=== PATIENT | male | born 1945 | race Caucasian/White ===

== ENCOUNTER 2017-05-27 06:46 | Inpatient (IN) | payer MEDICARE ==
[~2017-05-27] VITALS: Ht 177.8 cm; Wt 91.9 kg
[2017-05-27] VITALS (15 sets, daily range): BP systolic 107–167; BP diastolic 58–85; PULSE 46–141; RESP 15–20; TEMP 98.2–99.2; O2SAT 87–100
[~2017-05-27 06:46] MED LIST: AMLO2.5T PO; CALC600T12 PO; DIOV320T PO; DORZ1SOL2 LEFT EYE; FERR220E3 PO; FIORIC PO; FISH120014 PO; KLON2TAB PO; OMEP20TA39 PO; RITA20TA PO; ROXI5TAB4 PO; SINE50TA PO; TIZA4 PO; VITA-13 PO; ZOLP10TA3 PO
[2017-05-27] MEDS ORDERED: AMLO2.5T PO (07:07)
[2017-05-27] MEDS ORDERED: OMEP40CA2 (07:07)
[2017-05-27] MEDS ORDERED: DORZ2SOL LEFT EYE (07:07)
[2017-05-27] MEDS ORDERED: ZOLP10TA3 PO (07:07)
[2017-05-27] MEDS ORDERED: VALS1TAB70 PO (07:07)
[2017-05-27] MEDS ORDERED: FISH1000 (07:07)
[2017-05-27] MEDS ORDERED: ACET1TAB63 (07:07)
[2017-05-27] MEDS ORDERED: BUTA1CAP PO (07:07)
[2017-05-27] MEDS ORDERED: VITA400T14 PO (07:07)
[2017-05-27] MEDS ORDERED: FERR325T20 (07:07)
[2017-05-27] MEDS ORDERED: LEVO50TA4 PO (07:07)
[2017-05-27] MEDS ORDERED: CLON2TAB PO (07:07)
[2017-05-27] MEDS ORDERED: CARB25TA9 PO (07:07)
[2017-05-27] MEDS ORDERED: METH20CA4 PO (07:07)
[2017-05-27] MEDS ORDERED: TIZA4TAB PO (07:07)
[2017-05-27] MEDS ORDERED: OXYC1TAB63 PO (07:07)
--- NOTE | 2017-05-27 07:24 | PD ---
HPI Chief Complaint: Respiratory Symptoms Time Seen by Provider: 07:16 Travel History International Travel<30 days: No Contact w/Intl Traveler<30days: No Traveled to known affect area: No History of Present Illness HPI Patient is a 71-year-old male presents emergency department for evaluation of cough congestion and production of brown sputum for the past 3 days. Patient has a history of Parkinson's recurrent pneumonia. According to EMS the initial room air sat in the field was in the mid 80s, he was placed on DuoNeb treatment on arrival to the emergency department he satting fairly well on 3 L nasal cannula. States she has had pneumonia several times in the past and has been admitted several times in the past for it. Symptoms for the past 3 days, gradually worsening, context and associated signs and symptoms as above PFSH Past Medical History Anemia: Yes Arthritis: Yes Asthma: No Autoimmune Disease: No Blood Disorders: No Anxiety: Yes Depression: Yes Heart Rhythm Problems: No Cancer: No Cardiovascular Problems: Yes (LBBB, cardioversion for A-Flutter) High Cholesterol: No Chemotherapy: No Chest Pain: No Congestive Heart Failure: No COPD: No Cerebrovascular Accident: No Diabetes: No Diminished Hearing: No Endocrine: No Gastrointestinal Disorders: Yes (ERROSIVE GASTRITIS) GERD: Yes Glaucoma: No Genitourinary: No Headaches: Yes Hepatitis: No Hiatal Hernia: No Hypertension: Yes Immune Disorder: No Kidney Stones: No Medical other: Yes (PARKINSON'S) Musculoskeletal: Yes (hip, lumbar) Psychiatric: Yes Reproductive: No Respiratory: Yes Migraines: Yes Myocardial Infarction: No Radiation Therapy: No Renal Failure: No Seizures: Yes (1996) Sickle Cell Disease: No Sleep Apnea: No Thyroid Disease: No Ulcer: Yes (bulbar ulcer) Influenza Vaccination: No Past Surgical History Abdominal Surgery: Yes (appendectomy) AICD: No Appendectomy: Yes Arteriovenous Shunt: No Cardiac Surgery: No Cholecystectomy: No Ear Surgery: No Endocrine Surgery: No Eye Surgery: Yes (laser) Genitourinary Surgery: No Gynecologic Surgery: No Insulin Pump: No Joint Replacement: Yes Oral Surgery: No Pacemaker: No Thoracic Surgery: No Other Surgery: Yes Social History Alcohol Use: No Tobacco Use: No Substance Use: No Allergies-Medications (Allergen,Severity, Reaction): Coded Allergies: tramadol (Unverified Allergy, Severe, Seizures, 05/27/17) Reported Meds & Prescriptions Reported Meds & Active Scripts Active Reported Vitamin D2 (Ergocalciferol) 400 Unit Tab 50,000 Units PO DAILY Fish Oil ([place]-3 Fatty Acids) 340 Mg-1,000 Mg Cap 1,200 Mg Ferosul (Ferrous Sulfate) 325 Mg (65 Mg Iron) Tablet Levothyroxine (Levothyroxine Sodium) 50 Mcg Tab 50 Mcg PO DAILY Acetaminophen ER (Acetaminophen) 650 Mg Tablet.er Dorzolamide Opth Drops (Dorzolamide HCl) 2% Soln 1 Drop LEFT EYE TID Fioricet (Ygtxucriai-Ncciebnuzdnii-Dndetwvx) 50-300-40 Mg Cap 1 Cap PO Q4H PRN Carbidopa-Levodopa 25-100 Mg Tab 2 Tab PO BID Oxycodone-Acetaminophen 5-325 mg Tab 1 Tab PO Q4H PRN Tizanidine (Tizanidine HCl) 4 Mg Tab 4 Mg PO TID Zolpidem (Zolpidem Tartrate) 10 Mg Tab 10 Mg PO HS PRN Clonazepam 2 Mg Tab 4 Mg PO HS Methylphenidate CD 24 HR (Methylphenidate HCl) 20 Mg Capcr 20 Mg PO TID Valsartan 320 Mg Tab 320 Mg PO DAILY Amlodipine (Amlodipine Besylate) 2.5 Mg Tab 2.5 Mg PO DAILY Omeprazole 40 Mg Cap 40 Mg DAILY Review of Systems Except as stated in HPI: all other systems reviewed are Neg Physical Exam Narrative GENERAL: Well-developed well-nourished, no obvious distress. SKIN: Focused skin assessment warm/dry. HEAD: Atraumatic. Normocephalic. EYES: Pupils equal and round. No scleral icterus. No injection or drainage. ENT: No nasal bleeding or discharge. Mucous membranes pink and moist. The right TM does show some brownish mucus behind the TM but no bulging. NECK: Trachea midline. No JVD. CARDIOVASCULAR: Regular rate and rhythm. No murmur appreciated. RESPIRATORY: No accessory muscle use. Clear to auscultation. Perhaps a little decrease in the right base. No rales no rhonchi. GASTROINTESTINAL: Abdomen soft, non-tender, nondistended. Hepatic and splenic margins not palpable. MUSCULOSKELETAL: No obvious deformities. No clubbing. No cyanosis. No edema. NEUROLOGICAL: Awake and alert. No obvious cranial nerve deficits. Motor grossly within normal limits. Normal speech. PSYCHIATRIC: Appropriate mood and affect; insight and judgment normal. Data Data Last Documented VS Vital Signs Date Time Temp Pulse Resp B/P (MAP) Pulse Ox O2 Delivery O2 Flow Rate FiO2 05/27/17 07:58 86 17 127/65 (85) 98 Nasal Cannula 05/27/17 06:54 3.00 05/27/17 06:50 98.9 Orders Orders Sepsis Workup Initiated (05/27/17 ) Electrocardiogram (05/27/17 07:20) Complete Blood Count With Diff (05/27/17 07:20) Comprehensive Metabolic Panel (05/27/17 07:20) Prothrombin Time / Inr (Pt) (05/27/17 07:20) Act Partial Throm Time (Ptt) (05/27/17 07:20) Lactic Acid Sepsis Protocol (05/27/17 07:20) Magnesium (Mg) (05/27/17 07:20) Phosphorus (Po4) (05/27/17 07:20) Lipase (05/27/17 07:20) Ckmb (Isoenzyme) Profile (05/27/17 07:20) Troponin I (05/27/17 07:20) Urinalysis - C+S If Indicated (05/27/17 07:20) Blood Culture (05/27/17 07:20) Chest, Single Ap (05/27/17 07:20) Blood Gas Venous (Vbg) (05/27/17 07:20) Ecg Monitoring (05/27/17 07:20) Iv Access Insert/Monitor (05/27/17 07:20) Oximetry (05/27/17 07:20) Oxygen Administration (05/27/17 07:20) Oxycodone-Acetamin 5-325 Mg (Percocet (05/27/17 07:45) Ceftriaxone Inj (Rocephin Inj) (05/27/17 08:00) Azithromycin Inj (Zithromax Inj) (05/27/17 08:00) CKMB (05/27/17 07:28) CKMB% (05/27/17 07:28) Sodium Chlor 0.9% 1000 Ml Inj (Ns 1000 M (05/27/17 09:00) Piperacil-Tazo 4.5 Gm Premix (Zosyn 4.5 (05/27/17 09:30) Vancomycin Inj (Vancomycin Inj) (05/27/17 09:30) Admit Order (Ed Use Only) (05/27/17 ) Labs Laboratory Tests Test 05/27/17 07:28 05/27/17 07:34 05/27/17 07:35 05/27/17 08:02 White Blood Count 4.5 TH/MM3 Red Blood Count 3.50 MIL/MM3 Hemoglobin 10.7 GM/DL Hematocrit 31.4 % Mean Corpuscular Volume 89.5 FL Mean Corpuscular Hemoglobin 30.5 PG Mean Corpuscular Hemoglobin Concent 34.1 % Red Cell Distribution Width 14.9 % Platelet Count 135 TH/MM3 Mean Platelet Volume 8.8 FL Neutrophils (%) (Auto) 74.0 % Lymphocytes (%) (Auto) 18.0 % Monocytes (%) (Auto) 6.6 % Eosinophils (%) (Auto) 1.0 % Basophils (%) (Auto) 0.4 % Neutrophils # (Auto) 3.3 TH/MM3 Lymphocytes # (Auto) 0.8 TH/MM3 Monocytes # (Auto) 0.3 TH/MM3 Eosinophils # (Auto) 0.0 TH/MM3 Basophils # (Auto) 0.0 TH/MM3 CBC Comment DIFF FINAL Differential Comment Prothrombin Time 10.2 SEC Prothromb Time International Ratio 1.0 RATIO Activated Partial Thromboplast Time 25.6 SEC Blood Urea Nitrogen 27 MG/DL Creatinine 0.97 MG/DL Random Glucose 90 MG/DL Total Protein 5.9 GM/DL Albumin 2.9 GM/DL Calcium Level 8.3 MG/DL Phosphorus Level 2.4 MG/DL Magnesium Level 1.6 MG/DL Alkaline Phosphatase 125 U/L Aspartate Amino Transf (AST/SGOT) 206 U/L Alanine Aminotransferase (ALT/SGPT) 35 U/L Total Bilirubin 1.5 MG/DL Sodium Level 127 MEQ/L Potassium Level 3.6 MEQ/L Chloride Level 94 MEQ/L Carbon Dioxide Level 21.7 MEQ/L Anion Gap 11 MEQ/L Estimat Glomerular Filtration Rate 77 ML/MIN Total Creatine Kinase 2017 U/L Creatine Kinase MB 6.2 NG/ML Creatine Kinase MB % 0.3 % Troponin I 0.02 NG/ML Lipase 61 U/L Lactic Acid Level 1.4 mmol/L Urine Color YELLOW Urine Turbidity CLEAR Urine pH 6.0 Urine Specific [place] 1.018 Urine Protein NEG mg/dL Urine Glucose (UA) NEG mg/dL Urine Ketones NEG mg/dL Urine Occult Blood NEG Urine Nitrite NEG Urine Bilirubin NEG Urine Urobilinogen 4.0 MG/DL Urine Leukocyte Esterase NEG Urine RBC LESS THAN 1 /hpf Urine WBC LESS THAN 1 /hpf Microscopic Urinalysis Comment CATH-CULT NOT IND Blood Gas Puncture Site RAC Blood Gas Patient Temperature 98.6 Venous Blood pH 7.38 Venous Blood Partial Pressure CO2 45 mmHg Venous Blood Partial Pressure O2 17 mmHg Venous Blood HCO3 26 mmol/L Venous Blood Oxygen Saturation 20 % Venous Blood Oxygen Content 2.9 Vol % Venous Blood Base Excess 1.3 mmol/L Oxygen Delivery Device NASAL CANNULA Blood Gas Liter Flow 3 L/M MDM Medical Decision Making Medical Screen Exam Complete: Yes Emergency Medical Condition: Yes Differential Diagnosis Pneumonia, sepsis, hypoxic respiratory failure Narrative Course Patient room to the emergency department, appears fairly well, pneumonia on chest x-ray, started on broad-spectrum antibiotics as he is recently been on azithromycin. He is tolerating 3 L nasal cannula just fine. Patient was discussed with hospitalist for admission will go to [facility] given his high level of hypoxia prior to arrival. Discussed with the patient and his and they are agreeable as well per Diagnosis Primary Impression: Pneumonia Additional Impression: Acute respiratory failure with hypoxia Admitting Information Admitting Physician Requests: Admit Condition: Stable Ming Santiago MD May 27, 2017 07:24
[2017-05-27] MEDS ORDERED: oxyCODONE/ACETAMINOPHEN 5 MG/325 MG TAB PO ONE (07:45)
--- NOTE | 2017-05-27 07:47 | RADRPT ---
EXAM DATE/TIME: 05/27/2017 07:31 [facility] COMPARISON: CHEST SINGLE AP, October 08, 2015, 2:04. INDICATIONS : Shortness of breath. Cough. MEDICAL HISTORY : Hypertension. SURGICAL HISTORY : None. ENCOUNTER: Initial ACUITY: 3 days PAIN SCORE: 0/10 LOCATION: Bilateral chest FINDINGS: Bibasilar patchiness (right slightly worse than left) is consistent with probable pneumonia. Clinical correlation is recommended. The heart is stable. CONCLUSION: Bibasilar patchiness (right slightly worse than left) is consistent with probable pneumonia. Clinical correlation is recommended. Ming Stovall MD on May 27, 2017 at 7:43 Board Certified Radiologist. This report was verified electronically.
[2017-05-27 08:00] LABS: AUTOMATED NEUTROPHIL # 3.3 TH/MM3 (1.8-7.7); BASOPHIL % 0.4 % (0.0-2.0); HEMATOCRIT 31.4 % (39.0-51.0); HEMOGLOBIN 10.7 GM/DL (13.0-17.0); LYMPHOCYTE # 0.8 TH/MM3 (1.0-4.8); MEAN CELL VOLUME 89.5 FL (80.0-100.0); MEAN CORPUSCULAR HEMOGLOBIN 30.5 PG (27.0-34.0); MEAN CORPUSCULAR HGB CONC 34.1 % (32.0-36.0); MEAN PLATELET VOLUME 8.8 FL (7.0-11.0); MONO % 6.6 % (0.0-8.0); MONOCYTE # 0.3 TH/MM3 (0-0.9); PLATELET COUNT 135 TH/MM3 (150-450); RED CELL DISTRIBUTION WIDTH 14.9 % (11.6-17.2); WHITE BLOOD COUNT 4.5 TH/MM3 (4.0-11.0)
[2017-05-27] MEDS ORDERED: cefTRIAXone INJ 1,000 MG in SODIUM CHLORIDE 0.9% INJ 100 ML IV ONE (08:00)
[2017-05-27] MEDS ORDERED: AZITHROMYCIN INJ 500 MG in SODIUM CHLOR 0.9% 250 ML INJ 250 ML IV ONE (08:00)
[2017-05-27 08:04] LABS: PROTHROMBIN TIME - PATIENT 10.2 SEC (9.8-11.6)
[2017-05-27 08:12] LABS: ALBUMIN 2.9 GM/DL (3.4-5.0); ALT (GPT) 35 U/L (12-78); AST (GOT) 206 U/L (15-37); BICARBONATE 21.7 MEQ/L (21.0-32.0); BLOOD UREA NITROGEN 27 MG/DL (7-18); CALCIUM 8.3 MG/DL (8.5-10.1); CHLORIDE 94 MEQ/L (98-107); CREATININE 0.97 MG/DL (0.60-1.30); GLOMERULAR FILTRATION RATE 77 ML/MIN (>89); GLUCOSE,RANDOM 90 MG/DL (74-106); MAGNESIUM 1.6 MG/DL (1.5-2.5); PHOSPHORUS 2.4 MG/DL (2.5-4.9); SODIUM (NA) 127 MEQ/L (136-145)
[2017-05-27 08:26] LABS: ALKALINE PHOSPHATASE 125 U/L (45-117); TOTAL BILIRUBIN ADULT 1.5 MG/DL (0.2-1.0); TOTAL PROTEIN 5.9 GM/DL (6.4-8.2); TROPONIN I 0.02 NG/ML (0.02-0.05)
[2017-05-27 08:41] LABS: BILIRUBIN, URINE NEG (NEG); BLOOD, URINE NEG (NEG); GLUCOSE,URINE NEG (NEG); KETONE, URINE NEG (NEG); NITRITE,URINE NEG (NEG); URINE COLOR YELLOW (YELLW/STRAW); URINE LEUKOCYTE ESTERASE NEG (NEG)
[2017-05-27] MEDS ORDERED: SODIUM CHLOR 0.9% 1000 ML INJ 1,000 ML IV ONE (09:00)
[2017-05-27] MEDS ORDERED: VANCOMYCIN INJ 1,000 MG in SODIUM CHLOR 0.9% 250 ML INJ 250 ML IV ONE ×2 (09:30→09:45)
[2017-05-27] MEDS ORDERED: PIPERACIL-TAZO 4.5 GM PREMIX 100 ML IV ONE (09:30)
[2017-05-27] MEDS ORDERED: Vancomycin Consult Pharmacy 1 EA OTHER SCH (09:45)
[2017-05-27] MEDS ORDERED: RESP: ALBUTEROL 2.5 MG/IPRATROPIUM 0.5 MG NEB (PRN) INH (10:00)
[2017-05-27] MEDS ORDERED: guaiFENesin/DEXTROMETHORPHAN 200 MG/20 MG/10 ML CUP PO PRN (10:00)
[2017-05-27] MEDS ORDERED: ONDANSETRON HCL 4 MG/2 ML VIAL IV PUSH PRN (10:00)
[2017-05-27] MEDS: RESP: ALBUTEROL 2.5 MG/IPRATROPIUM 0.5 MG NEB (SCH) INH ×2 (10:47→15:30)
[2017-05-27] MEDS: LEVOFLOXACIN 750 MG PREMIX INJ 150 ML IV SCH (12:59)
[2017-05-27] MEDS: HEPARIN SODIUM - SQ 10,000 UNITS/ML VIAL SQ SCH ×2 (13:00→22:23)
--- NOTE | 2017-05-27 13:02 | HHI.HP ---
HPI Service [facility] Primary Care Physician Ashu Carreno III, MD Admission Diagnosis Pneumonia, Hypoxic Resp failure. Diagnoses: Chief Complaint: Short of breath Travel History International Travel<30 Days: No Contact w/Intl Traveler <30 Da: No Traveled to Known Affected Are: No History of Present Illness 71 years old male admitted to the ED with worsening short of breath and cough with dark brownish sputum for the last 3-4 days, patient has a history of Parkinson disease and recurrent pneumonia, he told me last pneumonia he had was 2 years ago, also he stated he was prescribed recently and Zithromax for what he stated "UTI urine infection ", patient denied fever or chills chest pain, no abdominal pain diarrhea constipation, dysuria urgency or frequency Review of Systems All systems reviewed and was positive for what is mentioned in history of present illness otherwise negative Past Family Social History Past Medical History anemia Arthritis Depression LBBB A flutter with cardioversion in the past Gastritis GERD Hypertension Parkinson disease Bilateral knee replacement Appendectomy Past Surgical History As above Allergies: Coded Allergies: tramadol (Unverified Allergy, Severe, Seizures, 05/27/17) Family History Review with the patient,not aware of significant medical history related to her problem runs in the family Social History Denied tobacco alcohol or illicit drug abuse Physical Exam Vital Signs Vital Signs Date Time Temp Pulse Resp B/P (MAP) Pulse Ox O2 Delivery O2 Flow Rate FiO2 05/27/17 12:05 62 20 107/58 (74) 96 Nasal Cannula 3.00 05/27/17 10:49 98 Nasal Cannula 3.00 05/27/17 07:58 86 17 127/65 (85) 98 Nasal Cannula 05/27/17 06:54 95 22 95 Nasal Cannula 3.00 05/27/17 06:50 98.9 95 129/69 (89) Physical Exam GENERAL: This is a well-nourished, well-developed patient, in no apparent distress. SKIN: No rashes, warm and dry HEAD: Atraumatic. Normocephalic. EYES: Pupils equal round and reactive. Extraocular motions intact. No scleral icterus. ENT: Nose without bleeding, or drainage, Airway patent. NECK: Trachea midline. Supple CARDIOVASCULAR: Regular rate and rhythm without murmurs, gallops, or rubs. RESPIRATORY: Bilateral crackles with diminished breath sounds bibasilar GASTROINTESTINAL: Abdomen soft, non-tender, nondistended. Positive bowel sounds MUSCULOSKELETAL: Extremities without clubbing, cyanosis, or edema. Pedal pulses appreciated NEUROLOGICAL: Awake and alert. Moves all extremity. Normal speech.no focal neurological deficit Laboratory Laboratory Tests Test 05/27/17 07:28 05/27/17 07:34 05/27/17 07:35 05/27/17 08:02 White Blood Count 4.5 Red Blood Count 3.50 Hemoglobin 10.7 Hematocrit 31.4 Mean Corpuscular Volume 89.5 Mean Corpuscular Hemoglobin 30.5 Mean Corpuscular Hemoglobin Concent 34.1 Red Cell Distribution Width 14.9 Platelet Count 135 Mean Platelet Volume 8.8 Neutrophils (%) (Auto) 74.0 Lymphocytes (%) (Auto) 18.0 Monocytes (%) (Auto) 6.6 Eosinophils (%) (Auto) 1.0 Basophils (%) (Auto) 0.4 Neutrophils # (Auto) 3.3 Lymphocytes # (Auto) 0.8 Monocytes # (Auto) 0.3 Eosinophils # (Auto) 0.0 Basophils # (Auto) 0.0 CBC Comment DIFF FINAL Differential Comment Prothrombin Time 10.2 Prothromb Time International Ratio 1.0 Activated Partial Thromboplast Time 25.6 Blood Urea Nitrogen 27 Creatinine 0.97 Random Glucose 90 Total Protein 5.9 Albumin 2.9 Calcium Level 8.3 Phosphorus Level 2.4 Magnesium Level 1.6 Alkaline Phosphatase 125 Aspartate Amino Transf (AST/SGOT) 206 Alanine Aminotransferase (ALT/SGPT) 35 Total Bilirubin 1.5 Sodium Level 127 Potassium Level 3.6 Chloride Level 94 Carbon Dioxide Level 21.7 Anion Gap 11 Estimat Glomerular Filtration Rate 77 Total Creatine Kinase 2017 Creatine Kinase MB 6.2 Creatine Kinase MB % 0.3 Troponin I 0.02 Lipase 61 Lactic Acid Level 1.4 Urine Color YELLOW Urine Turbidity CLEAR Urine pH 6.0 Urine Specific [place] 1.018 Urine Protein NEG Urine Glucose (UA) NEG Urine Ketones NEG Urine Occult Blood NEG Urine Nitrite NEG Urine Bilirubin NEG Urine Urobilinogen 4.0 Urine Leukocyte Esterase NEG Urine RBC LESS THAN 1 Urine WBC LESS THAN 1 Microscopic Urinalysis Comment CATH-CULT NOT IND Blood Gas Puncture Site RAC Blood Gas Patient Temperature 98.6 Venous Blood pH 7.38 Venous Blood Partial Pressure CO2 45 Venous Blood Partial Pressure O2 17 Venous Blood HCO3 26 Venous Blood Oxygen Saturation 20 Venous Blood Oxygen Content 2.9 Venous Blood Base Excess 1.3 Oxygen Delivery Device NASAL CANNULA Blood Gas Liter Flow 3 Date/Time Source Procedure Growth Status 05/27/17 07:40 Blood Peripheral Aerobic Blood Culture Pending Received 05/27/17 07:40 Blood Peripheral Anaerobic Blood Culture Pending Received Result Diagram: 05/27/1772705/27/17727 Imaging Last Impressions Chest X-Ray 05/27/17719 Signed Impressions: Service Date/Time: Saturday, May 27, 2017 07:31 - CONCLUSION: Bibasilar patchiness (right slightly worse than left) is consistent with probable pneumonia. Clinical correlation is recommended. MD Rashida Vela VTE Risk Assessment Rashida VTE Risk Assessment: Mod/High Risk (score >= 2) Caprini Risk Assessment Model Point Value = 1 Point Value = 2 Point Value = 3 Point Value = 5 Age 41-60 Minor surgery BMI > 25 kg/m2 Swollen legs Varicose veins or History of unexplained or recurrent spontaneous Oral contraceptives or hormone replacement Sepsis (< 1 month) Serious lung disease, including pneumonia (< 1 month) Abnormal pulmonary function Acute myocardial infarction Congestive heart failure (< 1 month) History of inflammatory bowel disease Medical patient at bed rest Age 61-74 Arthroscopic surgery Major open surgery (> 45 min) Laparoscopic surgery (> 45 min) Malignancy Confined to bed (> 72 hours) Immobilizing plaster cast Central venous access Age >= 75 History of VTE Family history of VTE Factor V Leiden Prothrombin [id number] Lupus anticoagulant Anticardiolipin antibodies Elevated serum homocysteine Heparin-induced thrombocytopenia Other congenital or acquired thrombophilia Stroke (< 1 month) Elective arthroplasty Hip, pelvis, or leg fracture Acute spinal cord injury (< 1 month) Prophylaxis Regimen Total Risk Factor Score Risk Level Prophylaxis Regimen 0-1 Low Early ambulation 2 Moderate Order ONE of the following: *Sequential Compression Device (SCD) *Heparin 5000 units SQ BID 3-4 Higher Order ONE of the following medications: *Heparin 5000 units SQ TID *Enoxaparin/Lovenox 40 mg SQ daily (WT < 150 kg, CrCl > 30 mL/min) *Enoxaparin/Lovenox 30 mg SQ daily (WT < 150 kg, CrCl > 10-29 mL/min) *Enoxaparin/Lovenox 30 mg SQ BID (WT < 150 kg, CrCl > 30 mL/min) AND/OR *Sequential Compression Device (SCD) 5 or more Highest Order ONE of the following medications: *Heparin 5000 units SQ TID (Preferred with Epidurals) *Enoxaparin/Lovenox 40 mg SQ daily (WT < 150 kg, CrCl > 30 mL/min) *Enoxaparin/Lovenox 30 mg SQ daily (WT < 150 kg, CrCl > 10-29 mL/min) *Enoxaparin/Lovenox 30 mg SQ BID (WT < 150 kg, CrCl > 30 mL/min) AND *Sequential Compression Device (SCD) Assessment and Plan Assessment and Plan 71 years old male with history of recurrent pneumonia last one was 2 years ago presented with short of breath Bilateral pneumonia CAP: -Showed on chest x-ray, admit to telemetry -Started on Rocephin and Zithromax, will upgrade to broader spectrum Vanco Zosyn and Levaquin considering his comorbidity and high suspicious for recent pneumonia. -Check sputum culture, urine antigen for Legionella and pneumococcal -Check lactic acid -IV fluid gentle -DuoNeb -Consider starting Solu-Medrol H/O hypertension, parkinsonism, hypothyroidism, LBBB, depression: Continue home med rec DVT prophylaxis with heparin and SCD Discussed Condition With Patient in ED physician Physician Certification 2 Midnight Certification Type: Admission for Inpatient Services Order for Inpatient Services The services are ordered in accordance with Medicare regulations or non- Medicare payer requirements, as applicable. In the case of services not specified as inpatient-only, they are appropriately provided as inpatient services in accordance with the 2-midnight benchmark. Estimated LOS (days): 3 days is the estimated time the patient will need to remain in the hospital, assuming treatment plan goals are met and no additional complications. Post-Hospital Plan: Not yet determined Bautista Sam MD May 27, 2017 13:01
[2017-05-27] MEDS: SODIUM CHLOR 0.9% 1000 ML INJ 1,000 ML IV SCH (15:09)
[2017-05-27] MEDS ORDERED: ACETAMINOPHEN 325 MG TAB PO PRN (17:00)
[2017-05-27] MEDS ORDERED: ACETAMINOPHEN/HYDROcodone 325 MG/5 MG TAB PO PRN (17:00)
[2017-05-27] MEDS: PIPERACIL-TAZO 4.5 GM PREMIX 100 ML IV SCH ×2 (18:30→23:28)
[2017-05-27] MEDS ORDERED: MIDAZOLAM HCL 5 MG/ML VIAL (1 ML) ONE (19:13)
[2017-05-27] MEDS ORDERED: MISCELLANEOUS NURSING INFORMATION XX SCH (19:30)
[2017-05-27] MEDS ORDERED: CHLORHEXIDINE GLUCONATE 2 % 1 PACK (2 CLOTHS) TOP PRN (19:30)
--- NOTE | 2017-05-27 19:34 | PD.CONS ---
[facility] Service Critical Care Medicine Consult Requested By Dr. Sam Reason for Consult Critical care management after choking Primary Care Physician Ashu Carreno III, MD History of Present Illness 71-year-old male with past medical history of Parkinson's disease and recurrent pneumonia. 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 His chest x-ray showed bibasilar infiltrates. He had a normal white blood cell count. He received Rocephin, azithromycin, Zosyn, vancomycin in the emergency department. He was admitted to the hospitalist service and placed on Zosyn, vancomycin, Levaquin. He was on 3 L nasal cannula with sats 96-98%. Tonight he was eating chicken and mashed potatoes and had a choking episode. While choking he vomited. He became cyanotic and sats were in the 70s. Large amounts of food were suctioned from his oropharynx by the respiratory therapist and [facility] nurse. Sats remained in the 70s. I intubated patient and he was transferred to CVICU where he underwent diagnostic and therapeutic bronchoscopy Review of Systems ROS Limitations: Intubated Past Family Social History Allergies: Coded Allergies: tramadol (Unverified Allergy, Severe, Seizures, 05/27/17) Past Medical History Parkinson's disease Recurrent pneumonia with prior prolonged hospitalization in 2007 Hypertension Left bundle branch block Iron deficiency anemia Hypothyroidism Anxiety Duodenal ulcers, gastritis, colonic ulcers Past Surgical History Thorascopic wedge biopsy right upper lobe and right lower lobe 01/08/2003 (Dr. Jie Guerrero) Left carpal tunnel release 04/08/2002 Right wrist arthroscopic and joint debridement 07/28/03 Right scaphoid ossicle excision 12/29/03 Diagnostic and therapeutic bronchoscopy 02/04/2008 Family History Unable to obtain from patient due to clinical condition Physical Exam Vital Signs Vital Signs Date Time Temp Pulse Resp B/P (MAP) Pulse Ox O2 Delivery O2 Flow Rate FiO2 05/27/17 17:52 99.2 90 18 153/85 (107) 95 05/27/17 15:43 05/27/17 15:42 46 16 140/66 (90) 100 Aerosol Mask 05/27/17 12:05 62 20 107/58 (74) 96 Nasal Cannula 3.00 05/27/17 10:49 98 Nasal Cannula 3.00 05/27/17 07:58 86 17 127/65 (85) 98 Nasal Cannula 05/27/17 06:54 95 22 95 Nasal Cannula 3.00 05/27/17 06:50 98.9 95 129/69 (89) Physical Exam GENERAL: Well-developed, chronically ill-appearing male who is laying in CICU bed. SKIN: Warm and dry. HEAD: Atraumatic. Normocephalic. EYES: Pupils 2 mm and sluggishly reactive bilaterally.. No scleral icterus. No injection or drainage. ENT: There is vomitus in his left nare. NECK: Trachea midline. Jugular veins flat. CARDIOVASCULAR: Tachycardic, regular. No murmurs rubs or gallops. RESPIRATORY: Distant breath sounds bilaterally with rhonchi. GASTROINTESTINAL: Abdomen soft, non-tender, nondistended. Hepatic and splenic margins not palpable. MUSCULOSKELETAL: Extremities without clubbing, cyanosis. Trace pedal edema. NEUROLOGICAL: Eyes open with some purposeful spontaneous movements of his extremities. Not following commands. Laboratory Laboratory Tests Test 05/27/17 07:28 05/27/17 07:34 05/27/17 07:35 05/27/17 08:02 White Blood Count 4.5 Red Blood Count 3.50 Hemoglobin 10.7 Hematocrit 31.4 Mean Corpuscular Volume 89.5 Mean Corpuscular Hemoglobin 30.5 Mean Corpuscular Hemoglobin Concent 34.1 Red Cell Distribution Width 14.9 Platelet Count 135 Mean Platelet Volume 8.8 Neutrophils (%) (Auto) 74.0 Lymphocytes (%) (Auto) 18.0 Monocytes (%) (Auto) 6.6 Eosinophils (%) (Auto) 1.0 Basophils (%) (Auto) 0.4 Neutrophils # (Auto) 3.3 Lymphocytes # (Auto) 0.8 Monocytes # (Auto) 0.3 Eosinophils # (Auto) 0.0 Basophils # (Auto) 0.0 CBC Comment DIFF FINAL Differential Comment Prothrombin Time 10.2 Prothromb Time International Ratio 1.0 Activated Partial Thromboplast Time 25.6 Blood Urea Nitrogen 27 Creatinine 0.97 Random Glucose 90 Total Protein 5.9 Albumin 2.9 Calcium Level 8.3 Phosphorus Level 2.4 Magnesium Level 1.6 Alkaline Phosphatase 125 Aspartate Amino Transf (AST/SGOT) 206 Alanine Aminotransferase (ALT/SGPT) 35 Total Bilirubin 1.5 Sodium Level 127 Potassium Level 3.6 Chloride Level 94 Carbon Dioxide Level 21.7 Anion Gap 11 Estimat Glomerular Filtration Rate 77 Total Creatine Kinase 2017 Creatine Kinase MB 6.2 Creatine Kinase MB % 0.3 Troponin I 0.02 Lipase 61 Lactic Acid Level 1.4 Urine Color YELLOW Urine Turbidity CLEAR Urine pH 6.0 Urine Specific [place] 1.018 Urine Protein NEG Urine Glucose (UA) NEG Urine Ketones NEG Urine Occult Blood NEG Urine Nitrite NEG Urine Bilirubin NEG Urine Urobilinogen 4.0 Urine Leukocyte Esterase NEG Urine RBC LESS THAN 1 Urine WBC LESS THAN 1 Microscopic Urinalysis Comment CATH-CULT NOT IND Blood Gas Puncture Site RAC Blood Gas Patient Temperature 98.6 Venous Blood pH 7.38 Venous Blood Partial Pressure CO2 45 Venous Blood Partial Pressure O2 17 Venous Blood HCO3 26 Venous Blood Oxygen Saturation 20 Venous Blood Oxygen Content 2.9 Venous Blood Base Excess 1.3 Oxygen Delivery Device NASAL CANNULA Blood Gas Liter Flow 3 Date/Time Source Procedure Growth Status 05/27/17 07:40 Blood Peripheral Aerobic Blood Culture Pending Received 05/27/17 07:40 Blood Peripheral Anaerobic Blood Culture Pending Received 05/27/17 07:35 Urine Clean Catch Legionella Antigen - Final PRESUMPTIVE NEGATIVE FOR LEGIONELLA P... Complete 05/27/17 07:35 Urine Clean Catch Streptococcus pneumoniae Antigen (M - Final PRESUMPTIVE NEGATIVE FOR STREPTOCOCCU... Complete Result Diagram: 05/27/1728 05/27/1728 Assessment and Plan Problem List: (1) Left bundle branch block ICD Code: I44.7 - Left bundle-branch block, unspecified Status: Chronic (2) Hypertension ICD Code: I10 - Hypertension Status: Chronic (3) Acute respiratory failure with hypoxia ICD Code: J96.01 - Acute respiratory failure with hypoxia Status: Acute (4) Choking due to food in larynx ICD Code: T17.320A - Food in larynx causing asphyxiation, initial encounter Status: Acute Assessment and Plan NEURO: Parkinson's disease Anxiety Propofol for sedation Fentanyl for analgosedation Target RASS -2 Daily sedation vacation OPHTHO: Glaucoma Continue trusopt RESP: Choking with aspiration and airway Acute respiratory failure Acute respiratory acidemia on ABG postintubation. PRVC adjusted and then ultimately placed on PC/AC to achieve oxygenation and ventilation. PEEP 10 Ventilator Bundle DuoNeb every 4 hours. Daily sedation vacation and spontaneous breathing trial. CXR bilateral opacities, satisfactory ETT position. CV: Left bundle branch block Hypertension Continue Norvasc 2.5 daily Hydralazine as needed for systolic blood pressure greater than 160 NS 1 L bolus now. 0.9 NaCl at 125 L per hour GI: Speech therapy to evaluate swallow when extubated. FEN/RENAL: Insert Corona. Monitor intake and output. Monitor electrolytes. Replace electrolytes as indicated per ICU electrolyte replacement protocol. ID: Sepsis present on admission Aspiration pneumonia Continue Zosyn, vancomycin, Levaquin initiated 05/27. Follow-up results of bronchial washing 05/27/17 Follow up blood culture from 05/27/17. Urine Legionella and pneumococcal antigen negative. HEME: Iron deficiency anemia Ferrous sulfate 300 mg per OG daily ENDO: Hypothyroidism Obtained TSH--> normal. Synthroid 50 mcg po daily PROPH: SCDs/continue heparin 5000 units subcutaneous every 8 hours for DVT prophylaxis. Famotidine 20 mg IV every 12 hours for stress ulcer prophylaxis. ACCESS: PIV providing adequate access at this time Full code I called after this event but there was no answer. I was informed she left the hospital and was escorted out by CIC nurse. Critical care time 60 minutes exclusive of separately billable procedures. Orquidea Trivedi MD May 27, 2017 19:34
--- NOTE | 2017-05-27 19:36 | PD.PROCEDR ---
Procedure Note Procedure PROCEDURE NOTE PROCEDURE: Endotracheal intubation INDICATION: Acute respiratory arrest. Patient was admitted earlier today for pneumonia and was reportedly on 3 L nasal cannula with sats 96-98%. DETAILS OF PROCEDURE: I was called to patients bedside where he was on CIC with respiratory arrest. Patient was eating and began choking and became cyanotic. The oropharynx had been suctioned by Oracio RN and RT and was bagged with BVM. There was adequate chest rise when I arrived but sats were 76%. The oropharynx was suctioned and jaw thrust was performed. Patient was placed in optimal position and preoxygenated with 100% FiO2 via [id number]. Oximeter oxygen saturation of 80% was obtained prior to direct laryngoscopy. The patient was administered Etomidate 20 mg IV for sedation and rocuronium 50 mg IV. Direct laryngoscopy was performed with a 4 Whatley laryngoscope blade and a grade I Cormack-Lehane view was obtained. On single attempt a size 8.0 endotracheal tube was visualized passing through the cords. Correct placement was confirmed with colorimetric CO2 detector. Breath sounds were equal bilaterally. No sounds auscultated over the stomach. The endotracheal tube was secured with a commercial tube wright at a depth of 24 cm at the lips. The patient was connected to the ventilator. The patient tolerated the procedure well without any apparent complication. Oxygen saturations were maintained greater than 79% at all times. Stat chest x-ray was ordered and demonstrated satisfactory endotracheal tube position. Orquidea Trivedi MD May 27, 2017 19:36
[2017-05-27] MEDS ORDERED: MIDAZOLAM HCL 5 MG/5 ML VIAL IV PUSH ONE (19:45)
[2017-05-27] MEDS ORDERED: ROCURONIUM INJ 50 MG/5 ML VIAL IV ONE (19:45)
--- NOTE | 2017-05-27 19:48 | EKG ---
Date Performed: 05/27/2017 Time Performed: 08:30:57 PTAGE: 71 years EKG: Sinus rhythm LEFT BUNDLE BRANCH BLOCK Since the previous tracing, no significant change noted ABNORMAL ECG PREVIOUS TRACING : 10/08/2015 01.51 DOCTOR: Ora Burnett Interpretating Date/Time 05/27/2017 19:46:08
--- NOTE | 2017-05-27 19:57 | RADRPT ---
EXAM DATE/TIME: 05/27/2017 19:33 [facility] COMPARISON: CHEST SINGLE AP, May 27, 2017, 7:31. INDICATIONS : Evaluate intubation MEDICAL HISTORY : Hypertension. Cardiovascular disease. Seizures. Gastroesophageal reflux disease. SURGICAL HISTORY : Appendectomy. Vasectomy ENCOUNTER: Subsequent ACUITY: 1 day PAIN SCORE: 10/10 LOCATION: Bilateral chest FINDINGS: ET in good position. Patchy airspace disease and interstitial edema in both lungs. Cardiac silhouet te appropriate. No pneumothorax. The portion of the bony skeleton visualized is unremarkable. CONCLUSION: ET in good position. Increasing airspace disease as above. Anthony Jasso MD FACR on May 27, 2017 at 19:54 Board Certified Radiologist. This report was verified electronically.
[2017-05-27] MEDS: CHLORHEXIDINE 0.12% (ORAL KIT) 15 ML CUP MT SCH (20:00)
--- NOTE | 2017-05-27 20:21 | PD.PROCEDR ---
Procedure Note Procedure Date: Procedure: Therapeutic and diagnostic Fiberoptic bronchoscopy with bronchoalveolar lavage Indication: Acute respiratory failure with hypoxemia after aspiration of food into the airway. Details of procedure: Was unable to reach family for consent. Proceeded with procedure which was an patient's best interest due to respiratory failure with ongoing hypoxemia with sats in the 80s post intubation. The patient was preoxygenated with 100% FiO2 via endotracheal tube. He had received Versed 10 mg IV and Fentanyl 100 mcg IV and was on propofol drip at 40 mcg/kg/min. I entered the endotracheal tube with a disposable flexible bronchoscope. There were thick white secretions noted in bilateral mainstem bronchus but they were not causing complete occlusion. The RUL subsegments were clear of significant secretions. The RML and RLL subsegments had white secretions that were removed with aid of 5 ml saline wash x2. The PORFIRIO had white secretions that were removed with 5 mL wash x1. There was erythema of L lower lobe bronchi that was consistent with aspiration injury and white mucous plugs were removed there was well. Bronchoscope was advanced into lingula and 40 mL of saline was instilled with 25 mL of cloudy fluid return that was sent for Gram stain culture and sensitivity. The patient tolerated the procedure well without any apparent complications. Orquidea Trivedi MD May 27, 2017 20:21
[2017-05-27] MEDS ORDERED: fentaNYL DRIP 250 ML IV PRN (20:30)
[2017-05-27] MEDS ORDERED: POTASSIUM PHOSPHATE MONOBASIC 500 MG TAB PO/TUBE PRN (20:45)
[2017-05-27] MEDS ORDERED: POTASSIUM CHLOR 20 MEQ PREMIX 100 ML IV PRN (20:45)
[2017-05-27] MEDS ORDERED: POTASSIUM PHOSPHATE MONOBASIC 500 MG TAB PO PRN (20:45)
[2017-05-27] MEDS ORDERED: POTASSIUM CHLOR 40 MEQ PREMIX 100 ML IV PRN ×2 (20:45)
[2017-05-27] MEDS ORDERED: POTASSIUM PHOSPHATE INJ 30 MMOL in SODIUM CHLOR 0.9% 250 ML INJ 250 ML IV PRN (20:45)
[2017-05-27] MEDS ORDERED: hydrALAZINE HCL 20 MG/ML VIAL IV PUSH PRN (20:45)
[2017-05-27] MEDS ORDERED: MAGNESIUM SULFATE INJ 4 GM in SODIUM CHLORIDE 0.9% INJ 92 ML IV PRN (20:45)
[2017-05-27] MEDS ORDERED: MAGNESIUM SULFATE INJ 2 GM in SODIUM CHLORIDE 0.9% INJ 96 ML IV PRN (20:45)
[2017-05-27] MEDS: amLODIPine BESYLATE 5 MG TAB PO SCH (20:45)
[2017-05-27] MEDS ORDERED: POTASSIUM CHLORIDE 25 MEQ EFFERVESCENT TAB PO PRN (20:45)
[2017-05-27] MEDS ORDERED: MAGNESIUM OXIDE 400 MG TAB PO PRN (20:45)
[2017-05-27] MEDS ORDERED: SODIUM PHOSPHATE INJ 30 MMOL in SODIUM CHLOR 0.9% 250 ML INJ 240 ML IV PRN (20:45)
[2017-05-27] MEDS ORDERED: PILL SPLITTER OTHER PRN (21:00)
[2017-05-27] MEDS: CARBIDOPA/LEVODOPA 25 MG/100 MG TAB PO SCH (21:00)
[2017-05-27 21:57] LABS: AUTOMATED NEUTROPHIL # 6.4 TH/MM3 (1.8-7.7); BASOPHIL % 0.4 % (0.0-2.0); EOSINOPHIL # 0.1 TH/MM3 (0-0.4); EOSINOPHIL % 0.9 % (0.0-4.0); HEMATOCRIT 34.2 % (39.0-51.0); HEMOGLOBIN 11.4 GM/DL (13.0-17.0); LYMPH % 18.4 % (9.0-44.0); LYMPHOCYTE # 1.6 TH/MM3 (1.0-4.8); MEAN CELL VOLUME 91.9 FL (80.0-100.0); MEAN CORPUSCULAR HEMOGLOBIN 30.6 PG (27.0-34.0); MEAN CORPUSCULAR HGB CONC 33.3 % (32.0-36.0); MEAN PLATELET VOLUME 9.2 FL (7.0-11.0); MONO % 5.7 % (0.0-8.0); MONOCYTE # 0.5 TH/MM3 (0-0.9); NEUT % 74.6 % (16.0-70.0); PLATELET COUNT 197 TH/MM3 (150-450); RED BLOOD COUNT 3.72 MIL/MM3 (4.50-5.90); RED CELL DISTRIBUTION WIDTH 14.9 % (11.6-17.2); WHITE BLOOD COUNT 8.5 TH/MM3 (4.0-11.0)
[2017-05-27] MEDS ORDERED: RESP: ALBUTEROL 2.5 MG/IPRATROPIUM 0.5 MG NEB (SCH) NEB ONE (22:00)
[2017-05-27] MEDS: FAMOTIDINE 20 MG/2 ML VIAL IV PUSH SCH (22:22)
[2017-05-27 22:26] LABS: ALBUMIN 2.9 GM/DL (3.4-5.0); ALT (GPT) 94 U/L (12-78); AST (GOT) 137 U/L (15-37); BICARBONATE 26.6 MEQ/L (21.0-32.0); BLOOD UREA NITROGEN 18 MG/DL (7-18); CALCIUM 7.5 MG/DL (8.5-10.1); CHLORIDE 100 MEQ/L (98-107); CREATININE 1.03 MG/DL (0.60-1.30); GLOMERULAR FILTRATION RATE 72 ML/MIN (>89); GLUCOSE,RANDOM 157 MG/DL (74-106); MAGNESIUM 1.5 MG/DL (1.5-2.5); SODIUM (NA) 134 MEQ/L (136-145)
[2017-05-27 22:31] LABS: BANDS 29 % (0-6); LYMPHOCYTES 16 % (9-44); MONOCYTES 3 % (0-8); NEUTROPHIL # MANUAL DIFF 6.8 TH/MM3 (1.8-7.7); POLYS (SEG NEUTROPHILS) 51 % (16-70)
[2017-05-27 22:32] LABS: DOHLE BODIES PRESENT (NONE SEEN)
[2017-05-27 22:36] LABS: ALKALINE PHOSPHATASE 125 U/L (45-117); PHOSPHORUS 4.3 MG/DL (2.5-4.9); TOTAL BILIRUBIN ADULT 0.9 MG/DL (0.2-1.0); TOTAL PROTEIN 6.3 GM/DL (6.4-8.2); TROPONIN I 0.19 NG/ML (0.02-0.05)
[2017-05-27 22:53] LABS: CORTISOL 62.1 MCG/DL
[2017-05-27] MEDS: VANCOMYCIN 1,000 MG/NS 250 ML IV SCH ×2 (23:28)
[2017-05-27] MEDS: PROPOFOL 1000 MG/100 ML INJ 100 ML IV PRN (23:43)
[2017-05-28] VITALS (20 sets, daily range): BP systolic 94–137; BP diastolic 63–86; PULSE 84–138; RESP 16–19; TEMP 97.9–99.3; O2SAT 95–100
[2017-05-28] MEDS: RESP: ALBUTEROL 2.5 MG/IPRATROPIUM 0.5 MG NEB (SCH) INH ×6 (00:06→20:39)
[2017-05-28 03:31] LABS: AUTOMATED NEUTROPHIL # 3.3 TH/MM3 (1.8-7.7); BASOPHIL % 0.2 % (0.0-2.0); EOSINOPHIL % 0.1 % (0.0-4.0); HEMATOCRIT 29.6 % (39.0-51.0); LYMPH % 14.7 % (9.0-44.0); LYMPHOCYTE # 0.6 TH/MM3 (1.0-4.8); MEAN CELL VOLUME 90.6 FL (80.0-100.0); MEAN CORPUSCULAR HEMOGLOBIN 30.6 PG (27.0-34.0); MEAN CORPUSCULAR HGB CONC 33.7 % (32.0-36.0); MEAN PLATELET VOLUME 8.4 FL (7.0-11.0); MONO % 7.8 % (0.0-8.0); MONOCYTE # 0.3 TH/MM3 (0-0.9); NEUT % 77.2 % (16.0-70.0); PLATELET COUNT 126 TH/MM3 (150-450); RED BLOOD COUNT 3.26 MIL/MM3 (4.50-5.90); RED CELL DISTRIBUTION WIDTH 15.3 % (11.6-17.2); WHITE BLOOD COUNT 4.3 TH/MM3 (4.0-11.0)
[2017-05-28] MEDS: CHLORHEXIDINE GLUCONATE 2 % 1 PACK (2 CLOTHS) TOP SCH (04:00)
[2017-05-28] MEDS: SODIUM CHLOR 0.9% 1000 ML INJ 1,000 ML IV SCH (04:09)
[2017-05-28 04:13] LABS: ALBUMIN 2.6 GM/DL (3.4-5.0); BICARBONATE 25.1 MEQ/L (21.0-32.0); CALCIUM 7.5 MG/DL (8.5-10.1); CREATININE 1.06 MG/DL (0.60-1.30); DIRECT BILIRUBIN ADULT 0.5 MG/DL (0.0-0.2)
[2017-05-28 04:14] LABS: TROPONIN I 0.64 NG/ML (0.02-0.05)
[2017-05-28 04:15] LABS: INDIRECT BILIRUBIN 0.3 MG/DL (0.0-0.8); TOTAL BILIRUBIN ADULT 0.8 MG/DL (0.2-1.0); TOTAL PROTEIN 5.7 GM/DL (6.4-8.2)
[2017-05-28] MEDS ORDERED: ASPIRIN 300 MG SUPP RECTAL ONE (04:45)
[2017-05-28] MEDS: LEVOTHYROXINE SODIUM 50 MCG TAB PO SCH (06:00)
[2017-05-28] MEDS: PIPERACIL-TAZO 4.5 GM PREMIX 100 ML IV SCH ×4 (06:01→20:11)
[2017-05-28] MEDS: HEPARIN SODIUM - SQ 10,000 UNITS/ML VIAL SQ SCH ×3 (06:01→20:11)
[2017-05-28] MEDS: DEXT 5%-NACL 0.45% 1000 ML INJ 1,000 ML IV SCH ×4 (06:02→23:06)
[2017-05-28] MEDS: amLODIPine BESYLATE 5 MG TAB PO SCH (09:00)
[2017-05-28] MEDS: FERROUS SULFATE 300 MG /5ML UDC PO SCH (09:00)
[2017-05-28] MEDS: DORZOLAMIDE 2% OPTH SOLN 200 DROP/10 ML BTLO LEFT EYE SCH ×3 (09:00→16:34)
[2017-05-28] MEDS ORDERED: METHYLPHENIDATE 20 MG PO SCH ×2 (09:00)
[2017-05-28] MEDS: CARBIDOPA/LEVODOPA 25 MG/100 MG TAB PO SCH ×2 (09:00→19:56)
[2017-05-28] MEDS: CHLORHEXIDINE 0.12% (ORAL KIT) 15 ML CUP MT SCH ×2 (09:23→19:56)
[2017-05-28] MEDS: PROPOFOL 1000 MG/100 ML INJ 100 ML IV PRN ×2 (09:23→20:11)
[2017-05-28] MEDS: VANCOMYCIN 1,000 MG/NS 250 ML IV SCH ×4 (09:24→23:00)
[2017-05-28] MEDS: FAMOTIDINE 20 MG/2 ML VIAL IV PUSH SCH ×2 (09:25→20:11)
[2017-05-28] MEDS: LEVOFLOXACIN 750 MG PREMIX INJ 150 ML IV SCH (09:25)
[2017-05-28 09:27] LABS: TROPONIN I 0.46 NG/ML (0.02-0.05)
[2017-05-28] MEDS ORDERED: SODIUM CHLOR 0.9% 1000 ML INJ 1,000 ML IV ONE ×2 (09:30)
[2017-05-28] MEDS: DILTIAZEM INJ 125 MG in SODIUM CHLORIDE 0.9% INJ 100 ML IV PRN ×2 (10:28→23:20)
--- NOTE | 2017-05-28 14:28 | HHI.CCPN ---
Subjective Remarks/Hospital Course 71-year-old male with past medical history of Parkinson's disease and recurrent pneumonia. 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 His chest x-ray showed bibasilar infiltrates. He had a normal white blood cell count. He received Rocephin, azithromycin, Zosyn, vancomycin in the emergency department. He was admitted to the hospitalist service and placed on Zosyn, vancomycin, Levaquin. He was on 3 L nasal cannula with sats 96-98%. Tonight he was eating chicken and mashed potatoes and had a choking episode. While choking he vomited. He became cyanotic and sats were in the 70s. Large amounts of food were suctioned from his oropharynx by the respiratory therapist and [facility] nurse. Sats remained in the 70s. I intubated patient and he was transferred to CVICU where he underwent diagnostic and therapeutic bronchoscopy SUBJ 05/28/17: Patient remains intubated sedated. Developed Afib with RVR. I have ordered to start Cardizem infusion. Chest x-ray yesterday showed bilateral significant infiltrates Objective Vital Signs Date Time Temp Pulse Resp B/P (MAP) Pulse Ox O2 Delivery O2 Flow Rate FiO2 05/28/17 11:19 100 45 05/28/17 10:34 138 136/92 05/28/17 08:00 97.9 16 05/27/17 15:42 Aerosol Mask 05/27/17 12:05 3.00 Intake and Output 05/28/17 05/28/17 05/29/17 08:00 16:00 00:00 Intake Total 372 ml Output Total 450 ml Balance -78 ml Result Diagram: 05/28/17 0322 05/28/17 0322 Other Results Microbiology Date/Time Source Procedure Growth Status 05/27/17 07:35 Urine Clean Catch Legionella Antigen - Final PRESUMPTIVE NEGATIVE FOR LEGIONELLA P... Complete 05/27/17 07:35 Urine Clean Catch Streptococcus pneumoniae Antigen (M - Final PRESUMPTIVE NEGATIVE FOR STREPTOCOCCU... Complete Laboratory Tests Test 05/27/17 20:14 05/27/17 21:17 05/27/17 23:25 05/28/17 05:46 Blood Gas Puncture Site LT BRACHIAL RT RADIAL RT RADIAL RT RADIAL Blood Gas Patient Temperature 98.6 98.6 98.6 98.6 Blood Gas HCO3 25 mmol/L (22-26) 25 mmol/L (22-26) 24 mmol/L (22-26) 20 mmol/L (22-26) Blood Gas Base Excess -5.4 mmol/L (-2-2) -4.6 mmol/L (-2-2) -3.8 mmol/L (-2-2) -4.4 mmol/L (-2-2) Blood Gas Oxygen Saturation 95 % (90-100) 96 % (90-100) 94 % (90-100) 95 % ( 90-100) Arterial Blood pH 6.99 (7.380-7.420) 7.06 (7.380-7.420) 7.18 (7.380-7.420) 7.39 (7.380-7.420) Arterial Blood Partial Pressure CO2 109 mmHg (38-42) 91 mmHg (38-42) 66 mmHg (38-42) 34 mmHg (38-42) Arterial Blood Partial Pressure O2 146 mmHg (61-120) 240 mmHg (61-120) 90 mmHg (61-120) 78 mmHg (61-120) Arterial Blood Oxygen Content 15.7 Vol % (12.0-20.0) 16.4 Vol % (12.0-20.0) 14.6 Vol % (12.0-20.0) 13.3 Vol % (12.0-20.0) Arterial Blood Carboxyhemoglobin 0.0 % (0-4) 0.1 % (0-4) 0.3 % (0-4) 0.9 % (0-4) Arterial Blood Methemoglobin 1.7 % (0-2) 1.7 % (0-2) 1.4 % (0-2) 1.1 % (0-2) Blood Gas Hemoglobin 11.6 G/DL (12.0-16.0) 11.7 G/DL (12.0-16.0) 11.0 G/DL (12.0-16.0) 9.9 G/DL (12.0-16.0) Oxygen Delivery Device VENTILATOR VENTILATOR VENTILATOR VENTILATOR Blood Gas Ventilator Setting SEE COMMENT SEE COMMENT SEE COMMENT SEE COMMENTS Blood Gas Inspired Oxygen 100 % 100 % 80 % 45 % Objective Remarks GENERAL: Well-developed, chronically ill-appearing male who is laying in ICU bed, intubated sedated SKIN: Warm and dry. HEAD: Atraumatic. Normocephalic. EYES: Pupils 2 mm and sluggishly reactive bilaterally. ENT: Orotracheally intubated NECK: Trachea midline. Jugular veins flat. CARDIOVASCULAR: Tachycardic, atrial fibrillation with RVR. No murmurs rubs or gallops. RESPIRATORY: Distant breath sounds bilaterally with rhonchi. GASTROINTESTINAL: Abdomen soft, non-tender, nondistended. Hepatic and splenic margins not palpable. MUSCULOSKELETAL: Extremities without clubbing, cyanosis. Trace pedal edema. NEUROLOGICAL: On lightening sedation opens eyes follows some commands A/P Problem List: (1) Left bundle branch block ICD Code: I44.7 - Left bundle-branch block, unspecified Status: Chronic (2) Hypertension ICD Code: I10 - Hypertension Status: Chronic (3) Acute respiratory failure with hypoxia ICD Code: J96.01 - Acute respiratory failure with hypoxia Status: Acute (4) Choking due to food in larynx ICD Code: T17.320A - Food in larynx causing asphyxiation, initial encounter Status: Acute Assessment and Plan NEURO: Parkinson's disease Anxiety Propofol for sedation, Fentanyl for analgosedation Start daily sedation medication Target RASS -2 OPHTHO: Glaucoma Continue trusopt RESP: Choking with aspiration into airway Acute respiratory failure Aspiration pneumonia Acute respiratory acidemia on ABG postintubation. On PC/AC to achieve oxygenation and ventilation. PEEP 10 Ventilator Bundle DuoNeb every 4 hours. Daily sedation vacation and spontaneous breathing trial in 24 hours. CXR bilateral opacities CV: Atrial fibrillation with RVR left bundle branch block Hypertension Start Cardizem infusion to target heart rate less than 110 Hold Norvasc 2.5 daily Hydralazine as needed for systolic blood pressure greater than 160 s/p NS 1 L bolus and 0.9 NaCl at 125 L per hour GI: Speech therapy to evaluate swallow when extubated. NPO FEN/RENAL: Insert Corona. Monitor intake and output. Monitor electrolytes. Replace electrolytes as indicated per ICU electrolyte replacement protocol. ID: Aspiration pneumonia Continue Zosyn, vancomycin, Levaquin initiated 05/27. Follow-up results of bronchial washing 05/27/17 Follow up blood culture from 05/27/17. Urine Legionella and pneumococcal antigen negative. HEME: Iron deficiency anemia Ferrous sulfate 300 mg per OG daily ENDO: Hypothyroidism Obtained TSH--> normal. Synthroid 50 mcg po daily PROPH: SCDs/continue heparin 5000 units subcutaneous every 8 hours for DVT prophylaxis. Famotidine 20 mg IV every 12 hours for stress ulcer prophylaxis. ACCESS: PIV providing adequate access at this time Full code Dr. Trivedi after this event but there was no answer. I was informed she left the hospital and was escorted out by CIC nurse. Critical care time 32 minutes exclusive of separately billable procedures. Patient remains critically ill with severe aspiration pneumonia and high ventilator settings. Developed atrial fibrillation with RVR most likely secondary to pneumonia. Cardizem started monitor closely for improvement. Continue broad-spectrum antibiotic Bryan Marroquin MD May 28, 2017 14:28
[2017-05-28] MEDS ORDERED: PHARMACY ORDERED LAB ONE (22:45)
[2017-05-29] VITALS (17 sets, daily range): BP systolic 116–145; BP diastolic 62–85; PULSE 84–147; RESP 12–31; TEMP 98.8–99.8; O2SAT 97–100
--- NOTE | 2017-05-29 00:23 | EKG ---
Date Performed: 05/27/2017 Time Performed: 19:35:44 PTAGE: 71 years EKG: Probable ventricular tachycardia. Abnormal ECG PREVIOUS TRACING : 05/27/2017 08.30 DOCTOR: Aicha Gonzalez Interpretating Date/Time 05/29/2017 00:11:55
[2017-05-29] MEDS: RESP: ALBUTEROL 2.5 MG/IPRATROPIUM 0.5 MG NEB (SCH) INH ×6 (00:45→20:28)
[2017-05-29 03:11] LABS: AUTOMATED NEUTROPHIL # 4.2 TH/MM3 (1.8-7.7); BASOPHIL % 0.7 % (0.0-2.0); EOSINOPHIL # 0.1 TH/MM3 (0-0.4); EOSINOPHIL % 1.5 % (0.0-4.0); HEMATOCRIT 28.5 % (39.0-51.0); HEMOGLOBIN 9.8 GM/DL (13.0-17.0); MEAN CELL VOLUME 89.7 FL (80.0-100.0); MEAN CORPUSCULAR HEMOGLOBIN 30.7 PG (27.0-34.0); MEAN CORPUSCULAR HGB CONC 34.3 % (32.0-36.0); MEAN PLATELET VOLUME 9.2 FL (7.0-11.0); MONO % 7.8 % (0.0-8.0); MONOCYTE # 0.4 TH/MM3 (0-0.9); PLATELET COUNT 128 TH/MM3 (150-450); RED BLOOD COUNT 3.18 MIL/MM3 (4.50-5.90); RED CELL DISTRIBUTION WIDTH 15.1 % (11.6-17.2); WHITE BLOOD COUNT 5.7 TH/MM3 (4.0-11.0)
[2017-05-29] MEDS: PROPOFOL 1000 MG/100 ML INJ 100 ML IV PRN (03:19)
[2017-05-29] MEDS: PIPERACIL-TAZO 4.5 GM PREMIX 100 ML IV SCH ×4 (03:20→20:45)
[2017-05-29] MEDS: CHLORHEXIDINE GLUCONATE 2 % 1 PACK (2 CLOTHS) TOP SCH (03:20)
[2017-05-29] MEDS: HEPARIN SODIUM - SQ 10,000 UNITS/ML VIAL SQ SCH ×3 (03:21→20:41)
--- NOTE | 2017-05-29 04:31 | RADRPT ---
EXAM DATE/TIME: 05/29/2017 03:02 [facility] COMPARISON: CHEST SINGLE AP, May 27, 2017, 19:33. INDICATIONS : Short of breath. MEDICAL HISTORY : Hypertension. Cardiovascular disease. Seizures. Gastroesophageal reflux disease. SURGICAL HISTORY : Appendectomy. Vasectomy ENCOUNTER: Subsequent ACUITY: 2 days PAIN SCORE: 0/10 LOCATION: Bilateral chest FINDINGS: A single view of the chest demonstrates minimal bibasilar densities, slightly improved. Endotracheal tube unchanged. Nasogastric tube with tip in stomach. Osseous structures are intact. CONCLUSION: Improving bibasilar densities. Miguelito Brooke MD on May 29, 2017 at 4:29 Board Certified Radiologist. This report was verified electronically.
[2017-05-29] MEDS: LEVOTHYROXINE SODIUM 50 MCG TAB PO SCH (04:35)
[2017-05-29] MEDS: DEXT 5%-NACL 0.45% 1000 ML INJ 1,000 ML IV SCH (04:35)
[2017-05-29 06:38] LABS: ALBUMIN 2.5 GM/DL (3.4-5.0); ALKALINE PHOSPHATASE 107 U/L (45-117); ALT (GPT) 78 U/L (12-78); AST (GOT) 42 U/L (15-37); BICARBONATE 24.2 MEQ/L (21.0-32.0); BLOOD UREA NITROGEN 10 MG/DL (7-18); CALCIUM 8.4 MG/DL (8.5-10.1); CHLORIDE 110 MEQ/L (98-107); CREATININE 0.98 MG/DL (0.60-1.30); GLOMERULAR FILTRATION RATE 76 ML/MIN (>89); GLUCOSE,RANDOM 117 MG/DL (74-106); MAGNESIUM 1.8 MG/DL (1.5-2.5); SODIUM (NA) 142 MEQ/L (136-145); TOTAL BILIRUBIN ADULT 0.5 MG/DL (0.2-1.0); TOTAL PROTEIN 6.1 GM/DL (6.4-8.2)
[2017-05-29] MEDS: DORZOLAMIDE 2% OPTH SOLN 200 DROP/10 ML BTLO LEFT EYE SCH ×3 (08:50→17:55)
[2017-05-29] MEDS: FERROUS SULFATE 300 MG /5ML UDC PO SCH (08:50)
[2017-05-29] MEDS: amLODIPine BESYLATE 5 MG TAB PO SCH (08:51)
[2017-05-29] MEDS: FAMOTIDINE 20 MG/2 ML VIAL IV PUSH SCH (08:52)
[2017-05-29] MEDS: CARBIDOPA/LEVODOPA 25 MG/100 MG TAB PO SCH ×2 (08:53→20:41)
[2017-05-29] MEDS: CHLORHEXIDINE 0.12% (ORAL KIT) 15 ML CUP MT SCH ×2 (08:53→19:33)
--- NOTE | 2017-05-29 09:22 | HHI.CCPN ---
Subjective Remarks/Hospital Course 71-year-old male with past medical history of Parkinson's disease and recurrent pneumonia. 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 His chest x-ray showed bibasilar infiltrates. He had a normal white blood cell count. He received Rocephin, azithromycin, Zosyn, vancomycin in the emergency department. He was admitted to the hospitalist service and placed on Zosyn, vancomycin, Levaquin. He was on 3 L nasal cannula with sats 96-98%. Tonight he was eating chicken and mashed potatoes and had a choking episode. While choking he vomited. He became cyanotic and sats were in the 70s. Large amounts of food were suctioned from his oropharynx by the respiratory therapist and [facility] nurse. Sats remained in the 70s. I intubated patient and he was transferred to CVICU where he underwent diagnostic and therapeutic bronchoscopy SUBJ 05/28/17: Patient remains intubated sedated. Developed Afib with RVR. I have ordered to start Cardizem infusion. Chest x-ray yesterday showed bilateral significant infiltrates Objective Vital Signs Date Time Temp Pulse Resp B/P (MAP) Pulse Ox O2 Delivery O2 Flow Rate FiO2 05/29/17 08:16 100 40 05/29/17 06:00 93 05/29/17 04:00 99.2 12 116/62 (80) 05/27/17 15:42 Aerosol Mask 05/27/17 12:05 3.00 Intake and Output 05/29/17 05/29/17 05/30/17 08:00 16:00 00:00 Intake Total 1450 ml Output Total 1800 ml Balance -350 ml Result Diagram: 05/29/17 0252 05/29/17 0544 Other Results Microbiology Date/Time Source Procedure Growth Status 05/27/17 20:00 Bronchial Washings Other Gram Stain - Final Complete 05/27/17 20:00 Bronchial Culture - Final Escherichia Coli Complete 05/27/17 07:35 Urine Clean Catch Legionella Antigen - Final PRESUMPTIVE NEGATIVE FOR LEGIONELLA P... Complete 05/27/17 07:35 Urine Clean Catch Streptococcus pneumoniae Antigen (M - Final PRESUMPTIVE NEGATIVE FOR STREPTOCOCCU... Complete Objective Remarks GENERAL: Well-developed, chronically ill-appearing male who is laying in ICU bed, intubated sedated SKIN: Warm and dry. HEAD: Atraumatic. Normocephalic. EYES: Pupils 2 mm and sluggishly reactive bilaterally. ENT: Orotracheally intubated NECK: Trachea midline. Jugular veins flat. CARDIOVASCULAR: Tachycardic, atrial fibrillation with RVR. No murmurs rubs or gallops. RESPIRATORY: Distant breath sounds bilaterally with rhonchi. GASTROINTESTINAL: Abdomen soft, non-tender, nondistended. Hepatic and splenic margins not palpable. MUSCULOSKELETAL: Extremities without clubbing, cyanosis. Trace pedal edema. NEUROLOGICAL: On lightening sedation opens eyes follows some commands A/P Problem List: (1) Left bundle branch block ICD Code: I44.7 - Left bundle-branch block, unspecified Status: Chronic (2) Hypertension ICD Code: I10 - Hypertension Status: Chronic (3) Acute respiratory failure with hypoxia ICD Code: J96.01 - Acute respiratory failure with hypoxia Status: Acute (4) Choking due to food in larynx ICD Code: T17.320A - Food in larynx causing asphyxiation, initial encounter Status: Acute Assessment and Plan NEURO: Parkinson's disease Anxiety Propofol for sedation, Fentanyl for analgosedation Start daily sedation medication Target RASS -2 OPHTHO: Glaucoma Continue trusopt RESP: Choking with aspiration into airway Acute respiratory failure Aspiration pneumonia Acute respiratory acidemia on ABG postintubation. On PC/AC to achieve oxygenation and ventilation. PEEP 10 Ventilator Bundle DuoNeb every 4 hours. Daily sedation vacation and spontaneous breathing trial in 24 hours. CXR bilateral opacities CV: Atrial fibrillation with RVR left bundle branch block Hypertension Start Cardizem infusion to target heart rate less than 110 Hold Norvasc 2.5 daily Hydralazine as needed for systolic blood pressure greater than 160 s/p NS 1 L bolus and 0.9 NaCl at 125 L per hour GI: Speech therapy to evaluate swallow when extubated. NPO FEN/RENAL: Insert Corona. Monitor intake and output. Monitor electrolytes. Replace electrolytes as indicated per ICU electrolyte replacement protocol. ID: Aspiration pneumonia Continue Zosyn, vancomycin, Levaquin initiated 05/27. Follow-up results of bronchial washing 05/27/17 Follow up blood culture from 3/25/18. Urine Legionella and pneumococcal antigen negative. HEME: Iron deficiency anemia Ferrous sulfate 300 mg per OG daily ENDO: Hypothyroidism Obtained TSH--> normal. Synthroid 50 mcg po daily PROPH: SCDs/continue heparin 5000 units subcutaneous every 8 hours for DVT prophylaxis. Famotidine 20 mg IV every 12 hours for stress ulcer prophylaxis. ACCESS: PIV providing adequate access at this time Full code Dr. Trivedi after this event but there was no answer. I was informed she left the hospital and was escorted out by [facility]IC nurse. Critical care time 32 minutes exclusive of separately billable procedures. Patient remains critically ill with severe aspiration pneumonia and high ventilator settings. Developed atrial fibrillation with RVR most likely secondary to pneumonia. Cardizem started monitor closely for improvement. Continue broad-spectrum antibiotic Bryan Marroquin MD May 29, 2017 09:22
--- NOTE | 2017-05-29 09:29 | HHI.CCPN ---
Subjective Remarks/Hospital Course 71-year-old male with past medical history of Parkinson's disease and recurrent pneumonia. 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 His chest x-ray showed bibasilar infiltrates. He had a normal white blood cell count. He received Rocephin, azithromycin, Zosyn, vancomycin in the emergency department. He was admitted to the hospitalist service and placed on Zosyn, vancomycin, Levaquin. He was on 3 L nasal cannula with sats 96-98%. Tonight he was eating chicken and mashed potatoes and had a choking episode. While choking he vomited. He became cyanotic and sats were in the 70s. Large amounts of food were suctioned from his oropharynx by the respiratory therapist and [facility] nurse. Sats remained in the 70s. I intubated patient and he was transferred to CVICU where he underwent diagnostic and therapeutic bronchoscopy SUBJ 05/28/17: Patient remains intubated sedated. Developed Afib with RVR. I have ordered to start Cardizem infusion. Chest x-ray yesterday showed bilateral significant infiltrates 05/29/17: More awake alert today tolerating CPAP. Rate controlled. Chest x-ray shows bibasilar infiltrates but shows good improvement. Objective Vital Signs Date Time Temp Pulse Resp B/P (MAP) Pulse Ox O2 Delivery O2 Flow Rate FiO2 05/29/17 08:16 100 40 05/29/17 06:00 93 05/29/17 04:00 99.2 12 116/62 (80) 05/27/17 15:42 Aerosol Mask 05/27/17 12:05 3.00 Intake and Output 05/29/17 05/29/17 05/30/17 08:00 16:00 00:00 Intake Total 1450 ml Output Total 1800 ml Balance -350 ml Result Diagram: 05/29/17 0252 05/29/17 0544 Other Results Microbiology Date/Time Source Procedure Growth Status 05/27/17 20:00 Bronchial Washings Other Gram Stain - Final Complete 05/27/17 20:00 Bronchial Culture - Final Escherichia Coli Complete 05/27/17 07:35 Urine Clean Catch Legionella Antigen - Final PRESUMPTIVE NEGATIVE FOR LEGIONELLA P... Complete 05/27/17 07:35 Urine Clean Catch Streptococcus pneumoniae Antigen (M - Final PRESUMPTIVE NEGATIVE FOR STREPTOCOCCU... Complete Objective Remarks GENERAL: Well-developed, chronically ill-appearing male who is laying in ICU bed, intubated awake SKIN: Warm and dry. HEAD: Atraumatic. Normocephalic. EYES: Pupils 2 mm and reactive bilaterally. ENT: Orotracheally intubated NECK: Trachea midline. Jugular veins flat. CARDIOVASCULAR: NSR. No murmurs rubs or gallops. RESPIRATORY: Distant breath sounds bilaterally with mild rhonchi. GASTROINTESTINAL: Abdomen soft, non-tender, nondistended. Hepatic and splenic margins not palpable. MUSCULOSKELETAL: Extremities without clubbing, cyanosis. Trace pedal edema. NEUROLOGICAL: Alert, awake. Following commands. No focal deficits A/P Problem List: (1) Acute respiratory failure with hypoxia ICD Code: J96.01 - Acute respiratory failure with hypoxia Status: Acute (2) Left bundle branch block ICD Code: I44.7 - Left bundle-branch block, unspecified Status: Chronic (3) Hypertension ICD Code: I10 - Hypertension Status: Chronic (4) Choking due to food in larynx ICD Code: T17.320A - Food in larynx causing asphyxiation, initial encounter Status: Acute Assessment and Plan NEURO: Parkinson's disease Anxiety Propofol for sedation, Fentanyl for analgosedation Hold sedation medication for weaning trial OPHTHO: Glaucoma Continue trusopt RESP: Choking with aspiration into airway Acute respiratory failure Aspiration pneumonia/EColi Acute respiratory acidemia on ABG postintubation. Continue vent support. Start CPAP trial with possible extubation Ventilator Bundle. DuoNeb every 4 hours. Spontaneous breathing trial with possible extubation CXR bilateral opacities CV: Atrial fibrillation with RVR -now NSR left bundle branch block Hypertension Start to wean Cardizem infusion Hold Norvasc 2.5 daily Hydralazine as needed for systolic blood pressure greater than 160 s/p NS 1 L bolus and 0.9 NaCl at 125 L per hour-change to KVO GI: Speech therapy to evaluate swallow when extubated. NPO FEN/RENAL: Corona. Monitor intake and output. Monitor electrolytes. Replace electrolytes as indicated per ICU electrolyte replacement protocol. ID: Aspiration pneumonia/E Coli Continue Zosyn, vancomycin, Levaquin initiated 05/27. DC Vanc Follow-up results of bronchial washing 3/25/18-growing E. coli Follow up blood culture from 05/27/17. Urine Legionella and pneumococcal antigen negative. HEME: Iron deficiency anemia Ferrous sulfate 300 mg per OG daily ENDO: Hypothyroidism Obtained TSH--> normal. Synthroid 50 mcg po daily PROPH: SCDs/continue heparin 5000 units subcutaneous every 8 hours for DVT prophylaxis. Famotidine 20 mg IV every 12 hours for stress ulcer prophylaxis. ACCESS: PIV providing adequate access at this time Full code Dr. Trivedi after this event but there was no answer. I was informed she left the hospital and was escorted out by [facility] nurse. I updated at bedside 05/28/17 Level 3 Patient remains critically ill with severe aspiration pneumonia now improving. Developed atrial fibrillation with RVR most likely secondary to pneumonia, no NSR. Bryan Marroquin MD May 29, 2017 09:29
[2017-05-29] MEDS ORDERED: PHARMACY ORDERED LAB ONE (10:45)
[2017-05-29] MEDS: LEVOFLOXACIN 750 MG PREMIX INJ 150 ML IV SCH (11:29)
[2017-05-29] MEDS ORDERED: ACETAMINOPHEN 1000 MG/100 ML 65 ML IV ONE (12:00)
[2017-05-29] MEDS: DILTIAZEM INJ 125 MG in SODIUM CHLORIDE 0.9% INJ 100 ML IV PRN ×2 (14:52→23:25)
[2017-05-29] MEDS: MORPHINE SULFATE 2 MG/ML SYRINGE IV PUSH PRN ×2 (14:53→20:42)
[2017-05-29] MEDS: FAMOTIDINE 20 MG TAB PO SCH (20:41)
[2017-05-30] VITALS (15 sets, daily range): BP systolic 110–147; BP diastolic 64–81; PULSE 72–147; RESP 17–42; TEMP 97.7–99.1; O2SAT 92–98
[2017-05-30] MEDS: RESP: ALBUTEROL 2.5 MG/IPRATROPIUM 0.5 MG NEB (SCH) INH ×4 (00:12→11:24)
[2017-05-30] MEDS: MORPHINE SULFATE 2 MG/ML SYRINGE IV PUSH PRN ×3 (02:26→16:50)
[2017-05-30] MEDS: CHLORHEXIDINE GLUCONATE 2 % 1 PACK (2 CLOTHS) TOP SCH (03:15)
[2017-05-30] MEDS: HEPARIN SODIUM - SQ 10,000 UNITS/ML VIAL SQ SCH ×3 (04:42→21:20)
[2017-05-30] MEDS: PIPERACIL-TAZO 4.5 GM PREMIX 100 ML IV SCH ×4 (04:42→21:23)
[2017-05-30] MEDS: LEVOTHYROXINE SODIUM 50 MCG TAB PO SCH (04:42)
[2017-05-30] MEDS: DILTIAZEM INJ 125 MG in SODIUM CHLORIDE 0.9% INJ 100 ML IV PRN ×2 (07:45→15:13)
[2017-05-30] MEDS: DORZOLAMIDE 2% OPTH SOLN 200 DROP/10 ML BTLO LEFT EYE SCH ×3 (07:46→16:52)
[2017-05-30] MEDS: CARBIDOPA/LEVODOPA 25 MG/100 MG TAB PO SCH ×2 (07:46→21:00)
[2017-05-30] MEDS: FAMOTIDINE 20 MG TAB PO SCH ×2 (07:46→21:21)
[2017-05-30] MEDS: FERROUS SULFATE 300 MG /5ML UDC PO SCH (07:46)
[2017-05-30] MEDS: amLODIPine BESYLATE 5 MG TAB PO SCH (07:46)
[2017-05-30] MEDS: CHLORHEXIDINE 0.12% (ORAL KIT) 15 ML CUP MT SCH ×2 (07:46→20:00)
[2017-05-30] MEDS ORDERED: METOPROLOL TARTRATE 5 MG/5 ML VIAL ONE ×3 (08:37→09:17)
[2017-05-30] MEDS: POTASSIUM CHLOR 20 MEQ PREMIX 100 ML IV PRN ×2 (09:05→12:48)
[2017-05-30] MEDS: LEVOFLOXACIN 750 MG PREMIX INJ 150 ML IV SCH (09:05)
[2017-05-30] MEDS ORDERED: DILTIAZEM HCL 50 MG/10 ML VIAL IV PUSH ONE (10:15)
[2017-05-30] MEDS ORDERED: MAGNESIUM SULFATE 1 GM PREMIX 100 ML IV ONE (13:00)
[2017-05-30] MEDS ORDERED: DIGOXIN 0.5 MG/2 ML VIAL IV PUSH ONE (13:00)
--- NOTE | 2017-05-30 13:04 | HHI.CCPN ---
Subjective Remarks/Hospital Course 71-year-old male with past medical history of Parkinson's disease and recurrent pneumonia. 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 His chest x-ray showed bibasilar infiltrates. He had a normal white blood cell count. He received Rocephin, azithromycin, Zosyn, vancomycin in the emergency department. He was admitted to the hospitalist service and placed on Zosyn, vancomycin, Levaquin. He was on 3 L nasal cannula with sats 96-98%. Tonight he was eating chicken and mashed potatoes and had a choking episode. While choking he vomited. He became cyanotic and sats were in the 70s. Large amounts of food were suction[facility] from [facility]. Sats remained in the 70s. I intubated patient and he was transferred to CVICU where he underwent diagnostic and therapeutic bronchoscopy SUBJ 05/28/17: Patient remains intubated sedated. Developed Afib with RVR. I have ordered to start Cardizem infusion. Chest x-ray yesterday showed bilateral significant infiltrates 05/29/17: More awake alert today tolerating CPAP. Rate controlled. Chest x-ray shows bibasilar infiltrates but shows good improvement. 05/30/17: Remains n.p.o. MBS pending. Respiratory ho stable. Currently in A. fib flutter with RVR. Received total of metoprolol 10 mg IV. Cardizem infusion increased to 20 mg/h. give digoxin 0.25 mg IV 1 Objective Vital Signs Date Time Temp Pulse Resp B/P (MAP) Pulse Ox O2 Delivery O2 Flow Rate FiO2 05/30/17 10:05 21 05/30/17 07:45 98 148/87 05/30/17 07:36 96 Nasal Cannula 2.00 05/30/17 04:00 99.0 05/29/17 08:16 40 Intake and Output 05/30/17 05/30/17 05/31/17 08:00 16:00 00:00 Intake Total 100 ml Output Total 2800 ml Balance -2700 ml Result Diagram: 05/29/17 0252 05/29/17 0544 Other Results Microbiology Date/Time Source Procedure Growth Status 05/27/17 20:00 Bronchial Washings Other Gram Stain - Final Complete 05/27/17 20:00 Bronchial Culture - Final Escherichia Coli Complete Objective Remarks GENERAL: Well-developed, chronically ill-appearing male who is laying in ICU bed, no acute distress SKIN: Warm and dry. HEAD: Atraumatic. Normocephalic. EYES: Pupils 2 mm and reactive bilaterally. ENT: Airway patent NECK: Trachea midline. Jugular veins flat. CARDIOVASCULAR: Atrial fibrillation/flutter with RVR. No murmurs rubs or gallops. RESPIRATORY: Air entry equal bilaterally no wheezes or crackles GASTROINTESTINAL: Abdomen soft, non-tender, nondistended. Hepatic and splenic margins not palpable. MUSCULOSKELETAL: Extremities without clubbing, cyanosis. Trace pedal edema. NEUROLOGICAL: Alert, awake. Following commands. No focal deficits A/P Problem List: (1) Acute respiratory failure with hypoxia ICD Code: J96.01 - Acute respiratory failure with hypoxia Status: Acute (2) Atrial fibrillation with RVR ICD Code: I48.91 - Unspecified atrial fibrillation (3) Left bundle branch block ICD Code: I44.7 - Left bundle-branch block, unspecified Status: Chronic (4) Hypertension ICD Code: I10 - Hypertension Status: Chronic (5) Choking due to food in larynx ICD Code: T17.320A - Food in larynx causing asphyxiation, initial encounter Status: Acute Assessment and Plan NEURO: Parkinson's disease Anxiety All sedation discontinued Resume Sinemet OPHTHO: Glaucoma Continue trusopt RESP: Choking with aspiration into airway Acute respiratory failure Aspiration pneumonia/EColi Acute respiratory acidemia on ABG postintubation. Extubated yesterday tolerating well DuoNeb every 4 hours.-Change to as needed CXR bilateral opacities-improving. E Coli in sputum CV: Atrial fibrillation with RVR -now NSR left bundle branch block Hypertension Continue Cardizem infusion, max dose 20 mg Add metoprolol 25 mg twice daily. Received metoprolol 5 mg IV 2 Digoxin 0.25 mg 1. Start amiodarone infusion if rate not controlled Hold Norvasc 2.5 daily Hydralazine/Labetalol as needed for systolic blood pressure greater than 160 IV to KVO GI: Speech therapy to evaluate swallow when extubated. MBS today. Diet per recommendation FEN/RENAL: Corona. Monitor intake and output. Monitor electrolytes. Replace electrolytes as indicated per ICU electrolyte replacement protocol. ID: Aspiration pneumonia/E Coli On Zosyn,Levaquin initiated 05/27. DCd Vanc 05/29, DC Zosyn today Follow-up results of bronchial washing 05/27/17-growing E. coli Follow up blood culture from 05/27/17. Urine Legionella and pneumococcal antigen negative. HEME: Iron deficiency anemia Ferrous sulfate 300 mg per OG daily ENDO: Hypothyroidism Obtained TSH--> normal. Synthroid 50 mcg po daily PROPH: SCDs/continue heparin 5000 units subcutaneous every 8 hours for DVT prophylaxis. Famotidine 20 mg IV every 12 hours for stress ulcer prophylaxis. ACCESS: PIV providing adequate access at this time Full code I updated at bedside 05/28/17, 05/29/17 Level 3 Patient remains critically ill with aspiration pneumonia now improving, but persistent atrial fibrillation with RVR most likely secondary to pneumonia Bryan Marroquin MD May 30, 2017 13:04
--- NOTE | 2017-05-30 13:05 | RADRPT ---
EXAM DATE/TIME: 05/30/2017 11:47 [facility] COMPARISON: No previous studies available for comparison. INDICATIONS : Dysphagia with aspiration. FLUORO TIME: 1.0 minutes IMAGE COUNT: 1 CONTRAST: Dose as prescribed by speech pathologist. MEDICAL HISTORY : Gastroesophageal reflux disease. Hypertension. Cardiovascular disease. Seizures SURGICAL HISTORY : Appendectomy. ENCOUNTER: Initial ACUITY: >1 year PAIN SCORE: 0/10 LOCATION: Esophagus FINDINGS: A modified barium swallow was performed with speech pathology. Patient was given a variety of liquids to swallow. There is a trace of penetration into the upper airway. For a full detailed report, see report by the speech pathologist. CONCLUSION: Trace of penetration into the upper airway. Daniel Euceda MD on May 30, 2017 at 13:03 Board Certified Radiologist. This report was verified electronically.
[2017-05-30] MEDS ORDERED: ZOLPIDEM TARTRATE 10 MG TAB PO PRN (14:15)
[2017-05-30] MEDS ORDERED: AMIODARONE INJ 150 MG in DEXTROSE 5% IN WATER 100ML INJ 100 ML IV ONE ×2 (16:04)
[2017-05-30] MEDS ORDERED: METOPROLOL TARTRATE 5 MG/5 ML VIAL IV PUSH ONE (16:35)
[2017-05-30] MEDS: METOPROLOL TARTRATE 25 MG TAB PO SCH ×2 (16:40→21:21)
[2017-05-30] MEDS: VALSARTAN 160 MG TAB PO SCH (16:51)
[2017-05-30] MEDS: AMIODARONE INJ 450 MG in SODIUM CHLOR 0.9% (EXCEL) INJ 241 ML IV PRN (17:14)
[2017-05-30] MEDS: clonazePAM 1 MG TAB PO SCH (21:21)
[2017-05-30] MEDS: oxyCODONE/ACETAMINOPHEN 5 MG/325 MG TAB PO PRN (21:39)
[2017-05-30 22:31] LABS: MAGNESIUM 1.9 MG/DL (1.5-2.5)
[2017-05-31] VITALS (19 sets, daily range): BP systolic 100–134; BP diastolic 57–71; PULSE 61–137; RESP 16–27; TEMP 98.3–98.9; O2SAT 91–97
[2017-05-31] MEDS: AMIODARONE INJ 450 MG in SODIUM CHLOR 0.9% (EXCEL) INJ 241 ML IV PRN ×2 (00:53→13:14)
[2017-05-31] MEDS: CHLORHEXIDINE GLUCONATE 2 % 1 PACK (2 CLOTHS) TOP SCH (04:00)
[2017-05-31] MEDS: PIPERACIL-TAZO 4.5 GM PREMIX 100 ML IV SCH ×3 (04:13→14:59)
[2017-05-31] MEDS: HEPARIN SODIUM - SQ 10,000 UNITS/ML VIAL SQ SCH ×3 (04:13→20:27)
[2017-05-31] MEDS: oxyCODONE/ACETAMINOPHEN 5 MG/325 MG TAB PO PRN ×5 (04:14→23:28)
[2017-05-31] MEDS: DILTIAZEM INJ 125 MG in SODIUM CHLORIDE 0.9% INJ 100 ML IV PRN ×4 (04:20→20:43)
--- NOTE | 2017-05-31 04:48 | RADRPT ---
EXAM DATE/TIME: 05/31/2017 03:04 [facility] COMPARISON: CHEST SINGLE AP, May 29, 2017, 3:02. INDICATIONS : Shortness of breath, possible pulmonary disease. MEDICAL HISTORY : Hypertension. Cardiovascular disease. Gastroesophageal reflux disease. Seizures SURGICAL HISTORY : Appendectomy. ENCOUNTER: Subsequent ACUITY: 4 - 6 days PAIN SCORE: Non-responsive. LOCATION: Bilateral chest FINDINGS: A single view of the chest demonstrates better aeration of the lungs with minimal left basilar densit y. Right lung base has cleared. The cardiomediastinal contours are unremarkable. Osseous structures are intact. CONCLUSION: Better aeration of lungs with minimal left basilar density. Right lung base has cleared. Miguelito Brooke MD on May 31, 2017 at 4:46 Board Certified Radiologist. This report was verified electronically.
[2017-05-31 05:37] LABS: AUTOMATED NEUTROPHIL # 6.1 TH/MM3 (1.8-7.7); BASOPHIL # 0.1 TH/MM3 (0-0.2); BASOPHIL % 1.2 % (0.0-2.0); EOSINOPHIL # 0.2 TH/MM3 (0-0.4); EOSINOPHIL % 1.9 % (0.0-4.0); HEMATOCRIT 37.5 % (39.0-51.0); HEMOGLOBIN 12.9 GM/DL (13.0-17.0); LYMPH % 21.4 % (9.0-44.0); MEAN CELL VOLUME 90.1 FL (80.0-100.0); MEAN CORPUSCULAR HEMOGLOBIN 30.9 PG (27.0-34.0); MEAN CORPUSCULAR HGB CONC 34.3 % (32.0-36.0); MEAN PLATELET VOLUME 8.5 FL (7.0-11.0); MONO % 11.7 % (0.0-8.0); MONOCYTE # 1.1 TH/MM3 (0-0.9); NEUT % 63.8 % (16.0-70.0); PLATELET COUNT 296 TH/MM3 (150-450); RED BLOOD COUNT 4.16 MIL/MM3 (4.50-5.90); RED CELL DISTRIBUTION WIDTH 15.4 % (11.6-17.2); WHITE BLOOD COUNT 9.5 TH/MM3 (4.0-11.0)
[2017-05-31] MEDS: METOPROLOL TARTRATE 25 MG TAB PO SCH ×3 (05:45→23:21)
[2017-05-31] MEDS: LEVOTHYROXINE SODIUM 50 MCG TAB PO SCH (05:45)
[2017-05-31 06:07] LABS: ALBUMIN 2.6 GM/DL (3.4-5.0); AST (GOT) 21 U/L (15-37); BICARBONATE 24.1 MEQ/L (21.0-32.0); BLOOD UREA NITROGEN 14 MG/DL (7-18); CALCIUM 8.9 MG/DL (8.5-10.1); CHLORIDE 105 MEQ/L (98-107); GLOMERULAR FILTRATION RATE 74 ML/MIN (>89); GLUCOSE,RANDOM 108 MG/DL (74-106); MAGNESIUM 1.9 MG/DL (1.5-2.5); SODIUM (NA) 140 MEQ/L (136-145)
[2017-05-31 06:11] LABS: ALKALINE PHOSPHATASE 171 U/L (45-117); ALT (GPT) 13 U/L (12-78); PHOSPHORUS 2.9 MG/DL (2.5-4.9); TOTAL BILIRUBIN ADULT 0.8 MG/DL (0.2-1.0); TOTAL PROTEIN 6.6 GM/DL (6.4-8.2)
[2017-05-31] MEDS: CHLORHEXIDINE 0.12% (ORAL KIT) 15 ML CUP MT SCH ×2 (08:00→20:00)
[2017-05-31] MEDS: FERROUS SULFATE 300 MG /5ML UDC PO SCH (08:21)
[2017-05-31] MEDS: DORZOLAMIDE 2% OPTH SOLN 200 DROP/10 ML BTLO LEFT EYE SCH ×3 (08:21→17:38)
[2017-05-31] MEDS: VALSARTAN 160 MG TAB PO SCH (08:22)
[2017-05-31] MEDS: ERGOCALCIFEROL (VIT D2) 50,000 UNIT CAP PO SCH (08:22)
[2017-05-31] MEDS: amLODIPine BESYLATE 5 MG TAB PO SCH (08:22)
[2017-05-31] MEDS: FAMOTIDINE 20 MG TAB PO SCH ×2 (08:23→20:28)
[2017-05-31] MEDS: CARBIDOPA/LEVODOPA 25 MG/100 MG TAB PO SCH ×2 (08:25→20:28)
[2017-05-31] MEDS: LEVOFLOXACIN 750 MG PREMIX INJ 150 ML IV SCH (11:08)
--- NOTE | 2017-05-31 14:03 | EKG ---
Date Performed: 05/30/2017 Time Performed: 08:35:28 PTAGE: 71 years EKG: Atrial flutter with 2:1 conduction Left bundle branch block Abnormal ECG Since PREVIOUS TRACING , no significant change noted PREVIOUS TRACIN05/27/2017 19.35 DOCTOR: Yahir Wilburn Interpretating Date/Time 05/31/2017 14:02:46
[2017-05-31] MEDS: clonazePAM 1 MG TAB PO SCH (20:28)
--- NOTE | 2017-05-31 21:47 | HHI.CCPN ---
Subjective Remarks/Hospital Course 71-year-old male with past medical history of Parkinson's disease and recurrent pneumonia. 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 His chest x-ray showed bibasilar infiltrates. He had a normal white blood cell count. He received Rocephin, azithromycin, Zosyn, vancomycin in the emergency department. He was admitted to the hospitalist service and placed on Zosyn, vancomycin, Levaquin. He was on 3 L nasal cannula with sats 96-98%. Tonight he was eating chicken and mashed potatoes and had a choking episode. While choking he vomited. He became cyanotic and sats were in the 70s. Large amounts of food were suctioned from his oropharynx by the respiratory therapist and [facility] nurse. Sats remained in the 70s. I intubated patient and he was transferred to CVICU where he underwent diagnostic and therapeutic bronchoscopy SUBJ 05/28/17: Patient remains intubated sedated. Developed Afib with RVR. I have ordered to start Cardizem infusion. Chest x-ray yesterday showed bilateral significant infiltrates 05/29/17: More awake alert today tolerating CPAP. Rate controlled. Chest x-ray shows bibasilar infiltrates but shows good improvement. 05/30/17: Remains n.p.o. MBS pending. Respiratory ho stable. Currently in A. fib flutter with RVR. Received total of metoprolol 10 mg IV. Cardizem infusion increased to 20 mg/h. give digoxin 0.25 mg IV 1 05/31: passed swallow eval. now back in NSR. plan on 7 day course levaquin for e.coli aspiration pneumonia. clinically improving. on room air. Objective Vital Signs Date Time Temp Pulse Resp B/P (MAP) Pulse Ox O2 Delivery O2 Flow Rate FiO2 05/31/17 20:43 73 101/61 05/31/17 20:40 18 05/31/17 17:00 91 05/31/17 16:00 98.8 05/31/17 08:24 21 05/30/17 21:22 Nasal Cannula 2.00 Intake and Output 05/31/17 05/31/17 06/01/17 08:00 16:00 00:00 Intake Total 340 ml 250 ml 300 ml Output Total 800 ml 500 ml Balance -460 ml 250 ml -200 ml Result Diagram: 05/31/1733605/31/17336 Objective Remarks GENERAL: Well-developed, chronically ill-appearing male who is laying in ICU bed, no acute distress SKIN: Warm and dry. HEAD: Atraumatic. Normocephalic. EYES: Pupils 2 mm and reactive bilaterally. ENT: Airway patent NECK: Trachea midline. Jugular veins flat. CARDIOVASCULAR: NSR. normal rate, regular rhythm. RESPIRATORY: Air entry equal bilaterally no wheezes or crackles GASTROINTESTINAL: Abdomen soft, non-tender, nondistended. MUSCULOSKELETAL: Extremities without clubbing, cyanosis. Trace pedal edema. NEUROLOGICAL: Alert, awake. Following commands. No focal deficits A/P Problem List: (1) Acute respiratory failure with hypoxia ICD Code: J96.01 - Acute respiratory failure with hypoxia Status: Acute (2) Atrial fibrillation with RVR ICD Code: I48.91 - Unspecified atrial fibrillation (3) Left bundle branch block ICD Code: I44.7 - Left bundle-branch block, unspecified Status: Chronic (4) Hypertension ICD Code: I10 - Hypertension Status: Chronic (5) Choking due to food in larynx ICD Code: T17.320A - Food in larynx causing asphyxiation, initial encounter Status: Acute Assessment and Plan Assessment: 71yM with e.coli aspiration pneumonia and afib now resolved. will transition to PO cardizem and amiodarone. transition out of ICU. complete full 7 day course for pneumonia. consult hospitalist service. NEURO: Parkinson's disease Anxiety All sedation discontinued Resume Sinemet OPHTHO: Glaucoma Continue trusopt RESP: Choking with aspiration into airway- resolved. Acute respiratory failure- resolved. Aspiration pneumonia/EColi DuoNeb every 4 hours.-Change to as needed CXR bilateral opacities-improving. E Coli in sputum CV: Atrial fibrillation with RVR -now NSR left bundle branch block Hypertension change to cardizem 90mg po q6h d/c amio drip and start amio 200mg po q12h. increase metoprolol to 25mg po q6hr. Hold Norvasc 2.5 daily Hydralazine/Labetalol as needed for systolic blood pressure greater than 160 IV to KVO GI: regular diet per speech recs. FEN/RENAL: d/c roberto. Replace electrolytes as indicated per ICU electrolyte replacement protocol. ID: Aspiration pneumonia/E Coli continue levaquin x 7 days (anticipated stop date 06/02) Follow-up results of bronchial washing 05/27/17-growing E. coli Follow up blood culture from 05/27/17. Urine Legionella and pneumococcal antigen negative. HEME: Iron deficiency anemia Ferrous sulfate 300 mg per OG daily ENDO: Hypothyroidism Obtained TSH--> normal. Synthroid 50 mcg po daily PROPH: SCDs/continue heparin 5000 units subcutaneous every 8 hours for DVT prophylaxis. Famotidine 20 mg IV every 12 hours for stress ulcer prophylaxis. ACCESS: PIV providing adequate access at this time iVdal Ha MD May 31, 2017 21:47
[2017-05-31] MEDS: DILTIAZEM HCL 90 MG TAB PO SCH ×2 (22:38→22:45)
[2017-05-31] MEDS: AMIODARONE 200 MG TAB PO SCH (22:42)
[2017-06-01] VITALS (12 sets, daily range): BP systolic 119–136; BP diastolic 59–71; PULSE 78–90; RESP 16–21; TEMP 97.2–98.7; O2SAT 91–94
[2017-06-01] MEDS: CHLORHEXIDINE GLUCONATE 2 % 1 PACK (2 CLOTHS) TOP SCH (04:00)
[2017-06-01] MEDS: HEPARIN SODIUM - SQ 10,000 UNITS/ML VIAL SQ SCH ×3 (04:58→20:33)
[2017-06-01] MEDS: METOPROLOL TARTRATE 25 MG TAB PO SCH ×3 (05:25→17:23)
[2017-06-01] MEDS: DILTIAZEM HCL 90 MG TAB PO SCH ×4 (05:25→17:23)
[2017-06-01] MEDS: LEVOTHYROXINE SODIUM 50 MCG TAB PO SCH (05:25)
[2017-06-01] MEDS: oxyCODONE/ACETAMINOPHEN 5 MG/325 MG TAB PO PRN ×4 (05:32→20:34)
[2017-06-01] MEDS: CHLORHEXIDINE 0.12% (ORAL KIT) 15 ML CUP MT SCH ×2 (08:00→19:42)
[2017-06-01] MEDS: CARBIDOPA/LEVODOPA 25 MG/100 MG TAB PO SCH ×2 (09:00→23:00)
[2017-06-01] MEDS: FAMOTIDINE 20 MG TAB PO SCH ×2 (09:00→20:33)
[2017-06-01] MEDS: DORZOLAMIDE 2% OPTH SOLN 200 DROP/10 ML BTLO LEFT EYE SCH ×3 (09:00→17:24)
[2017-06-01] MEDS: AMIODARONE 200 MG TAB PO SCH ×2 (09:00→20:33)
[2017-06-01] MEDS: ERGOCALCIFEROL (VIT D2) 50,000 UNIT CAP PO SCH (09:01)
[2017-06-01] MEDS: FERROUS SULFATE 300 MG /5ML UDC PO SCH (09:01)
[2017-06-01] MEDS: amLODIPine BESYLATE 5 MG TAB PO SCH (09:02)
[2017-06-01] MEDS: VALSARTAN 160 MG TAB PO SCH (09:03)
[2017-06-01] MEDS: LEVOFLOXACIN 750 MG PREMIX INJ 150 ML IV SCH (11:00)
--- NOTE | 2017-06-01 16:00 | HHI.PR ---
Subjective Remarks Resting in bed comfortably, at the bedside Stated he is breathing okay he still have a moist cough no fever or chills Blood pressure heart rate okay he is on 3 agents Lopressor and amiodarone and Cardizem Objective Vitals Vital Signs Date Time Temp Pulse Resp B/P (MAP) Pulse Ox O2 Delivery O2 Flow Rate FiO2 06/01/17 14:00 86 06/01/17 12:01 16 06/01/17 12:00 80 06/01/17 12:00 98.3 80 18 130/71 (90) 93 06/01/17 10:00 88 06/01/17 09:47 93 06/01/17 08:00 98.4 81 16 122/62 (82) 91 06/01/17 08:00 81 06/01/17 06:00 86 06/01/17 04:00 90 06/01/17 04:00 98.7 90 17 125/67 (86) 92 06/01/17 02:00 83 06/01/17 00:00 90 06/01/17 00:00 98.5 90 18 119/69 (86) 94 05/31/17 22:00 79 05/31/17 20:43 73 101/61 05/31/17 20:00 70 05/31/17 20:00 98.4 70 16 101/61 (74) 94 05/31/17 18:00 65 05/31/17 17:00 65 05/31/17 17:00 65 17 110/61 (77) 91 05/31/17 16:00 98.8 65 18 108/68 (81) 92 05/31/17 16:00 65 I/O 05/31/17 05/31/17 05/31/17 06/01/17 06/01/17 06/01/17 07:00 15:00 23:00 07:00 15:00 23:00 Intake Total 340 ml 150 ml 400 ml 220 ml Output Total 800 ml 500 ml 2200 ml Balance -460 ml 150 ml -100 ml -1980 ml Intake Oral 240 ml 300 ml 220 ml IV Total 100 ml 150 ml 100 ml Output Urine Total 800 ml 500 ml 2200 ml Bladder Scan Volume Amount 808 ml # Bowel Movements 0 0 1 Result Diagram: 05/31/17 0337 05/31/17336 Objective Remarks GENERAL: This is a well-nourished, well-developed patient, in no apparent distress. CARDIOVASCULAR: Regular rate and irregular rhythm without murmurs, gallops, or rubs. RESPIRATORY: Right lung crackles more than the left GASTROINTESTINAL: Abdomen soft, non-tender, nondistended. Normal, active bowel sounds MUSCULOSKELETAL: Extremities without clubbing, cyanosis, or edema. NEURO: Alert & Oriented x4 to person, place, time, situation. Moves all ext x4 A/P Assessment and Plan 71-year-old male with past medical history of Parkinson's disease and recurrent pneumonia. He was brought into 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 His chest x-ray showed bibasilar infiltrates. He had a normal white blood cell count. He received Rocephin, azithromycin, Zosyn, vancomycin in the emergency department. He was admitted to the hospitalist service and placed on Zosyn, vancomycin, Levaquin. He was on 3 L nasal cannula with sats 96-98%. Tonight he was eating chicken and mashed potatoes and had a choking episode. While choking he vomited. He became cyanotic and sats were in the 70s. Large amounts of food were suctioned from his oropharynx by the respiratory therapist and [facility] nurse. Sats remained in the 70s. I intubated patient and he was transferred to CVICU where he underwent diagnostic and therapeutic bronchoscopy SUBJ 05/28/17: Patient remains intubated sedated. Developed Afib with RVR. I have ordered to start Cardizem infusion. Chest x-ray yesterday showed bilateral significant infiltrates 05/29/17: More awake alert today tolerating CPAP. Rate controlled. Chest x-ray shows bibasilar infiltrates but shows good improvement. 05/30/17: Remains n.p.o. MBS pending. Respiratory ho stable. Currently in A. fib flutter with RVR. Received total of metoprolol 10 mg IV. Cardizem infusion increased to 20 mg/h. give digoxin 0.25 mg IV 1 05/31: passed swallow eval. now back in NSR. plan on 7 day course levaquin for e.coli aspiration pneumonia. clinically improving. on room air. 06/01: Doing well breathing okay, at the bedside, will transfer to medical floor continue Levaquin monitor breathing start ambulating, PT OT, wean down oxygen Patient had A. fib continue on Cardizem metoprolol and amiodarone, he is chads score 1 I will do 2D echo to assess for heart failure previous BNP was high if so patient may need to be on anticoagulation, consult cardiology A&P: NEURO: Parkinson's disease Anxiety All sedation discontinued Resume Sinemet OPHTHO: Glaucoma Continue trusopt RESP: Choking with aspiration into airway- resolved. Acute respiratory failure- resolved. Aspiration pneumonia/EColi DuoNeb every 4 hours.-Change to as needed CXR bilateral opacities-improving. E Coli in sputum CV: Atrial fibrillation with RVR -now NSR left bundle branch block Hypertension change to cardizem 90mg po q6h d/c amio drip and start amio 200mg po q12h. increase metoprolol to 25mg po q6hr. Hold Norvasc 2.5 daily Hydralazine/Labetalol as needed for systolic blood pressure greater than 160 IV to KVO GI: regular diet per speech recs. FEN/RENAL: d/c roberto. Replace electrolytes as indicated per ICU electrolyte replacement protocol. ID: Aspiration pneumonia/E Coli continue levaquin x 7 days (anticipated stop date 06/02) Follow-up results of bronchial washing 05/27/17-growing E. coli Follow up blood culture from 05/27/17. Urine Legionella and pneumococcal antigen negative. HEME: Iron deficiency anemia Ferrous sulfate 300 mg per OG daily ENDO: Hypothyroidism Obtained TSH--> normal. Synthroid 50 mcg po daily PROPH: SCDs/continue heparin 5000 units subcutaneous every 8 hours for DVT prophylaxis. Famotidine 20 mg IV every 12 hours for stress ulcer prophylaxis. ACCESS: PIV providing adequate access at this time Bautista Sam MD Jun 01, 2017 16:00
[2017-06-01] MEDS: clonazePAM 1 MG TAB PO SCH (20:34)
[2017-06-02] VITALS: BP 139/72; PULSE 86; RESP 21; TEMP 98.3; O2SAT 95
[2017-06-02] MEDS: DILTIAZEM HCL 90 MG TAB PO SCH ×4 (01:09→18:20)
[2017-06-02] MEDS: METOPROLOL TARTRATE 25 MG TAB PO SCH ×4 (01:10→18:20)
[2017-06-02] MEDS: oxyCODONE/ACETAMINOPHEN 5 MG/325 MG TAB PO PRN ×6 (01:12→21:57)
[2017-06-02 04:00] VITALS: BP 127/69; PULSE 82; RESP 19; TEMP 99.2; O2SAT 92
[2017-06-02] MEDS: CHLORHEXIDINE GLUCONATE 2 % 1 PACK (2 CLOTHS) TOP SCH (04:00)
[2017-06-02] MEDS: LEVOTHYROXINE SODIUM 50 MCG TAB PO SCH (05:51)
[2017-06-02] MEDS: HEPARIN SODIUM - SQ 10,000 UNITS/ML VIAL SQ SCH ×3 (05:53→21:55)
[2017-06-02 08:00] VITALS: BP 130/71; PULSE 81; RESP 17; TEMP 99.1; O2SAT 90
[2017-06-02] MEDS: CHLORHEXIDINE 0.12% (ORAL KIT) 15 ML CUP MT SCH ×2 (08:00→20:00)
[2017-06-02 08:37] LABS: BICARBONATE 25.6 MEQ/L (21.0-32.0); CALCIUM 8.4 MG/DL (8.5-10.1); CREATININE 0.96 MG/DL (0.60-1.30); MAGNESIUM 1.8 MG/DL (1.5-2.5); PHOSPHORUS 3.3 MG/DL (2.5-4.9)
[2017-06-02] MEDS: FERROUS SULFATE 300 MG /5ML UDC PO SCH (09:07)
[2017-06-02] MEDS: FAMOTIDINE 20 MG TAB PO SCH ×2 (09:07→21:55)
[2017-06-02] MEDS: AMIODARONE 200 MG TAB PO SCH ×2 (09:08→21:55)
[2017-06-02] MEDS: VALSARTAN 160 MG TAB PO SCH (09:08)
[2017-06-02] MEDS: amLODIPine BESYLATE 5 MG TAB PO SCH (09:08)
[2017-06-02] MEDS: DORZOLAMIDE 2% OPTH SOLN 200 DROP/10 ML BTLO LEFT EYE SCH ×3 (09:08→18:00)
[2017-06-02] MEDS: ERGOCALCIFEROL (VIT D2) 50,000 UNIT CAP PO SCH (09:08)
--- NOTE | 2017-06-02 09:33 | HHI.PR ---
Subjective Remarks in no acute distress. denies sob or pain. afebrile. d/w the RN and no acute issues over night. Objective Vitals Vital Signs Date Time Temp Pulse Resp B/P (MAP) Pulse Ox O2 Delivery O2 Flow Rate FiO2 06/02/17 08:00 99.1 81 17 130/71 (90) 90 06/02/17 04:00 99.2 82 19 127/69 (88) 92 06/02/17 00:00 98.3 86 21 139/72 (94) 95 06/01/17 20:00 97.2 78 21 136/65 (88) 93 06/01/17 18:00 82 06/01/17 16:05 12 06/01/17 16:00 82 06/01/17 16:00 98.6 82 16 123/59 (80) 93 06/01/17 14:00 86 06/01/17 12:00 80 06/01/17 12:00 98.3 80 18 130/71 (90) 93 06/01/17 10:00 88 06/01/17 09:47 93 I/O 06/01/17 06/01/17 06/01/17 06/02/17 06/02/17 06/02/17 07:00 15:00 23:00 07:00 15:00 23:00 Intake Total 220 ml 600 ml 700 ml Output Total 2200 ml 2240 ml 1200 ml Balance -1980 ml -1640 ml -500 ml Intake Oral 220 ml 600 ml 700 ml Output Urine Total 2200 ml 2240 ml 1200 ml # Bowel Movements 1 1 Result Diagram: 05/31/17 0337 06/02/17 0703 Imaging Last Impressions Chest X-Ray 05/31/17 0600 Signed Impressions: Service Date/Time: May 03:04 - CONCLUSION: Better aeration of lungs with minimal left basilar density. Right lung base has cleared. Miguelito Brooke MD Modified Barium Swallow 05/30/17 0000 Signed Impressions: Service Date/Time: Tuesday, May 30, 2017 11:47 - CONCLUSION: Trace of penetration into the upper airway. Daniel Euceda MD Objective Remarks GENERAL: This is a well-nourished, well-developed patient, in no apparent distress. CARDIOVASCULAR: Regular rate and regular rhythm without murmurs, gallops, or rubs. RESPIRATORY: Clear to auscultation. Breath sounds equal bilaterally. No wheezes , rales, or rhonchi. GASTROINTESTINAL: Abdomen soft, non-tender, nondistended. Normal, active bowel sounds MUSCULOSKELETAL: Extremities without clubbing, cyanosis, or edema. NEURO: Alert & Oriented x4 to person, place, time, situation. Moves all ext x4 Medications and IVs Inpatient Medications Acetaminophen 65 ml @ 260 mls/hr NOW ONCE IV Last administered on 05/29/17at 11:39; Start 05/29/17 at 12:00; Stop 05/29/17 at 12:14; Status DC Acetaminophen (Tylenol) 650 mg Q6H PRN PO PAIN LEVEL 1 TO 3; Start 05/27/17 at 17:00; Stop 05/30/17 at 14:47; Status DC Acetaminophen/ Hydrocodone Bitart ([place] 5-325 Mg) 1 tab Q6H PRN PO PAIN SCALE 4 TO 10 Last administered on 05/27/17at 17:27; Start 05/27/17 at 17:00; Stop 05/30/17 at 14:47; Status DC Albuterol/ Ipratropium (Duoneb Neb) 1 ampule ONCE ONCE NEB Last administered on 05/27/17at 22:01; Start 05/27/17 at 22:00; Stop 05/27/17 at 22:01; Status DC Amiodarone HCl (Cordarone) 200 mg Q12HR PO Last administered on 06/02/17at 09:08 ; Start 05/31/17 at 21:45 Amiodarone HCl 150 mg/Dextrose 103 ml @ 600 mls/hr Q11M ONCE IV Last administered on 05/30/17at 16:47; Start 05/30/17 at 16:04; Stop 05/30/17 at 16:23 ; Status DC Amiodarone HCl 450 mg/Sodium Chloride 250 ml @ 33.33 mls/ hr Q7H31M PRN IV Per Protocol Last administered on 05/31/17at 13:14; Start 05/30/17 at 16:14; Stop at 21:42; Status DC Amlodipine Besylate (Norvasc) 2.5 mg DAILY PO Last administered on 06/02/17at 09 :08; Start 05/27/17 at 20:45 Aspirin (Aspirin Supp) 300 mg ONCE ONCE RECTAL Last administered on 05/28/17at 06:01; Start 05/28/17 at 04:45; Stop 05/28/17 at 04:55; Status DC Azithromycin 500 mg/Sodium Chloride 250 ml @ 250 mls/hr ONCE ONCE IV ; Start 05/27/17 at 08:00; Stop 05/27/17 at 09:30; Status DC Carbidopa/Levodopa (Sinemet 25-100 Mg) 2 tab BID PO Last administered on at 23:00; Start 05/27/17 at 21:00 Ceftriaxone Sodium 1000 mg/ Sodium Chloride 100 ml @ 200 mls/hr ONCE ONCE IV Last administered on 05/27/17at 08:33; Start 05/27/17 at 08:00; Stop 05/27/17 at 08:29; Status DC Chlorhexidine Gluconate (Chlorhexidine 2% Cloth) 3 pack UNSCH PRN TOP HYGIENIC CARE; Start 05/27/17 at 19:30 Chlorhexidine Gluconate (Peridex 0.12% Liq) 15 ml BID@08,20 MT Last administered on 05/30/17at 20:00; Start 05/27/17 at 20:00 Clonazepam (KlonoPIN) 4 mg HS PO Last administered on 06/01/17at 20:34; Start at 21:00 Dextrose/Sodium Chloride 1,000 ml @ 125 mls/hr Q8H IV Last administered on at 04:35; Start 05/28/17 at 04:45; Stop 05/29/17 at 09:29; Status DC Digoxin (Lanoxin Inj) 0.25 mg ONCE ONCE IV PUSH Last administered on at 13:57; Start 05/30/17 at 13:00; Stop 05/30/17 at 13:01; Status DC Diltiazem HCl (Cardizem Inj) 15 mg NOW ONCE IV PUSH Last administered on at 10:39; Start 05/30/17 at 10:15; Stop 05/30/17 at 10:16; Status DC Diltiazem HCl (Cardizem) 90 mg Q6HR PO Last administered on 06/02/17at 05:51; Start 05/31/17 at 21:45 Diltiazem HCl 125 mg/Sodium Chloride 125 ml @ 5 mls/hr TITRATE PRN IV Tachycardia Last administered on 05/31/17at 20:43; Start 05/30/17 at 11:00; Stop 05/31/17 at 21:42; Status DC Dorzolamide HCl (Trusopt 2% Opth Soln) 1 drop TID LEFT EYE Last administered on 06/02/17 09:08; Start 05/28/17 at 09:00 Ergocalciferol (Drisdol) 50,000 units DAILY PO Last administered on 06/02/17 09:08; Start 05/31/17 at 09:00 Famotidine (Pepcid Inj) 20 mg Q12H IV PUSH Last administered on 05/29/17at 08:52 ; Start 05/27/17 at 21:00; Stop 05/29/17 at 09:14; Status DC Famotidine (Pepcid) 20 mg BID PO Last administered on 06/02/17at 09:07; Start at 21:00 Fentanyl Citrate 250 ml @ 5 mls/hr TITRATE PRN IV SEDATION Last administered on 05/27/17at 21:16; Start 05/27/17 at 20:30; Stop 05/29/17 at 09:28; Status DC Fentanyl Citrate (fentaNYL INJ) 50 mcg ONCE ONCE IV PUSH ; Start 05/27/17 at 20 :30; Stop 05/27/17 at 20:46; Status DC Ferrous Sulfate (Ferrous Sulfate Liq) 300 mg DAILY PO Last administered on 06/02at 09:07; Start 05/28/17 at 09:00 Guaifenesin/ Dextromethorphan (Robitussin Dm 200-20 Mg/10 ml Liq) 10 ml Q4H PRN PO COUGH; Start 05/27/17 at 10:00; Status Future Hold Heparin Sodium (Porcine) (Heparin Inj) 5,000 units Q8H SQ Last administered on 06/02/17at 05:53; Start 05/27/17 at 12:00 Hydralazine HCl (Apresoline Inj) 10 mg Q4H PRN IV PUSH SBP >160; Start at 20:45 Levofloxacin/ Dextrose 150 ml @ 100 mls/hr Q24H IV Last administered on at 11:00; Start 05/27/17 at 11:00; Stop 06/02/17 at 12:00 Levothyroxine Sodium (Synthroid) 50 mcg DAILY@0600 PO Last administered on 06/02at 05:51; Start 05/28/17 at 06:00 Magnesium Oxide (Mag-Ox) 800 mg UNSCH PRN PO For Magnesium 1.2 - 1.6 mg/dL; Start 05/27/17 at 20:45 Magnesium Sulfate 2 gm/Sodium Chloride 100 ml @ 50 mls/hr UNSCH PRN IV For Magnesium 1.2 - 1.6 mg/dL; Start 05/27/17 at 20:45 Magnesium Sulfate 4 gm/Sodium Chloride 100 ml @ 50 mls/hr UNSCH PRN IV For Magnesium 0.9 - 1.1 mg/dL; Start 05/27/17 at 20:45 Magnesium Sulfate/ Dextrose 100 ml @ 100 mls/hr ONCE ONCE IV Last administered on 05/30/17at 13:57; Start 05/30/17 at 13:00; Stop 05/30/17 at 13:59 ; Status DC Metoprolol Tartrate (Lopressor Inj) 5 mg ONCE ONCE IV PUSH Last administered on 05/30/17at 16:50; Start 05/30/17 at 16:35; Stop 05/30/17 at 16:36; Status DC Metoprolol Tartrate (Lopressor) 25 mg Q6HR PO Last administered on 06/02/17at 05 :51; Start 06/01/17 at 00:00 Midazolam HCl (Versed Inj) 10 mg ONCE ONCE IV PUSH Last administered on at 19:45; Start 05/27/17 at 19:45; Stop 05/27/17 at 19:46; Status DC Miscellaneous (Pill Splitter) 1 ea UNSCH PRN OTHER SEE LABEL COMMENTS; Start at 21:00 Miscellaneous Information SPECIFIC LAB TO BE DRAWN:[facility] DATE TO BE DRRoro.. ONCE ONCE .XX ; Start 05/29/17 at 10:45; Stop 05/29/17 at 10:45; Status DC Morphine Sulfate (Morphine Inj) 1 mg Q6H PRN IV PUSH SEE LABEL COMMENTS Last administered on 05/30/17at 16:50; Start 05/29/17 at 14:00 Ondansetron HCl (Zofran Inj) 4 mg Q6H PRN IV PUSH NAUSEA; Start 05/27/17 at 10: 00 Oxycodone/ Acetaminophen (Percocet 5-325 Mg) 1 tab Q4H PRN PO PAIN SCALE 1-10 Last administered on 06/02/17at 05:51; Start 05/30/17 at 14:15 Patient Own Medication PT OWN MED: METHYLPHENIDATE CD 20 MG PO TID TID PO ; Start 05/28/17 at 09:00; Status Future Hold Pharmacy Profile Note 0 ml @ 0 mls/hr UNSCH OTHER ; Start 05/27/17 at 09:45; Stop 05/29/17 at 09:28; Status DC Piperacillin Sod/ Tazobactam Sod 100 ml @ 200 mls/hr Q6H IV Last administered on 05/31/17at 14:59; Start 05/27/17 at 16:00; Stop 05/31/17 at 21:42; Status DC Potassium Phosphate (K-Phos) 2,000 mg UNSCH PRN PO/TUBE SEE LABEL COMMENTS; Start 05/27/17 at 20:45 Potassium Phosphate 30 mmol/ Sodium Chloride 260 ml @ 42 mls/hr UNSCH PRN IV SEE LABEL COMMENTS; Start 05/27/17 at 20:45 Potassium Bicarb/ Potassium Chloride (K-Lyte Cl Eff) 50 meq UNSCH PRN PO For Potassium 3.3 - 3.5 mEq/L Last administered on 05/31/17at 09:00; Start 05/27/17 at 20:45 Potassium Chloride 100 ml @ 50 mls/hr Q2H PRN IV For Potassium 3.3 - 3.5 mEq/ L Last administered on 05/30/17at 12:48; Start 05/27/17 at 20:45 Propofol 100 ml @ 2.295 mls/ hr TITRATE PRN IV SEDATION Last administered on at 03:19; Start 05/27/17 at 19:30; Stop 05/29/17 at 09:28; Status DC Rocuronium [place] (Zemuron Inj) 50 mg BOLUS ONCE IV Last administered on 05/27at 19:45; Start 05/27/17 at 19:45; Stop 3/25/18 at 19:46; Status DC Sodium Chloride 1,000 ml @ 999 mls/hr BOLUS ONCE IV ; Start 05/28/17 at 09:30 ; Stop 05/28/17 at 10:30; Status DC Sodium Phosphate 30 mmol/Sodium Chloride 250 ml @ 42 mls/hr UNSCH PRN IV For Phosphorus < 2.5 mg/dL; Start 05/27/17 at 20:45 Tizanidine HCl (Zanaflex) 4 mg TID PO Last administered on 06/02/17at 09:08; Start 05/30/17 at 18:00 Valsartan (Diovan) 320 mg DAILY PO Last administered on 06/02/17at 09:08; Start 05/30/17 at 14:15 Vancomycin HCl 1000 mg/Sodium Chloride 250 ml @ 250 mls/hr Q12H IV Last administered on 05/28/17at 23:00; Start 05/27/17 at 23:00; Stop 05/29/17 at 09:28 ; Status DC Zolpidem Tartrate (Ambien) 10 mg HS PRN PO INSOMNIA Last administered on at 21:35; Start 05/30/17 at 14:15; Stop 05/31/17 at 21:42; Status DC A/P Assessment and Plan A/P Choking with aspiration into airway- resolved. Acute respiratory failure- resolved. Aspiration pneumonia/EColi continue Levaquin and neb treatment. CXR bilateral opacities-improving. ST following. Parkinson's disease Anxiety All sedation discontinued Resumes Sinemet Glaucoma Continue trusopt Atrial fibrillation with RVR -now NSR left bundle branch block Hypertension continue metoprolol,cardizem and amiodarone. echo pending. Iron deficiency anemia Ferrous sulfate 300 mg per OG daily Hypothyroidism Obtained TSH--> normal. Synthroid 50 mcg po daily PROPH: SCDs/continue heparin 5000 units subcutaneous every 8 hours for DVT prophylaxis. Famotidine 20 mg IV every 12 hours for stress ulcer prophylaxis. Discharge Planning rehab was offered but the patient declined. case management for [facility]. Rahul Lerma MD Jun 02, 2017 09:33
--- NOTE | 2017-06-02 09:38 | HHI.FF ---
Face to Face Verification Diagnosis: (1) Pneumonia Physical Therapy Order: Evaluate and Treat Home Health Nursing Order: Medical education Signs/symptoms of disease process Medication education-adverse effect Nursing assessment with vital signs I have seen patient Anthony Steinberg on 06/02/17. My clinical findings support the need for the requested home health care services because: Ltd mobility - disease progression I certify that my clinical findings support that this patient is homebound because: Unsteady gait/balance Rahul Lerma MD Jun 02, 2017 09:38
[2017-06-02] MEDS: CARBIDOPA/LEVODOPA 25 MG/100 MG TAB PO SCH ×2 (10:26→21:55)
[2017-06-02] MEDS: LEVOFLOXACIN 750 MG PREMIX INJ 150 ML IV SCH (10:29)
[2017-06-02 12:00] VITALS: BP 104/64; PULSE 85; RESP 17; TEMP 98.3; O2SAT 92
--- NOTE | 2017-06-02 14:53 | ECHRPT ---
Indication: Paroxysmal atrial fibrillation CONCLUSIONS The left ventricular systolic function is hard to assess due to poor visualization - suspect normal r mildly impaired - unable to assess regional wall motion. Wall thickness is measured at the upper limits of normal. Normal left ventricular size. There is trace tricuspid valve regurgitation. The estimated pulmonary arterial pressure is 27 mmHg. BP: / HR: Rhythm: Other MEASUREMENTS (Male / Female) Normal Values Technical Quality:Poor 2D ECHO LV Diastolic Diameter PLAX 5.0 cm 4.2 - 5.9 / 3.9 - 5.3 cm LV Systolic Diameter PLAX 3.7 cm IVS Diastolic Thickness 0.9 cm 0.6 - 1.0 / 0.6 - 0.9 cm LVPW Diastolic Thickness 0.9 cm 0.6 - 1.0 / 0.6 - 0.9 cm LV Relative Wall Thickness 0.4 LVOT Diameter 2.3 cm M-MODE Aortic Root Diameter MM 2.0 cm LA Systolic Diameter MM 3.8 cm LA Ao Ratio MM 1.9 AV Cusp Separation MM 1.4 cm DOPPLER AV Peak Velocity 137.0 cm/s AV Peak Gradient 7.5 mmHg LVOT Peak Velocity 93.8 cm/s LVOT Peak Gradient 3.5 mmHg AV Area Cont Eq pk 2.8 cm Mitral E Point Velocity 68.6 cm/s Mitral A Point Velocity 74.5 cm/s Mitral E to A Ratio 0.9 TR Peak Velocity 206.0 cm/s TR Peak Gradient 17.0 mmHg Right Atrial Pressure 10.0 mmHg Pulmonary Artery Systolic Pressu 27.0 mmHg Right Ventricular Systolic Press 27.0 mmHg PV Peak Velocity 111.0 cm/s PV Peak Gradient 4.9 mmHg FINDINGS LEFT VENTRICLE The left ventricular systolic function is hard to assess due to poor visualization - suspect normal r mildly impaired - unable to assess regional wall motion. Wall thickness is measured at the upper limits of normal. Normal left ventricular size. RIGHT VENTRICLE Normal right ventricular size and systolic function. LEFT ATRIUM The left atrial size is normal. RIGHT ATRIUM The right atrial size is normal. ATRIAL SEPTUM Normal atrial septal thickness without atrial level shunting by limited color doppler interrogation. AORTA The aortic root and proximal ascending aorta are normal in size on limited imaging. MITRAL VALVE Structurally normal mitral valve. No mitral valve stenosis or regurgitation. AORTIC VALVE Trileaflet aortic valve. No aortic valve stenosis or regurgitation. TRICUSPID VALVE There is trace tricuspid valve regurgitation. The estimated pulmonary arterial pressure is 27 mmHg. PULMONARY VALVE No pulmonary valve regurgitation or stenosis. VESSELS The inferior vena cava is normal in size. PERICARDIUM No pericardial effusion. Yahir Wilburn MD (Electronically Signed) Final Date:02 June 2017 14:53
[2017-06-02 16:00] VITALS: BP 128/65; PULSE 83; RESP 17; TEMP 97.6; O2SAT 92
[2017-06-02 20:00] VITALS: BP 165/72; PULSE 94; RESP 15; TEMP 98.1; O2SAT 93
[2017-06-02] MEDS: clonazePAM 1 MG TAB PO SCH (21:55)
[2017-06-03] VITALS (11 sets, daily range): BP systolic 101–132; BP diastolic 55–72; PULSE 53–83; RESP 15–20; TEMP 97.1–98.7; O2SAT 91–99
[2017-06-03] MEDS: METOPROLOL TARTRATE 25 MG TAB PO SCH ×5 (00:16→23:40)
[2017-06-03] MEDS: DILTIAZEM HCL 90 MG TAB PO SCH ×5 (00:16→23:39)
[2017-06-03] MEDS: CHLORHEXIDINE GLUCONATE 2 % 1 PACK (2 CLOTHS) TOP SCH ×2 (04:00→23:42)
[2017-06-03] MEDS: HEPARIN SODIUM - SQ 10,000 UNITS/ML VIAL SQ SCH ×2 (04:43→12:52)
[2017-06-03] MEDS: oxyCODONE/ACETAMINOPHEN 5 MG/325 MG TAB PO PRN ×5 (04:44→22:15)
[2017-06-03] MEDS: LEVOTHYROXINE SODIUM 50 MCG TAB PO SCH (06:26)
[2017-06-03] MEDS: CHLORHEXIDINE 0.12% (ORAL KIT) 15 ML CUP MT SCH ×2 (08:00→22:04)
--- NOTE | 2017-06-03 09:23 | HHI.PR ---
Subjective Remarks in no acute distress. denies pain. no fever. Objective Vitals Vital Signs Date Time Temp Pulse Resp B/P (MAP) Pulse Ox O2 Delivery O2 Flow Rate FiO2 06/03/17 04:00 98.7 67 15 113/64 (80) 91 06/03/17 00:00 98.7 81 15 122/67 (85) 91 06/02/17 20:00 98.1 94 15 165/72 (103) 93 06/02/17 16:00 97.6 83 17 128/65 (86) 92 06/02/17 12:00 98.3 85 17 104/64 (77) 92 I/O 06/02/17 06/02/17 06/02/17 06/03/17 06/03/17 06/03/17 07:00 15:00 23:00 07:00 15:00 23:00 Intake Total 700 ml 150 ml 1200 ml 2000 ml Output Total 1200 ml 1025 ml 2000 ml Balance -500 ml 150 ml 175 ml 0 ml Intake Oral 700 ml 1200 ml 2000 ml IV Total 150 ml Output Urine Total 1200 ml 1025 ml 2000 ml # Voids 2 # Bowel Movements 2 0 Result Diagram: 05/31/17 0337 06/02/17 0703 Imaging Last Impressions Chest X-Ray 05/31/17 0600 Signed Impressions: Service Date/Time: May 03:04 - CONCLUSION: Better aeration of lungs with minimal left basilar density. Right lung base has cleared. Miguelito Brooke MD Modified Barium Swallow 05/30/17 0000 Signed Impressions: Service Date/Time: Tuesday, May 30, 2017 11:47 - CONCLUSION: Trace of penetration into the upper airway. Daniel Euceda MD Objective Remarks GENERAL: This is a well-nourished, well-developed patient, in no apparent distress. CARDIOVASCULAR: Regular rate and regular rhythm without murmurs, gallops, or rubs. RESPIRATORY: Clear to auscultation. Breath sounds equal bilaterally. No wheezes , rales, or rhonchi. GASTROINTESTINAL: Abdomen soft, non-tender, nondistended. Normal, active bowel sounds MUSCULOSKELETAL: Extremities without clubbing, cyanosis, or edema. NEURO: Alert & Oriented x4 to person, place, time, situation. Moves all ext x4 Medications and IVs Inpatient Medications Acetaminophen 65 ml @ 260 mls/hr NOW ONCE IV Last administered on 05/29/17at 11:39; Start 05/29/17 at 12:00; Stop 05/29/17 at 12:14; Status DC Acetaminophen (Tylenol) 650 mg Q6H PRN PO PAIN LEVEL 1 TO 3; Start 05/27/17 at 17:00; Stop 05/30/17 at 14:47; Status DC Acetaminophen/ Hydrocodone Bitart ([place] 5-325 Mg) 1 tab Q6H PRN PO PAIN SCALE 4 TO 10 Last administered on 05/27/17at 17:27; Start 05/27/17 at 17:00; Stop 05/30/17 at 14:47; Status DC Albuterol/ Ipratropium (Duoneb Neb) 1 ampule ONCE ONCE NEB Last administered on 05/27/17at 22:01; Start 05/27/17 at 22:00; Stop 05/27/17 at 22:01; Status DC Amiodarone HCl (Cordarone) 200 mg Q12HR PO Last administered on 06/02/17at 21:55 ; Start 05/31/17 at 21:45 Amiodarone HCl 150 mg/Dextrose 103 ml @ 600 mls/hr Q11M ONCE IV Last administered on 05/30/17at 16:47; Start 05/30/17 at 16:04; Stop 05/30/17 at 16:23 ; Status DC Amiodarone HCl 450 mg/Sodium Chloride 250 ml @ 33.33 mls/ hr Q7H31M PRN IV Per Protocol Last administered on 05/31/17at 13:14; Start 05/30/17 at 16:14; Stop at 21:42; Status DC Amlodipine Besylate (Norvasc) 2.5 mg DAILY PO Last administered on 06/02/17at 09 :08; Start 05/27/17 at 20:45; Status Future Hold Aspirin (Aspirin Supp) 300 mg ONCE ONCE RECTAL Last administered on 05/28/17at 06:01; Start 05/28/17 at 04:45; Stop 05/28/17 at 04:55; Status DC Azithromycin 500 mg/Sodium Chloride 250 ml @ 250 mls/hr ONCE ONCE IV ; Start 05/27/17 at 08:00; Stop 05/27/17 at 09:30; Status DC Carbidopa/Levodopa (Sinemet 25-100 Mg) 2 tab BID PO Last administered on 21:55; Start 05/27/17 at 21:00 Ceftriaxone Sodium 1000 mg/ Sodium Chloride 100 ml @ 200 mls/hr ONCE ONCE IV Last administered on 05/27/17at 08:33; Start 05/27/17 at 08:00; Stop 05/27/17 at 08:29; Status DC Chlorhexidine Gluconate (Chlorhexidine 2% Cloth) 3 pack UNSCH PRN TOP HYGIENIC CARE; Start 05/27/17 at 19:30 Chlorhexidine Gluconate (Peridex 0.12% Liq) 15 ml BID@08,20 MT Last administered on 05/30/17at 20:00; Start 05/27/17 at 20:00 Clonazepam (KlonoPIN) 4 mg HS PO Last administered on 06/02/17at 21:55; Start at 21:00 Dextrose/Sodium Chloride 1,000 ml @ 125 mls/hr Q8H IV Last administered on at 04:35; Start 05/28/17 at 04:45; Stop 05/29/17 at 09:29; Status DC Digoxin (Lanoxin Inj) 0.25 mg ONCE ONCE IV PUSH Last administered on at 13:57; Start 05/30/17 at 13:00; Stop 05/30/17 at 13:01; Status DC Diltiazem HCl (Cardizem Inj) 15 mg NOW ONCE IV PUSH Last administered on at 10:39; Start 05/30/17 at 10:15; Stop 05/30/17 at 10:16; Status DC Diltiazem HCl (Cardizem) 90 mg Q6HR PO Last administered on 06/03/17 06:26; Start 05/31/17 at 21:45 Diltiazem HCl 125 mg/Sodium Chloride 125 ml @ 5 mls/hr TITRATE PRN IV Tachycardia Last administered on 05/31/17at 20:43; Start 05/30/17 at 11:00; Stop 05/31/17 at 21:42; Status DC Dorzolamide HCl (Trusopt 2% Opth Soln) 1 drop TID LEFT EYE Last administered on 06/02/17at 18:00; Start 05/28/17 at 09:00 Ergocalciferol (Drisdol) 50,000 units DAILY PO Last administered on 06/02/17at 09:08; Start 05/31/17 at 09:00 Famotidine (Pepcid Inj) 20 mg Q12H IV PUSH Last administered on 05/29/17at 08:52 ; Start 05/27/17 at 21:00; Stop 05/29/17 at 09:14; Status DC Famotidine (Pepcid) 20 mg BID PO Last administered on 06/02/17at 21:55; Start at 21:00 Fentanyl Citrate 250 ml @ 5 mls/hr TITRATE PRN IV SEDATION Last administered on 05/27/17at 21:16; Start 05/27/17 at 20:30; Stop 05/29/17 at 09:28; Status DC Fentanyl Citrate (fentaNYL INJ) 50 mcg ONCE ONCE IV PUSH ; Start 05/27/17 at 20 :30; Stop 05/27/17 at 20:46; Status DC Ferrous Sulfate (Ferrous Sulfate Liq) 300 mg DAILY PO Last administered on 06/02at 09:07; Start 05/28/17 at 09:00; Stop 06/02/17 at 09:30; Status DC Ferrous Sulfate (Ferrous Sulfate) 325 mg DAILY PO ; Start 06/03/17 at 09:00 Guaifenesin/ Dextromethorphan (Robitussin Dm 200-20 Mg/10 ml Liq) 10 ml Q4H PRN PO COUGH; Start 05/27/17 at 10:00; Status Future Hold Heparin Sodium (Porcine) (Heparin Inj) 5,000 units Q8H SQ Last administered on 06/03/17at 04:43; Start 05/27/17 at 12:00 Hydralazine HCl (Apresoline Inj) 10 mg Q4H PRN IV PUSH SBP >160; Start at 20:45 Levofloxacin/ Dextrose 150 ml @ 100 mls/hr Q24H IV Last administered on at 10:29; Start 05/27/17 at 11:00; Stop 06/02/17 at 12:00; Status DC Levothyroxine Sodium (Synthroid) 50 mcg DAILY@0600 PO Last administered on at 06:26; Start 05/28/17 at 06:00 Magnesium Oxide (Mag-Ox) 800 mg UNSCH PRN PO For Magnesium 1.2 - 1.6 mg/dL; Start 05/27/17 at 20:45; Stop 06/02/17 at 09:29; Status DC Magnesium Sulfate 2 gm/Sodium Chloride 100 ml @ 50 mls/hr UNSCH PRN IV For Magnesium 1.2 - 1.6 mg/dL; Start 05/27/17 at 20:45; Stop 06/02/17 at 09:29; Status DC Magnesium Sulfate 4 gm/Sodium Chloride 100 ml @ 50 mls/hr UNSCH PRN IV For Magnesium 0.9 - 1.1 mg/dL; Start 05/27/17 at 20:45; Stop 06/02/17 at 09:29; Status DC Magnesium Sulfate/ Dextrose 100 ml @ 100 mls/hr ONCE ONCE IV Last administered on 05/30/17at 13:57; Start 05/30/17 at 13:00; Stop 05/30/17 at 13:59 ; Status DC Metoprolol Tartrate (Lopressor Inj) 5 mg ONCE ONCE IV PUSH Last administered on 05/30/17at 16:50; Start 05/30/17 at 16:35; Stop 05/30/17 at 16:36; Status DC Metoprolol Tartrate (Lopressor) 25 mg Q6HR PO Last administered on 06/03/17at 06: 26; Start 06/01/17 at 00:00 Midazolam HCl (Versed Inj) 10 mg ONCE ONCE IV PUSH Last administered on at 19:45; Start 05/27/17 at 19:45; Stop 05/27/17 at 19:46; Status DC Miscellaneous (Pill Splitter) 1 ea UNSCH PRN OTHER SEE LABEL COMMENTS; Start at 21:00 Miscellaneous Information SPECIFIC LAB TO BE DRAWN:[facility] TROUGH DATE TO BE DRRoro.. ONCE ONCE .XX ; Start 05/29/17 at 10:45; Stop 05/29/17 at 10:45; Status DC Morphine Sulfate (Morphine Inj) 1 mg Q6H PRN IV PUSH SEE LABEL COMMENTS Last administered on 05/30/17at 16:50; Start 05/29/17 at 14:00 Ondansetron HCl (Zofran Inj) 4 mg Q6H PRN IV PUSH NAUSEA; Start 05/27/17 at 10: 00 Oxycodone/ Acetaminophen (Percocet 5-325 Mg) 1 tab Q4H PRN PO PAIN SCALE 1-10 Last administered on 06/03/17at 04:44; Start 05/30/17 at 14:15 Patient Own Medication PT OWN MED: METHYLPHENIDATE CD 20 MG PO TID TID PO ; Start 05/28/17 at 09:00; Status Future Hold Pharmacy Profile Note 0 ml @ 0 mls/hr UNSCH OTHER ; Start 05/27/17 at 09:45; Stop 05/29/17 at 09:28; Status DC Piperacillin Sod/ Tazobactam Sod 100 ml @ 200 mls/hr Q6H IV Last administered on 05/31/17at 14:59; Start 05/27/17 at 16:00; Stop 05/31/17 at 21:42; Status DC Potassium Phosphate (K-Phos) 2,000 mg UNSCH PRN PO/TUBE SEE LABEL COMMENTS; Start 05/27/17 at 20:45; Stop 06/02/17 at 09:29; Status DC Potassium Phosphate 30 mmol/ Sodium Chloride 260 ml @ 42 mls/hr UNSCH PRN IV SEE LABEL COMMENTS; Start 05/27/17 at 20:45; Stop 06/02/17 at 09:29; Status DC Potassium Bicarb/ Potassium Chloride (K-Lyte Cl Eff) 50 meq UNSCH PRN PO For Potassium 3.3 - 3.5 mEq/L Last administered on 05/31/17at 09:00; Start 05/27/17 at 20:45; Stop 06/02/17 at 09:29; Status DC Potassium Chloride 100 ml @ 50 mls/hr Q2H PRN IV For Potassium 3.3 - 3.5 mEq/ L Last administered on 05/30/17at 12:48; Start 05/27/17 at 20:45; Stop 06/02/17 at 09:29; Status DC Propofol 100 ml @ 2.295 mls/ hr TITRATE PRN IV SEDATION Last administered on at 03:19; Start 05/27/17 at 19:30; Stop 05/29/17 at 09:28; Status DC Rocuronium [place] (Zemuron Inj) 50 mg BOLUS ONCE IV Last administered on 05/27at 19:45; Start 05/27/17 at 19:45; Stop 05/27/17 at 19:46; Status DC Sodium Chloride 1,000 ml @ 999 mls/hr BOLUS ONCE IV ; Start 05/28/17 at 09:30 ; Stop 05/28/17 at 10:30; Status DC Sodium Phosphate 30 mmol/Sodium Chloride 250 ml @ 42 mls/hr UNSCH PRN IV For Phosphorus < 2.5 mg/dL; Start 05/27/17 at 20:45; Stop 06/02/17 at 09:29; Status DC Tizanidine HCl (Zanaflex) 4 mg TID PO Last administered on 06/02/17at 18:20; Start 05/30/17 at 18:00 Valsartan (Diovan) 320 mg DAILY PO Last administered on 06/02/17at 09:08; Start 05/30/17 at 14:15 Vancomycin HCl 1000 mg/Sodium Chloride 250 ml @ 250 mls/hr Q12H IV Last administered on 05/28/17at 23:00; Start 05/27/17 at 23:00; Stop 05/29/17 at 09:28 ; Status DC Zolpidem Tartrate (Ambien) 10 mg HS PRN PO INSOMNIA Last administered on at 21:35; Start 05/30/17 at 14:15; Stop 05/31/17 at 21:42; Status DC A/P Assessment and Plan A/P Choking with aspiration into airway- resolved. Acute respiratory failure- resolved. Aspiration pneumonia/EColi continue Levaquin and neb treatment. CXR bilateral opacities-improving. ST following. Parkinson's disease Anxiety All sedation discontinued Resumes Sinemet Glaucoma Continue trusopt Atrial fibrillation with RVR -now NSR left bundle branch block Hypertension continue metoprolol,cardizem and amiodarone. echo with mildly reduced LV function- not an optimal study. will consider cardiology consult. Iron deficiency anemia Ferrous sulfate 300 mg per OG daily Hypothyroidism Obtained TSH--> normal. Synthroid 50 mcg po daily PROPH: SCDs/continue heparin 5000 units subcutaneous every 8 hours for DVT prophylaxis. Famotidine 20 mg IV every 12 hours for stress ulcer prophylaxis. Discharge Planning rehab was offered but the patient declined. case management for [facility]. Rahul Lerma MD Jun 03, 2017 09:23
[2017-06-03] MEDS: FERROUS SULFATE 325 MG (65 MG ELEMENTAL IRON) TAB PO SCH (09:32)
[2017-06-03] MEDS: ERGOCALCIFEROL (VIT D2) 50,000 UNIT CAP PO SCH (09:33)
[2017-06-03] MEDS: AMIODARONE 200 MG TAB PO SCH (09:33)
[2017-06-03] MEDS: CARBIDOPA/LEVODOPA 25 MG/100 MG TAB PO SCH ×2 (09:33→22:15)
[2017-06-03] MEDS: FAMOTIDINE 20 MG TAB PO SCH ×2 (09:33→22:15)
[2017-06-03] MEDS: VALSARTAN 160 MG TAB PO SCH (09:33)
[2017-06-03] MEDS: DORZOLAMIDE 2% OPTH SOLN 200 DROP/10 ML BTLO LEFT EYE SCH ×3 (09:35→17:41)
--- NOTE | 2017-06-03 11:06 | HHI.PR ---
Subjective Remarks in no acute distress. denies chest pain, sob. no fever. no new complaints. Objective Vitals Vital Signs Date Time Temp Pulse Resp B/P (MAP) Pulse Ox O2 Delivery O2 Flow Rate FiO2 06/03/17 08:00 98.2 74 18 121/65 (83) 99 06/03/17 04:00 98.7 67 15 113/64 (80) 91 06/03/17 00:00 98.7 81 15 122/67 (85) 91 06/02/17 20:00 98.1 94 15 165/72 (103) 93 06/02/17 16:00 97.6 83 17 128/65 (86) 92 06/02/17 12:00 98.3 85 17 104/64 (77) 92 I/O 06/02/17 06/02/17 06/02/17 06/03/17 06/03/17 06/03/17 07:00 15:00 23:00 07:00 15:00 23:00 Intake Total 700 ml 150 ml 1200 ml 2000 ml Output Total 1200 ml 1025 ml 2000 ml Balance -500 ml 150 ml 175 ml 0 ml Intake Oral 700 ml 1200 ml 2000 ml IV Total 150 ml Output Urine Total 1200 ml 1025 ml 2000 ml # Voids 2 # Bowel Movements 2 0 Result Diagram: 05/31/17 0337 06/02/17 0703 Imaging Last Impressions Chest X-Ray 05/31/17 0600 Signed Impressions: Service Date/Time: May 03:04 - CONCLUSION: Better aeration of lungs with minimal left basilar density. Right lung base has cleared. Miguelito Brooke MD Modified Barium Swallow 05/30/17 0000 Signed Impressions: Service Date/Time: Tuesday, May 30, 2017 11:47 - CONCLUSION: Trace of penetration into the upper airway. Daniel Euceda MD Objective Remarks GENERAL: This is a well-nourished, well-developed patient, in no apparent distress. CARDIOVASCULAR: Regular rate and regular rhythm without murmurs, gallops, or rubs. RESPIRATORY: Clear to auscultation. Breath sounds equal bilaterally. No wheezes , rales, or rhonchi. GASTROINTESTINAL: Abdomen soft, non-tender, nondistended. Normal, active bowel sounds MUSCULOSKELETAL: Extremities without clubbing, cyanosis, or edema. NEURO: Alert & Oriented x4 to person, place, time, situation. Moves all ext x4 Medications and IVs Inpatient Medications Acetaminophen 65 ml @ 260 mls/hr NOW ONCE IV Last administered on 05/29/17at 11:39; Start 05/29/17 at 12:00; Stop 05/29/17 at 12:14; Status DC Acetaminophen (Tylenol) 650 mg Q6H PRN PO PAIN LEVEL 1 TO 3; Start 05/27/17 at 17:00; Stop 05/30/17 at 14:47; Status DC Acetaminophen/ Hydrocodone Bitart ([place] 5-325 Mg) 1 tab Q6H PRN PO PAIN SCALE 4 TO 10 Last administered on 05/27/17at 17:27; Start 05/27/17 at 17:00; Stop 05/30/17 at 14:47; Status DC Albuterol/ Ipratropium (Duoneb Neb) 1 ampule ONCE ONCE NEB Last administered on 05/27/17at 22:01; Start 05/27/17 at 22:00; Stop 05/27/17 at 22:01; Status DC Amiodarone HCl (Cordarone) 200 mg Q12HR PO Last administered on 06/03/17at 09:33 ; Start 05/31/17 at 21:45 Amiodarone HCl 150 mg/Dextrose 103 ml @ 600 mls/hr Q11M ONCE IV Last administered on 05/30/17at 16:47; Start 05/30/17 at 16:04; Stop 05/30/17 at 16:23 ; Status DC Amiodarone HCl 450 mg/Sodium Chloride 250 ml @ 33.33 mls/ hr Q7H31M PRN IV Per Protocol Last administered on 05/31/17at 13:14; Start 05/30/17 at 16:14; Stop at 21:42; Status DC Amlodipine Besylate (Norvasc) 2.5 mg DAILY PO Last administered on 06/02/17at 09 :08; Start 05/27/17 at 20:45; Status Future Hold Aspirin (Aspirin Supp) 300 mg ONCE ONCE RECTAL Last administered on 05/28/17at 06:01; Start 05/28/17 at 04:45; Stop 05/28/17 at 04:55; Status DC Azithromycin 500 mg/Sodium Chloride 250 ml @ 250 mls/hr ONCE ONCE IV ; Start 05/27/17 at 08:00; Stop 05/27/17 at 09:30; Status DC Carbidopa/Levodopa (Sinemet 25-100 Mg) 2 tab BID PO Last administered on at 09:33; Start 05/27/17 at 21:00 Ceftriaxone Sodium 1000 mg/ Sodium Chloride 100 ml @ 200 mls/hr ONCE ONCE IV Last administered on 05/27/17at 08:33; Start 05/27/17 at 08:00; Stop 05/27/17 at 08:29; Status DC Chlorhexidine Gluconate (Chlorhexidine 2% Cloth) 3 pack UNSCH PRN TOP HYGIENIC CARE; Start 05/27/17 at 19:30 Chlorhexidine Gluconate (Peridex 0.12% Liq) 15 ml BID@08,20 MT Last administered on 05/30/17at 20:00; Start 05/27/17 at 20:00 Clonazepam (KlonoPIN) 4 mg HS PO Last administered on 06/02/17at 21:55; Start at 21:00 Dextrose/Sodium Chloride 1,000 ml @ 125 mls/hr Q8H IV Last administered on at 04:35; Start 05/28/17 at 04:45; Stop 05/29/17 at 09:29; Status DC Digoxin (Lanoxin Inj) 0.25 mg ONCE ONCE IV PUSH Last administered on at 13:57; Start 05/30/17 at 13:00; Stop 05/30/17 at 13:01; Status DC Diltiazem HCl (Cardizem Inj) 15 mg NOW ONCE IV PUSH Last administered on at 10:39; Start 05/30/17 at 10:15; Stop 05/30/17 at 10:16; Status DC Diltiazem HCl (Cardizem) 90 mg Q6HR PO Last administered on 06/03/17at 06:26; Start 05/31/17 at 21:45 Diltiazem HCl 125 mg/Sodium Chloride 125 ml @ 5 mls/hr TITRATE PRN IV Tachycardia Last administered on 05/31/17at 20:43; Start 05/30/17 at 11:00; Stop 05/31/17 at 21:42; Status DC Dorzolamide HCl (Trusopt 2% Opth Soln) 1 drop TID LEFT EYE Last administered on 06/03/17 09:35; Start 05/28/17 at 09:00 Ergocalciferol (Drisdol) 50,000 units DAILY PO Last administered on 06/03/17 09 :33; Start 05/31/17 at 09:00 Famotidine (Pepcid Inj) 20 mg Q12H IV PUSH Last administered on 05/29/17at 08:52 ; Start 05/27/17 at 21:00; Stop 05/29/17 at 09:14; Status DC Famotidine (Pepcid) 20 mg BID PO Last administered on 06/03/17 09:33; Start at 21:00 Fentanyl Citrate 250 ml @ 5 mls/hr TITRATE PRN IV SEDATION Last administered on 05/27/17 21:16; Start 05/27/17 at 20:30; Stop 05/29/17 at 09:28; Status DC Fentanyl Citrate (fentaNYL INJ) 50 mcg ONCE ONCE IV PUSH ; Start 05/27/17 at 20 :30; Stop 05/27/17 at 20:46; Status DC Ferrous Sulfate (Ferrous Sulfate Liq) 300 mg DAILY PO Last administered on 06/02 09:07; Start 05/28/17 at 09:00; Stop 06/02/17 at 09:30; Status DC Ferrous Sulfate (Ferrous Sulfate) 325 mg DAILY PO Last administered on at 09:32; Start 06/03/17 at 09:00 Guaifenesin/ Dextromethorphan (Robitussin Dm 200-20 Mg/10 ml Liq) 10 ml Q4H PRN PO COUGH; Start 05/27/17 at 10:00; Status Future Hold Heparin Sodium (Porcine) (Heparin Inj) 5,000 units Q8H SQ Last administered on 06/03/17at 04:43; Start 05/27/17 at 12:00 Hydralazine HCl (Apresoline Inj) 10 mg Q4H PRN IV PUSH SBP >160; Start at 20:45 Levofloxacin/ Dextrose 150 ml @ 100 mls/hr Q24H IV Last administered on at 10:29; Start 05/27/17 at 11:00; Stop 06/02/17 at 12:00; Status DC Levothyroxine Sodium (Synthroid) 50 mcg DAILY@0600 PO Last administered on at 06:26; Start 05/28/17 at 06:00 Magnesium Oxide (Mag-Ox) 800 mg UNSCH PRN PO For Magnesium 1.2 - 1.6 mg/dL; Start 05/27/17 at 20:45; Stop 06/02/17 at 09:29; Status DC Magnesium Sulfate 2 gm/Sodium Chloride 100 ml @ 50 mls/hr UNSCH PRN IV For Magnesium 1.2 - 1.6 mg/dL; Start 05/27/17 at 20:45; Stop 06/02/17 at 09:29; Status DC Magnesium Sulfate 4 gm/Sodium Chloride 100 ml @ 50 mls/hr UNSCH PRN IV For Magnesium 0.9 - 1.1 mg/dL; Start 05/27/17 at 20:45; Stop 06/02/17 at 09:29; Status DC Magnesium Sulfate/ Dextrose 100 ml @ 100 mls/hr ONCE ONCE IV Last administered on 05/30/17at 13:57; Start 05/30/17 at 13:00; Stop 05/30/17 at 13:59 ; Status DC Metoprolol Tartrate (Lopressor Inj) 5 mg ONCE ONCE IV PUSH Last administered on 05/30/17at 16:50; Start 05/30/17 at 16:35; Stop 05/30/17 at 16:36; Status DC Metoprolol Tartrate (Lopressor) 25 mg Q6HR PO Last administered on 06/03/17at 06: 26; Start 06/01/17 at 00:00 Midazolam HCl (Versed Inj) 10 mg ONCE ONCE IV PUSH Last administered on at 19:45; Start 05/27/17 at 19:45; Stop 05/27/17 at 19:46; Status DC Miscellaneous (Pill Splitter) 1 ea UNSCH PRN OTHER SEE LABEL COMMENTS; Start at 21:00 Miscellaneous Information SPECIFIC LAB TO BE DRAWN:[facility] TROUGH DATE TO BE DRRoro.. ONCE ONCE .XX ; Start 05/29/17 at 10:45; Stop 05/29/17 at 10:45; Status DC Morphine Sulfate (Morphine Inj) 1 mg Q6H PRN IV PUSH SEE LABEL COMMENTS Last administered on 05/30/17at 16:50; Start 05/29/17 at 14:00 Ondansetron HCl (Zofran Inj) 4 mg Q6H PRN IV PUSH NAUSEA; Start 05/27/17 at 10: 00 Oxycodone/ Acetaminophen (Percocet 5-325 Mg) 1 tab Q4H PRN PO PAIN SCALE 1-10 Last administered on 06/03/17at 09:32; Start 05/30/17 at 14:15 Patient Own Medication PT OWN MED: METHYLPHENIDATE CD 20 MG PO TID TID PO ; Start 05/28/17 at 09:00; Status Future Hold Pharmacy Profile Note 0 ml @ 0 mls/hr UNSCH OTHER ; Start 05/27/17 at 09:45; Stop 05/29/17 at 09:28; Status DC Piperacillin Sod/ Tazobactam Sod 100 ml @ 200 mls/hr Q6H IV Last administered on 05/31/17at 14:59; Start 05/27/17 at 16:00; Stop 05/31/17 at 21:42; Status DC Potassium Phosphate (K-Phos) 2,000 mg UNSCH PRN PO/TUBE SEE LABEL COMMENTS; Start 05/27/17 at 20:45; Stop 06/02/17 at 09:29; Status DC Potassium Phosphate 30 mmol/ Sodium Chloride 260 ml @ 42 mls/hr UNSCH PRN IV SEE LABEL COMMENTS; Start 05/27/17 at 20:45; Stop 06/02/17 at 09:29; Status DC Potassium Bicarb/ Potassium Chloride (K-Lyte Cl Eff) 50 meq UNSCH PRN PO For Potassium 3.3 - 3.5 mEq/L Last administered on 05/31/17at 09:00; Start 05/27/17 at 20:45; Stop 06/02/17 at 09:29; Status DC Potassium Chloride 100 ml @ 50 mls/hr Q2H PRN IV For Potassium 3.3 - 3.5 mEq/ L Last administered on 05/30/17at 12:48; Start 05/27/17 at 20:45; Stop 06/02/17 at 09:29; Status DC Propofol 100 ml @ 2.295 mls/ hr TITRATE PRN IV SEDATION Last administered on at 03:19; Start 05/27/17 at 19:30; Stop 05/29/17 at 09:28; Status DC Rocuronium [place] (Zemuron Inj) 50 mg BOLUS ONCE IV Last administered on 05/27at 19:45; Start 05/27/17 at 19:45; Stop 05/27/17 at 19:46; Status DC Sodium Chloride 1,000 ml @ 999 mls/hr BOLUS ONCE IV ; Start 05/28/17 at 09:30 ; Stop 05/28/17 at 10:30; Status DC Sodium Phosphate 30 mmol/Sodium Chloride 250 ml @ 42 mls/hr UNSCH PRN IV For Phosphorus < 2.5 mg/dL; Start 05/27/17 at 20:45; Stop 06/02/17 at 09:29; Status DC Tizanidine HCl (Zanaflex) 4 mg TID PO Last administered on 06/03/17at 09:33; Start 05/30/17 at 18:00 Valsartan (Diovan) 320 mg DAILY PO Last administered on 06/03/17at 09:33; Start 05/30/17 at 14:15 Vancomycin HCl 1000 mg/Sodium Chloride 250 ml @ 250 mls/hr Q12H IV Last administered on 05/28/17at 23:00; Start 05/27/17 at 23:00; Stop 05/29/17 at 09:28 ; Status DC Zolpidem Tartrate (Ambien) 10 mg HS PRN PO INSOMNIA Last administered on at 21:35; Start 05/30/17 at 14:15; Stop 05/31/17 at 21:42; Status DC A/P Assessment and Plan A/P Choking with aspiration into airway- resolved. Acute respiratory failure- resolved. Aspiration pneumonia/EColi continue Levaquin and neb treatment. CXR bilateral opacities-improving. ST following. Parkinson's disease Anxiety All sedation discontinued Resumes Sinemet Glaucoma Continue trusopt Atrial fibrillation with RVR -now NSR left bundle branch block Hypertension continue metoprolol,cardizem and amiodarone. echo with mildly reduced LV function- not an optimal study. 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 Iron deficiency anemia Ferrous sulfate 300 mg per OG daily Hypothyroidism Obtained TSH--> normal. Synthroid 50 mcg po daily PROPH: SCDs/continue heparin 5000 units subcutaneous every 8 hours for DVT prophylaxis. Famotidine 20 mg IV every 12 hours for stress ulcer prophylaxis. Discharge Planning rehab was offered but the patient declined. case management for [facility]. dc planning within the next one-two days if stable. Rahul Lerma MD Jun 03, 2017 11:05
[2017-06-03] MEDS: clonazePAM 1 MG TAB PO SCH (22:16)
[2017-06-04] VITALS (7 sets, daily range): BP systolic 105–130; BP diastolic 59–68; PULSE 60–83; RESP 16–20; TEMP 97.5–98.2; O2SAT 90–96
[2017-06-04] MEDS: oxyCODONE/ACETAMINOPHEN 5 MG/325 MG TAB PO PRN ×5 (03:01→22:23)
[2017-06-04] MEDS: METOPROLOL TARTRATE 25 MG TAB PO SCH ×3 (06:20→18:17)
[2017-06-04] MEDS: LEVOTHYROXINE SODIUM 50 MCG TAB PO SCH (06:20)
[2017-06-04] MEDS: DILTIAZEM HCL 90 MG TAB PO SCH ×3 (06:20→18:17)
[2017-06-04] MEDS: CHLORHEXIDINE 0.12% (ORAL KIT) 15 ML CUP MT SCH ×2 (08:00→20:00)
[2017-06-04] MEDS: VALSARTAN 160 MG TAB PO SCH (08:52)
[2017-06-04] MEDS: CARBIDOPA/LEVODOPA 25 MG/100 MG TAB PO SCH ×2 (08:52→20:59)
[2017-06-04] MEDS: FERROUS SULFATE 325 MG (65 MG ELEMENTAL IRON) TAB PO SCH (08:53)
[2017-06-04] MEDS: FAMOTIDINE 20 MG TAB PO SCH ×2 (08:53→20:59)
[2017-06-04] MEDS: RIVAROXABAN 20 MG TAB PO SCH (08:53)
[2017-06-04] MEDS: AMIODARONE 200 MG TAB PO SCH (08:53)
[2017-06-04] MEDS: DORZOLAMIDE 2% OPTH SOLN 200 DROP/10 ML BTLO LEFT EYE SCH ×3 (08:54→18:00)
[2017-06-04] MEDS: ERGOCALCIFEROL (VIT D2) 50,000 UNIT CAP PO SCH (09:01)
--- NOTE | 2017-06-04 09:30 | PQ ---
Physician Query Response Document PATIENT: ROBBY TENORIO : 1945 ADMIT DATE: 05/27/2017 9:37 AM DISCH DATE: RESPONDING PROVIDER #: [email or web address] QUERY TEXT: CDS Clarification Sepsis POA in the setting of respiratory failure and aspiration pneumonia treated with IV Zosyn, Vanc omycin, Rocephin and Zithromax Other explanation of clinical findings. Unable to determine (no explanation for clinical findings). The medical record reflects the following clinical findings, treatment, and risk factors. * Clinical Indicators Acute respiratory failure w hypoxia req oxygen per EMS and resp 22, HR 95 Band Neutrophils 29% * Risk Factors Recurrent PNA Respiratory failure * Treatment IV Zosyn, Vancomycin, Rocephin and Zithromax, IV fluids 125cc/hr The patient's Clinical Indicators include: Please clarify and document your clinical opinion in the progress notes and discharge summary includi ng the definitive and/or presumptive diagnosis (suspected or probable), related to the above clinical findings. Please include clinical findings supporting your diagnosis. Thank you, Jesusita Butler CDS: Jesusita Butler Patient Unit: [facility] Contact Number: BRANDIE/RN ext. [phone] Room: [facility] Query created by: Jesusita Butler on 05/30/2017 7:57 AM RESPONSE TEXT: Patient has sepsis from aspiration pneumonia Electronically signed by: Bryan Marroquin MD 06/03/2017 3:51 PM
--- NOTE | 2017-06-04 09:46 | HHI.PR ---
Subjective Remarks in no acute distress. stable off oxygen. no sob or fever. wants to go home. no new complaints. Objective Vitals Vital Signs Date Time Temp Pulse Resp B/P (MAP) Pulse Ox O2 Delivery O2 Flow Rate FiO2 06/04/17 08:00 97.5 75 16 111/68 (82) 92 06/04/17 06:19 83 119/65 (83) 06/04/17 04:00 60 20 127/61 (83) 96 06/04/17 00:00 97.7 69 20 130/64 (86) 94 06/03/17 22:07 68 132/62 (85) 06/03/17 20:00 97.7 53 20 106/58 (74) 96 06/03/17 18:06 92 21 06/03/17 16:02 61 06/03/17 16:00 97.1 61 18 101/55 (70) 93 06/03/17 12:08 75 06/03/17 12:00 98.0 83 17 128/72 (90) 92 I/O 06/03/17 06/03/17 06/03/17 06/04/17 06/04/17 06/04/17 07:00 15:00 23:00 07:00 15:00 23:00 Intake Total 2000 ml 1660 ml 360 ml Output Total 2000 ml 850 ml 400 ml 2375 ml Balance 0 ml -850 ml 1260 ml -2015 ml Intake Oral 2000 ml 1660 ml 360 ml Output Urine Total 2000 ml 850 ml 400 ml 2375 ml # Bowel Movements 0 3 Result Diagram: 05/31/17 0337 06/02/17 0703 Imaging Last Impressions Chest X-Ray 05/31/17 0600 Signed Impressions: Service Date/Time: May 03:04 - CONCLUSION: Better aeration of lungs with minimal left basilar density. Right lung base has cleared. Miguelito Brooke MD Modified Barium Swallow 05/30/17 0000 Signed Impressions: Service Date/Time: Tuesday, May 30, 2017 11:47 - CONCLUSION: Trace of penetration into the upper airway. Daniel Euceda MD Objective Remarks GENERAL: This is a well-nourished, well-developed patient, in no apparent distress. CARDIOVASCULAR: Regular rate and regular rhythm without murmurs, gallops, or rubs. RESPIRATORY: Clear to auscultation. Breath sounds equal bilaterally. No wheezes , rales, or rhonchi. GASTROINTESTINAL: Abdomen soft, non-tender, nondistended. Normal, active bowel sounds MUSCULOSKELETAL: Extremities without clubbing, cyanosis, or edema. NEURO: Alert & Oriented x4 to person, place, time, situation. Moves all ext x4 Procedures intubation/ bronchoscopy. Medications and IVs Inpatient Medications Acetaminophen 65 ml @ 260 mls/hr NOW ONCE IV Last administered on 05/29/17at 11:39; Start 05/29/17 at 12:00; Stop 05/29/17 at 12:14; Status DC Acetaminophen (Tylenol) 650 mg Q6H PRN PO PAIN LEVEL 1 TO 3; Start 05/27/17 at 17:00; Stop 05/30/17 at 14:47; Status DC Acetaminophen/ Hydrocodone Bitart ([place] 5-325 Mg) 1 tab Q6H PRN PO PAIN SCALE 4 TO 10 Last administered on 05/27/17at 17:27; Start 05/27/17 at 17:00; Stop 05/30/17 at 14:47; Status DC Albuterol/ Ipratropium (Duoneb Neb) 1 ampule ONCE ONCE NEB Last administered on 05/27/17at 22:01; Start 05/27/17 at 22:00; Stop 05/27/17 at 22:01; Status DC Amiodarone HCl (Cordarone) 200 mg DAILY PO Last administered on 06/04/17at 08:53 ; Start 06/04/17 at 09:00 Amiodarone HCl 150 mg/Dextrose 103 ml @ 600 mls/hr Q11M ONCE IV Last administered on 05/30/17at 16:47; Start 05/30/17 at 16:04; Stop 05/30/17 at 16:23 ; Status DC Amiodarone HCl 450 mg/Sodium Chloride 250 ml @ 33.33 mls/ hr Q7H31M PRN IV Per Protocol Last administered on 05/31/17at 13:14; Start 05/30/17 at 16:14; Stop at 21:42; Status DC Amlodipine Besylate (Norvasc) 2.5 mg DAILY PO Last administered on 06/02/17at 09 :08; Start 05/27/17 at 20:45; Status Future Hold Aspirin (Aspirin Supp) 300 mg ONCE ONCE RECTAL Last administered on 05/28/17at 06:01; Start 05/28/17 at 04:45; Stop 05/28/17 at 04:55; Status DC Azithromycin 500 mg/Sodium Chloride 250 ml @ 250 mls/hr ONCE ONCE IV ; Start 05/27/17 at 08:00; Stop 05/27/17 at 09:30; Status DC Carbidopa/Levodopa (Sinemet 25-100 Mg) 2 tab BID PO Last administered on at 08:52; Start 05/27/17 at 21:00 Ceftriaxone Sodium 1000 mg/ Sodium Chloride 100 ml @ 200 mls/hr ONCE ONCE IV Last administered on 05/27/17at 08:33; Start 05/27/17 at 08:00; Stop 05/27/17 at 08:29; Status DC Chlorhexidine Gluconate (Chlorhexidine 2% Cloth) 3 pack UNSCH PRN TOP HYGIENIC CARE; Start 05/27/17 at 19:30 Chlorhexidine Gluconate (Peridex 0.12% Liq) 15 ml BID@08,20 MT Last administered on 05/30/17at 20:00; Start 05/27/17 at 20:00 Clonazepam (KlonoPIN) 4 mg HS PO Last administered on 06/03/17at 22:16; Start at 21:00 Dextrose/Sodium Chloride 1,000 ml @ 125 mls/hr Q8H IV Last administered on at 04:35; Start 05/28/17 at 04:45; Stop 05/29/17 at 09:29; Status DC Digoxin (Lanoxin Inj) 0.25 mg ONCE ONCE IV PUSH Last administered on at 13:57; Start 05/30/17 at 13:00; Stop 05/30/17 at 13:01; Status DC Diltiazem HCl (Cardizem Inj) 15 mg NOW ONCE IV PUSH Last administered on at 10:39; Start 05/30/17 at 10:15; Stop 05/30/17 at 10:16; Status DC Diltiazem HCl (Cardizem) 90 mg Q6HR PO Last administered on 06/04/17at 06:20; Start 05/31/17 at 21:45 Diltiazem HCl 125 mg/Sodium Chloride 125 ml @ 5 mls/hr TITRATE PRN IV Tachycardia Last administered on 05/31/17at 20:43; Start 05/30/17 at 11:00; Stop 05/31/17 at 21:42; Status DC Dorzolamide HCl (Trusopt 2% Opth Soln) 1 drop TID LEFT EYE Last administered on 06/04/17 08:54; Start 05/28/17 at 09:00 Ergocalciferol (Drisdol) 50,000 units DAILY PO Last administered on 06/04/17 09 :01; Start 05/31/17 at 09:00 Famotidine (Pepcid Inj) 20 mg Q12H IV PUSH Last administered on 05/29/17 08:52 ; Start 05/27/17 at 21:00; Stop 05/29/17 at 09:14; Status DC Famotidine (Pepcid) 20 mg BID PO Last administered on 06/04/17 08:53; Start at 21:00 Fentanyl Citrate 250 ml @ 5 mls/hr TITRATE PRN IV SEDATION Last administered on 05/27/17at 21:16; Start 05/27/17 at 20:30; Stop 05/29/17 at 09:28; Status DC Fentanyl Citrate (fentaNYL INJ) 50 mcg ONCE ONCE IV PUSH ; Start 05/27/17 at 20 :30; Stop 05/27/17 at 20:46; Status DC Ferrous Sulfate (Ferrous Sulfate Liq) 300 mg DAILY PO Last administered on 06/02at 09:07; Start 05/28/17 at 09:00; Stop 06/02/17 at 09:30; Status DC Ferrous Sulfate (Ferrous Sulfate) 325 mg DAILY PO Last administered on at 08:53; Start 06/03/17 at 09:00 Guaifenesin/ Dextromethorphan (Robitussin Dm 200-20 Mg/10 ml Liq) 10 ml Q4H PRN PO COUGH; Start 05/27/17 at 10:00; Status Future Hold Heparin Sodium (Porcine) (Heparin Inj) 5,000 units Q8H SQ Last administered on 06/03/17at 12:52; Start 05/27/17 at 12:00; Stop 06/03/17 at 18:00; Status DC Hydralazine HCl (Apresoline Inj) 10 mg Q4H PRN IV PUSH SBP >160; Start at 20:45 Levofloxacin/ Dextrose 150 ml @ 100 mls/hr Q24H IV Last administered on at 10:29; Start 05/27/17 at 11:00; Stop 06/02/17 at 12:00; Status DC Levothyroxine Sodium (Synthroid) 50 mcg DAILY@0600 PO Last administered on at 06:20; Start 05/28/17 at 06:00 Magnesium Oxide (Mag-Ox) 800 mg UNSCH PRN PO For Magnesium 1.2 - 1.6 mg/dL; Start 05/27/17 at 20:45; Stop 06/02/17 at 09:29; Status DC Magnesium Sulfate 2 gm/Sodium Chloride 100 ml @ 50 mls/hr UNSCH PRN IV For Magnesium 1.2 - 1.6 mg/dL; Start 05/27/17 at 20:45; Stop 06/02/17 at 09:29; Status DC Magnesium Sulfate 4 gm/Sodium Chloride 100 ml @ 50 mls/hr UNSCH PRN IV For Magnesium 0.9 - 1.1 mg/dL; Start 05/27/17 at 20:45; Stop 06/02/17 at 09:29; Status DC Magnesium Sulfate/ Dextrose 100 ml @ 100 mls/hr ONCE ONCE IV Last administered on 05/30/17at 13:57; Start 05/30/17 at 13:00; Stop 05/30/17 at 13:59 ; Status DC Metoprolol Tartrate (Lopressor Inj) 5 mg ONCE ONCE IV PUSH Last administered on 05/30/17at 16:50; Start 05/30/17 at 16:35; Stop 05/30/17 at 16:36; Status DC Metoprolol Tartrate (Lopressor) 25 mg Q6HR PO Last administered on 06/04/17at 06: 20; Start 06/01/17 at 00:00 Midazolam HCl (Versed Inj) 10 mg ONCE ONCE IV PUSH Last administered on at 19:45; Start 05/27/17 at 19:45; Stop 05/27/17 at 19:46; Status DC Miscellaneous (Pill Splitter) 1 ea UNSCH PRN OTHER SEE LABEL COMMENTS; Start at 21:00 Miscellaneous Information SPECIFIC LAB TO BE DRAWN:[facility] DATE TO BE [facility]. ONCE ONCE .XX ; Start 05/29/17 at 10:45; Stop 05/29/17 at 10:45; Status DC Morphine Sulfate (Morphine Inj) 1 mg Q6H PRN IV PUSH SEE LABEL COMMENTS Last administered on 05/30/17at 16:50; Start 05/29/17 at 14:00 Ondansetron HCl (Zofran Inj) 4 mg Q6H PRN IV PUSH NAUSEA; Start 05/27/17 at 10: 00 Oxycodone/ Acetaminophen (Percocet 5-325 Mg) 1 tab Q4H PRN PO PAIN SCALE 1-10 Last administered on 06/04/17at 06:51; Start 05/30/17 at 14:15 Patient Own Medication PT OWN MED: METHYLPHENIDATE CD 20 MG PO TID TID PO ; Start 05/28/17 at 09:00; Status Future Hold Pharmacy Profile Note 0 ml @ 0 mls/hr UNSCH OTHER ; Start 05/27/17 at 09:45; Stop 05/29/17 at 09:28; Status DC Piperacillin Sod/ Tazobactam Sod 100 ml @ 200 mls/hr Q6H IV Last administered on 05/31/17at 14:59; Start 05/27/17 at 16:00; Stop 05/31/17 at 21:42; Status DC Potassium Phosphate (K-Phos) 2,000 mg UNSCH PRN PO/TUBE SEE LABEL COMMENTS; Start 05/27/17 at 20:45; Stop 06/02/17 at 09:29; Status DC Potassium Phosphate 30 mmol/ Sodium Chloride 260 ml @ 42 mls/hr UNSCH PRN IV SEE LABEL COMMENTS; Start 05/27/17 at 20:45; Stop 06/02/17 at 09:29; Status DC Potassium Bicarb/ Potassium Chloride (K-Lyte Cl Eff) 50 meq UNSCH PRN PO For Potassium 3.3 - 3.5 mEq/L Last administered on 05/31/17at 09:00; Start 05/27/17 at 20:45; Stop 06/02/17 at 09:29; Status DC Potassium Chloride 100 ml @ 50 mls/hr Q2H PRN IV For Potassium 3.3 - 3.5 mEq/ L Last administered on 05/30/17at 12:48; Start 05/27/17 at 20:45; Stop 06/02/17 at 09:29; Status DC Propofol 100 ml @ 2.295 mls/ hr TITRATE PRN IV SEDATION Last administered on at 03:19; Start 05/27/17 at 19:30; Stop 05/29/17 at 09:28; Status DC Rivaroxaban (Xarelto) 20 mg DAILY PO Last administered on 06/04/17at 08:53; Start 06/04/17 at 09:00 Rocuronium [place] (Zemuron Inj) 50 mg BOLUS ONCE IV Last administered on 05/27at 19:45; Start 05/27/17 at 19:45; Stop 05/27/17 at 19:46; Status DC Sodium Chloride 1,000 ml @ 999 mls/hr BOLUS ONCE IV ; Start 05/28/17 at 09:30 ; Stop 05/28/17 at 10:30; Status DC Sodium Phosphate 30 mmol/Sodium Chloride 250 ml @ 42 mls/hr UNSCH PRN IV For Phosphorus < 2.5 mg/dL; Start 05/27/17 at 20:45; Stop 06/02/17 at 09:29; Status DC Tizanidine HCl (Zanaflex) 4 mg TID PO Last administered on 06/04/17 08:52; Start 05/30/17 at 18:00 Valsartan (Diovan) 320 mg DAILY PO Last administered on 06/04/17 08:52; Start 05/30/17 at 14:15 Vancomycin HCl 1000 mg/Sodium Chloride 250 ml @ 250 mls/hr Q12H IV Last administered on 05/28/17at 23:00; Start 05/27/17 at 23:00; Stop 05/29/17 at 09:28 ; Status DC Zolpidem Tartrate (Ambien) 10 mg HS PRN PO INSOMNIA Last administered on at 21:35; Start 05/30/17 at 14:15; Stop 05/31/17 at 21:42; Status DC A/P Assessment and Plan A/P Choking with aspiration into airway- resolved. Acute respiratory failure- resolved. Aspiration pneumonia/EColi finished the course of the antibiotic. CXR bilateral opacities-improving. ST following. Parkinson's disease Anxiety All sedation discontinued Resumed Sinemet Glaucoma Continue trusopt Atrial fibrillation with RVR -now NSR left bundle branch block Hypertension continue metoprolol,cardizem and amiodarone. echo with mildly reduced LV function- not an optimal study. 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 Hypothyroidism Obtained TSH--> normal. Synthroid 50 mcg po daily Discharge Planning rehab was offered but the patient declined. case management for [facility]. dc home today. see med list. f/u; pcp and cardiology. d/w the patient. time spent 35 min. Rahul Lerma MD Jun 04, 2017 09:46
[2017-06-04] MEDS ORDERED: XARE20TA PO (09:50)
[2017-06-04] MEDS ORDERED: AMIO200T PO (09:50)
[2017-06-04] MEDS ORDERED: METO25TA3 PO (09:50)
[2017-06-04] MEDS ORDERED: CARD180C5 PO (09:50)
--- NOTE | 2017-06-04 09:51 | HHI.DS ---
Discharge Summary Admission Date May 27, 2017 at 09:37 Discharge Date: Jun 05, 2017 Admitting Diagnosis Pneumonia, Hypoxic Resp failure. (1) Atrial fibrillation with RVR ICD Code: I48.91 - Unspecified atrial fibrillation Diagnosis: Principal (2) Pneumonia ICD Code: J18.9 - Pneumonia, unspecified organism Diagnosis: Principal Status: Acute Procedures intubation/ bronchoscopy. Brief History - From Admission 71 years old male admitted to the ED with worsening short of breath and cough with dark brownish sputum for the last 3-4 days, patient has a history of Parkinson disease and recurrent pneumonia, he told me last pneumonia he had was 2 years ago, also he stated he was prescribed recently and Zithromax for what he stated "UTI urine infection ", patient denied fever or chills chest pain, no abdominal pain diarrhea constipation, dysuria urgency or frequency CBC/BMP: 05/31/17 0337 06/02/17 0703 Significant Findings Laboratory Tests Test 06/02/17 07:03 Calcium Level 8.4 MG/DL (8.5-10.1) Chloride Level 108 MEQ/L (98-107) Estimat Glomerular Filtration Rate 78 ML/MIN (>89) Imaging Last Impressions Chest X-Ray 05/31/17 0600 Signed Impressions: Service Date/Time: May 03:04 - CONCLUSION: Better aeration of lungs with minimal left basilar density. Right lung base has cleared. Miguelito Brooke MD Modified Barium Swallow 05/30/17 0000 Signed Impressions: Service Date/Time: Tuesday, May 30, 2017 11:47 - CONCLUSION: Trace of penetration into the upper airway. Daniel Euceda MD PE at Discharge GENERAL: This is a well-nourished, well-developed patient, in no apparent distress. CARDIOVASCULAR: Regular rate and regular rhythm without murmurs, gallops, or rubs. RESPIRATORY: Clear to auscultation. Breath sounds equal bilaterally. No wheezes , rales, or rhonchi. GASTROINTESTINAL: Abdomen soft, non-tender, nondistended. Normal, active bowel sounds MUSCULOSKELETAL: Extremities without clubbing, cyanosis, or edema. NEURO: Alert & Oriented x4 to person, place, time, situation. Moves all ext x4 Hospital Course Choking with aspiration into airway- resolved. Acute respiratory failure- resolved. Aspiration pneumonia/EColi finished the course of the antibiotic. CXR bilateral opacities-improving. of note , yeast was reported in bronchial washing; this was d/w ; recommended outpatient f/u. Parkinson's disease Anxiety All sedation discontinued Resumed Sinemet Glaucoma Continue trusopt Atrial fibrillation with RVR -now NSR left bundle branch block elevated troponin Hypertension continue metoprolol,cardizem and amiodarone. echo with mildly reduced LV function- not an optimal study. cardiology consult appreciated; outpatient f/u with cardiology; d/w the patient and his . Hypothyroidism Obtained TSH--> normal. Synthroid 50 mcg po daily the note was updated on 06/05/17. Pt Condition on Discharge: Fair Discharge Disposition: Discharge to SNF Discharge Time: > 30 minutes Discharge Instructions DIET: Follow Instructions for: Heart Healthy Diet Activities you can perform: Regular-No Restrictions Rahul Lerma MD Jun 04, 2017 09:51
--- NOTE | 2017-06-04 14:44 | MB ---
cc: Pauline Ugalde MD DATE: 06/04/2017 HISTORY OF PRESENT ILLNESS: Mr. Steinberg is a 71-year-old white male with history of Parkinson disease and a previous history of pneumonia, presented with shortness of breath and cough productive of dark brown sputum. He was intubated and transferred to the ICU, underwent diagnostic and therapeutic bronchoscopy. He was given antibiotics for his pneumonia. He was diagnosed with aspiration pneumonia. PAST MEDICAL HISTORY: Positive for Parkinson disease, recurrent pneumonia, hypertension, left bundle branch block, iron deficiency anemia, hypothyroidism, anxiety, duodenal ulcer, gastritis, chronic ulcers, history of lung wedge biopsy, right upper and lower lobe, left carpal tunnel surgery, right wrist surgery, right scaphoid ossicle excision. MEDICATIONS: Include Xarelto, amiodarone 200 mg a day, iron, metoprolol, diltiazem, ergocalciferol, clonazepam, Zanaflex, Percocet, valsartan, Pepcid, Trusopt eyedrops, Synthroid, Sinemet. ALLERGIES: TRAMADOL. SOCIAL HISTORY: The patient does not smoke. No alcohol. He is accompanied by his . FAMILY HISTORY: Positive for heart disease in his brother. REVIEW OF SYSTEMS: Otherwise negative. PHYSICAL EXAMINATION: VITAL SIGNS: Blood pressure 105/64, pulse 65 and regular. HEENT: Negative. NECK: 2+ carotids upstrokes, no bruits. LUNGS: Clear. HEART: Regular with no murmur or gallop. ABDOMEN: Soft. No bruits. EXTREMITIES: Without edema, 2+ pulses. NEUROLOGIC: Grossly nonfocal. DIAGNOSTIC DATA: EKG was reviewed and showed a sinus rhythm. EKG on 05/30 showed atrial flutter with 2:1 block and left bundle branch block. The patient subsequently converted to sinus rhythm and stayed in SR. He was started on amiodarone. LABORATORY DATA: Hemoglobin 12.9. Potassium 3.7, creatinine 1.0, AST 21, ALT 13. TSH 1.5. Echocardiogram showed borderline normal left ventricular systolic function, normal left ventricle size, trace tricuspid regurgitation, and no evidence of pulmonary hypertension. DIAGNOSES: 1. Paroxysmal atrial fibrillation with rapid ventricular response. 2. Pneumonia. 3. Acute respiratory failure. 4. Parkinson's disease. 5. Hypertension. 6. Left bundle branch block. DISPOSITION: Mr. Steinberg stayed in sinus rhythm on amiodarone. Recommend to continue antiarrhythmic therapy with amiodarone 200 mg a day. I also recommend to continue anticoagulation with Xarelto. His troponin was slightly elevated and peaked at 0.64. He has not had any angina. I recommend outpatient nuclear myocardial perfusion study to evaluate for ischemia. His wishes him to see Dr. Gutierrez. I recommended the patient to schedule an appointment with Dr. Gutierrez shortly after discharge. MD BENIGNO Harrison/RUIZ , 02:16 PM , 02:42 PM MAURISIO
[2017-06-04] MEDS: clonazePAM 1 MG TAB PO SCH (20:59)
[2017-06-05] VITALS: BP 132/69; PULSE 73; RESP 18; TEMP 97.8; O2SAT 95
[2017-06-05] MEDS: METOPROLOL TARTRATE 25 MG TAB PO SCH ×2 (00:52→06:00)
[2017-06-05] MEDS: DILTIAZEM HCL 90 MG TAB PO SCH ×2 (00:52→06:00)
[2017-06-05] MEDS: CHLORHEXIDINE GLUCONATE 2 % 1 PACK (2 CLOTHS) TOP SCH (03:34)
[2017-06-05] MEDS: oxyCODONE/ACETAMINOPHEN 5 MG/325 MG TAB PO PRN ×2 (03:34→09:32)
[2017-06-05] MEDS: LEVOTHYROXINE SODIUM 50 MCG TAB PO SCH (06:00)
[2017-06-05] MEDS: CHLORHEXIDINE 0.12% (ORAL KIT) 15 ML CUP MT SCH (07:30)
[2017-06-05 08:00] VITALS: BP 105/60; PULSE 60; RESP 18; TEMP 97.8; O2SAT 98
--- NOTE | 2017-06-05 08:54 | HHI.PR ---
Subjective Remarks in no acute distress. afebrile. no pain or sob. no new complaints. Objective Vitals Vital Signs Date Time Temp Pulse Resp B/P (MAP) Pulse Ox O2 Delivery O2 Flow Rate FiO2 06/05/17 08:00 97.8 60 18 105/60 (75) 98 06/05/17 00:00 97.8 73 18 132/69 (90) 95 06/04/17 21:02 21 06/04/17 20:00 98.2 70 18 106/59 (75) 90 06/04/17 12:00 97.6 65 18 105/64 (78) 94 06/04/17 09:20 92 21 I/O 06/04/17 06/04/17 06/04/17 06/05/17 06/05/17 06/05/17 07:00 15:00 23:00 07:00 15:00 23:00 Intake Total 360 ml 800 ml Output Total 2375 ml 1400 ml Balance -2015 ml -600 ml Intake Oral 360 ml 800 ml Output Urine Total 2375 ml 1400 ml # Bowel Movements 2 2 Result Diagram: 06/02/17 0703 Imaging Last Impressions Chest X-Ray 05/31/17 0600 Signed Impressions: Service Date/Time: May 03:04 - CONCLUSION: Better aeration of lungs with minimal left basilar density. Right lung base has cleared. Miguelito Brooke MD Modified Barium Swallow 05/30/17 0000 Signed Impressions: Service Date/Time: Tuesday, May 30, 2017 11:47 - CONCLUSION: Trace of penetration into the upper airway. Daniel Euceda MD Objective Remarks GENERAL: This is a well-nourished, well-developed patient, in no apparent distress. CARDIOVASCULAR: Regular rate and regular rhythm without murmurs, gallops, or rubs. RESPIRATORY: Clear to auscultation. Breath sounds equal bilaterally. No wheezes , rales, or rhonchi. GASTROINTESTINAL: Abdomen soft, non-tender, nondistended. Normal, active bowel sounds MUSCULOSKELETAL: Extremities without clubbing, cyanosis, or edema. NEURO: Alert & Oriented x4 to person, place, time, situation. Moves all ext x4 Procedures intubation/ bronchoscopy. Medications and IVs Inpatient Medications Acetaminophen 65 ml @ 260 mls/hr NOW ONCE IV Last administered on 05/29/17at 11:39; Start 05/29/17 at 12:00; Stop 05/29/17 at 12:14; Status DC Acetaminophen (Tylenol) 650 mg Q6H PRN PO PAIN LEVEL 1 TO 3; Start 05/27/17 at 17:00; Stop 05/30/17 at 14:47; Status DC Acetaminophen/ Hydrocodone Bitart (Martin 5-325 Mg) 1 tab Q6H PRN PO PAIN SCALE 4 TO 10 Last administered on 05/27/17at 17:27; Start 05/27/17 at 17:00; Stop 05/30/17 at 14:47; Status DC Albuterol/ Ipratropium (Duoneb Neb) 1 ampule ONCE ONCE NEB Last administered on 05/27/17at 22:01; Start 05/27/17 at 22:00; Stop 05/27/17 at 22:01; Status DC Amiodarone HCl (Cordarone) 200 mg DAILY PO Last administered on 06/04/17at 08:53 ; Start 06/04/17 at 09:00 Amiodarone HCl 150 mg/Dextrose 103 ml @ 600 mls/hr Q11M ONCE IV Last administered on 05/30/17at 16:47; Start 05/30/17 at 16:04; Stop 05/30/17 at 16:23 ; Status DC Amiodarone HCl 450 mg/Sodium Chloride 250 ml @ 33.33 mls/ hr Q7H31M PRN IV Per Protocol Last administered on 05/31/17at 13:14; Start 05/30/17 at 16:14; Stop at 21:42; Status DC Amlodipine Besylate (Norvasc) 2.5 mg DAILY PO Last administered on 06/02/17at 09 :08; Start 05/27/17 at 20:45; Status Future Hold Aspirin (Aspirin Supp) 300 mg ONCE ONCE RECTAL Last administered on 05/28/17at 06:01; Start 05/28/17 at 04:45; Stop 05/28/17 at 04:55; Status DC Azithromycin 500 mg/Sodium Chloride 250 ml @ 250 mls/hr ONCE ONCE IV ; Start 05/27/17 at 08:00; Stop 05/27/17 at 09:30; Status DC Carbidopa/Levodopa (Sinemet 25-100 Mg) 2 tab BID PO Last administered on 20:59; Start 05/27/17 at 21:00 Ceftriaxone Sodium 1000 mg/ Sodium Chloride 100 ml @ 200 mls/hr ONCE ONCE IV Last administered on 05/27/17 08:33; Start 05/27/17 at 08:00; Stop 05/27/17 at 08:29; Status DC Chlorhexidine Gluconate (Chlorhexidine 2% Cloth) 3 pack UNSCH PRN TOP HYGIENIC CARE; Start 05/27/17 at 19:30 Chlorhexidine Gluconate (Peridex 0.12% Liq) 15 ml BID@08,20 MT Last administered on 05/30/17 20:00; Start 05/27/17 at 20:00 Clonazepam (KlonoPIN) 4 mg HS PO Last administered on 06/04/17 20:59; Start at 21:00 Dextrose/Sodium Chloride 1,000 ml @ 125 mls/hr Q8H IV Last administered on at 04:35; Start 05/28/17 at 04:45; Stop 05/29/17 at 09:29; Status DC Digoxin (Lanoxin Inj) 0.25 mg ONCE ONCE IV PUSH Last administered on 13:57; Start 05/30/17 at 13:00; Stop 05/30/17 at 13:01; Status DC Diltiazem HCl (Cardizem Inj) 15 mg NOW ONCE IV PUSH Last administered on at 10:39; Start 05/30/17 at 10:15; Stop 05/30/17 at 10:16; Status DC Diltiazem HCl (Cardizem) 90 mg Q6HR PO Last administered on 06/05/17 06:00; Start 05/31/17 at 21:45 Diltiazem HCl 125 mg/Sodium Chloride 125 ml @ 5 mls/hr TITRATE PRN IV Tachycardia Last administered on 05/31/17 20:43; Start 05/30/17 at 11:00; Stop 05/31/17 at 21:42; Status DC Dorzolamide HCl (Trusopt 2% Opth Soln) 1 drop TID LEFT EYE Last administered on 06/04/17 12:51; Start 05/28/17 at 09:00 Ergocalciferol (Drisdol) 50,000 units DAILY PO Last administered on 06/04/17at 09 :01; Start 05/31/17 at 09:00 Famotidine (Pepcid Inj) 20 mg Q12H IV PUSH Last administered on 05/29/17at 08:52 ; Start 05/27/17 at 21:00; Stop 05/29/17 at 09:14; Status DC Famotidine (Pepcid) 20 mg BID PO Last administered on 06/04/17at 20:59; Start at 21:00 Fentanyl Citrate 250 ml @ 5 mls/hr TITRATE PRN IV SEDATION Last administered on 05/27/17at 21:16; Start 05/27/17 at 20:30; Stop 05/29/17 at 09:28; Status DC Fentanyl Citrate (fentaNYL INJ) 50 mcg ONCE ONCE IV PUSH ; Start 05/27/17 at 20 :30; Stop 05/27/17 at 20:46; Status DC Ferrous Sulfate (Ferrous Sulfate Liq) 300 mg DAILY PO Last administered on 06/02at 09:07; Start 05/28/17 at 09:00; Stop 06/02/17 at 09:30; Status DC Ferrous Sulfate (Ferrous Sulfate) 325 mg DAILY PO Last administered on at 08:53; Start 06/03/17 at 09:00 Guaifenesin/ Dextromethorphan (Robitussin Dm 200-20 Mg/10 ml Liq) 10 ml Q4H PRN PO COUGH; Start 05/27/17 at 10:00; Status Future Hold Heparin Sodium (Porcine) (Heparin Inj) 5,000 units Q8H SQ Last administered on 06/03/17at 12:52; Start 05/27/17 at 12:00; Stop 06/03/17 at 18:00; Status DC Hydralazine HCl (Apresoline Inj) 10 mg Q4H PRN IV PUSH SBP >160; Start at 20:45 Levofloxacin/ Dextrose 150 ml @ 100 mls/hr Q24H IV Last administered on at 10:29; Start 05/27/17 at 11:00; Stop 06/02/17 at 12:00; Status DC Levothyroxine Sodium (Synthroid) 50 mcg DAILY@0600 PO Last administered on at 06:00; Start 05/28/17 at 06:00 Magnesium Oxide (Mag-Ox) 800 mg UNSCH PRN PO For Magnesium 1.2 - 1.6 mg/dL; Start 05/27/17 at 20:45; Stop 06/02/17 at 09:29; Status DC Magnesium Sulfate 2 gm/Sodium Chloride 100 ml @ 50 mls/hr UNSCH PRN IV For Magnesium 1.2 - 1.6 mg/dL; Start 05/27/17 at 20:45; Stop 06/02/17 at 09:29; Status DC Magnesium Sulfate 4 gm/Sodium Chloride 100 ml @ 50 mls/hr UNSCH PRN IV For Magnesium 0.9 - 1.1 mg/dL; Start 05/27/17 at 20:45; Stop 06/02/17 at 09:29; Status DC Magnesium Sulfate/ Dextrose 100 ml @ 100 mls/hr ONCE ONCE IV Last administered on 05/30/17at 13:57; Start 05/30/17 at 13:00; Stop 05/30/17 at 13:59 ; Status DC Metoprolol Tartrate (Lopressor Inj) 5 mg ONCE ONCE IV PUSH Last administered on 05/30/17at 16:50; Start 05/30/17 at 16:35; Stop 05/30/17 at 16:36; Status DC Metoprolol Tartrate (Lopressor) 25 mg Q6HR PO Last administered on 06/05/17at 06: 00; Start 06/01/17 at 00:00 Midazolam HCl (Versed Inj) 10 mg ONCE ONCE IV PUSH Last administered on at 19:45; Start 05/27/17 at 19:45; Stop 05/27/17 at 19:46; Status DC Miscellaneous (Pill Splitter) 1 ea UNSCH PRN OTHER SEE LABEL COMMENTS; Start at 21:00 Miscellaneous Information SPECIFIC LAB TO BE DRAWN:[facility] DATE TO BE DRRoro.. ONCE ONCE .XX ; Start 05/29/17 at 10:45; Stop 05/29/17 at 10:45; Status DC Morphine Sulfate (Morphine Inj) 1 mg Q6H PRN IV PUSH SEE LABEL COMMENTS Last administered on 05/30/17at 16:50; Start 05/29/17 at 14:00 Ondansetron HCl (Zofran Inj) 4 mg Q6H PRN IV PUSH NAUSEA; Start 05/27/17 at 10: 00 Oxycodone/ Acetaminophen (Percocet 5-325 Mg) 1 tab Q4H PRN PO PAIN SCALE 1-10 Last administered on 06/05/17at 03:34; Start 05/30/17 at 14:15 Patient Own Medication PT OWN MED: METHYLPHENIDATE CD 20 MG PO TID TID PO ; Start 05/28/17 at 09:00; Status Future Hold Pharmacy Profile Note 0 ml @ 0 mls/hr UNSCH OTHER ; Start 05/27/17 at 09:45; Stop 05/29/17 at 09:28; Status DC Piperacillin Sod/ Tazobactam Sod 100 ml @ 200 mls/hr Q6H IV Last administered on 05/31/17at 14:59; Start 05/27/17 at 16:00; Stop 05/31/17 at 21:42; Status DC Potassium Phosphate (K-Phos) 2,000 mg UNSCH PRN PO/TUBE SEE LABEL COMMENTS; Start 05/27/17 at 20:45; Stop 06/02/17 at 09:29; Status DC Potassium Phosphate 30 mmol/ Sodium Chloride 260 ml @ 42 mls/hr UNSCH PRN IV SEE LABEL COMMENTS; Start 05/27/17 at 20:45; Stop 06/02/17 at 09:29; Status DC Potassium Bicarb/ Potassium Chloride (K-Lyte Cl Eff) 50 meq UNSCH PRN PO For Potassium 3.3 - 3.5 mEq/L Last administered on 05/31/17at 09:00; Start 05/27/17 at 20:45; Stop 06/02/17 at 09:29; Status DC Potassium Chloride 100 ml @ 50 mls/hr Q2H PRN IV For Potassium 3.3 - 3.5 mEq/ L Last administered on 05/30/17at 12:48; Start 05/27/17 at 20:45; Stop 06/02/17 at 09:29; Status DC Propofol 100 ml @ 2.295 mls/ hr TITRATE PRN IV SEDATION Last administered on at 03:19; Start 05/27/17 at 19:30; Stop 05/29/17 at 09:28; Status DC Rivaroxaban (Xarelto) 20 mg DAILY PO Last administered on 06/04/17at 08:53; Start 06/04/17 at 09:00 Rocuronium [place] (Zemuron Inj) 50 mg BOLUS ONCE IV Last administered on 05/27at 19:45; Start 05/27/17 at 19:45; Stop 05/27/17 at 19:46; Status DC Sodium Chloride 1,000 ml @ 999 mls/hr BOLUS ONCE IV ; Start 05/28/17 at 09:30 ; Stop 05/28/17 at 10:30; Status DC Sodium Phosphate 30 mmol/Sodium Chloride 250 ml @ 42 mls/hr UNSCH PRN IV For Phosphorus < 2.5 mg/dL; Start 05/27/17 at 20:45; Stop 06/02/17 at 09:29; Status DC Tizanidine HCl (Zanaflex) 4 mg TID PO Last administered on 06/04/17at 18:17; Start 05/30/17 at 18:00 Valsartan (Diovan) 320 mg DAILY PO Last administered on 06/04/17at 08:52; Start 05/30/17 at 14:15 Vancomycin HCl 1000 mg/Sodium Chloride 250 ml @ 250 mls/hr Q12H IV Last administered on 05/28/17at 23:00; Start 05/27/17 at 23:00; Stop 05/29/17 at 09:28 ; Status DC Zolpidem Tartrate (Ambien) 10 mg HS PRN PO INSOMNIA Last administered on at 21:35; Start 05/30/17 at 14:15; Stop 05/31/17 at 21:42; Status DC A/P Problem List: (1) Atrial fibrillation with RVR ICD Code: I48.91 - Unspecified atrial fibrillation (2) Pneumonia ICD Code: J18.9 - Pneumonia, unspecified organism Status: Acute Assessment and Plan A/P Choking with aspiration into airway- resolved. Acute respiratory failure- resolved. Aspiration pneumonia/EColi finished the course of the antibiotic. CXR bilateral opacities-improving. of note , yeast was reported in bronchial washing; this was d/w ; recommended outpatient f/u. Parkinson's disease Anxiety All sedation discontinued Resumed Sinemet Glaucoma Continue trusopt Atrial fibrillation with RVR -now NSR left bundle branch block elevated troponin Hypertension continue metoprolol,cardizem and amiodarone. echo with mildly reduced LV function- not an optimal study. cardiology consult appreciated; outpatient f/u with cardiology; d/w the patient and his . Hypothyroidism Obtained TSH--> normal. Synthroid 50 mcg po daily Discharge Planning dc to SNF today. see med list. f/u; pcp and cardiology. d/w the patient. d/w the case management. time spent 35 min. Rahul Lerma MD Jun 05, 2017 08:54
[2017-06-05] MEDS ORDERED: CLON2TAB PO (08:58)
[2017-06-05] MEDS ORDERED: METH20CA4 PO (08:58)
[2017-06-05] MEDS ORDERED: OXYC1TAB63 PO (08:58)
[2017-06-05] MEDS ORDERED: METO50TA PO (08:59)
[2017-06-05] MEDS: FERROUS SULFATE 325 MG (65 MG ELEMENTAL IRON) TAB PO SCH (09:31)
[2017-06-05] MEDS: AMIODARONE 200 MG TAB PO SCH (09:31)
[2017-06-05] MEDS: ERGOCALCIFEROL (VIT D2) 50,000 UNIT CAP PO SCH (09:31)
[2017-06-05] MEDS: CARBIDOPA/LEVODOPA 25 MG/100 MG TAB PO SCH (09:31)
[2017-06-05] MEDS: RIVAROXABAN 20 MG TAB PO SCH (09:31)
[2017-06-05] MEDS: DORZOLAMIDE 2% OPTH SOLN 200 DROP/10 ML BTLO LEFT EYE SCH (09:32)
[2017-06-05] MEDS: VALSARTAN 160 MG TAB PO SCH (09:32)
[2017-06-05] MEDS: FAMOTIDINE 20 MG TAB PO SCH (09:32)
== END 2017-06-05 11:34 | DRG 853 ==
LOC: NEPC 06:46 → NEDA 09:37 → NEDH 15:16 → HCIS 16:40 → HCVI 19:25 → HIMW 05-28 05:15 → N07B 06-01 18:13
PROVIDERS: ADMIT Internal Medicine; ATTEND Internal Medicine
PROC: 0B9M8ZX Drainage of Bilateral Lungs, Via Natural or Artificial Opening Endoscopic, Diagnostic (ICD-10-PCS; principal; 2017-05-27)
PROC: 5A1945Z Respiratory Ventilation, 24-96 Consecutive Hours (ICD-10-PCS; 2017-05-27)
PROC: 0BH18EZ Insertion of Endotracheal Airway into Trachea, Via Natural or Artificial Opening Endoscopic (ICD-10-PCS; 2017-05-27)
DX: A41.9 Sepsis, unspecified organism (principal); J69.0 Pneumonitis due to inhalation of food and vomit; J96.01 Acute respiratory failure with hypoxia; G20 Parkinson's disease; I48.0 Paroxysmal atrial fibrillation; D50.9 Iron deficiency anemia, unspecified; B96.20 Unspecified Escherichia coli [E. coli] as the cause of diseases classified elsewhere; I44.7 Left bundle-branch block, unspecified; I10 Essential (primary) hypertension; E03.9 Hypothyroidism, unspecified; K21.9 Gastro-esophageal reflux disease without esophagitis; F32.9 Major depressive disorder, single episode, unspecified; F41.9 Anxiety disorder, unspecified; M19.90 Unspecified osteoarthritis, unspecified site; H40.9 Unspecified glaucoma; Z96.653 Presence of artificial knee joint, bilateral; Z82.49 Family history of ischemic heart disease and other diseases of the circulatory system; Z87.01 Personal history of pneumonia (recurrent); Z87.11 Personal history of peptic ulcer disease
CPT/HCPCS: 36600; 71045; 74230; 80048; 80053; 80076; 80202; 81001; 82533; 82550; 82552; 82570; 82805; 83605; 83690; 83735; 83930; 83935; 84100; 84132; 84300; 84443; 84484; 85007; 85025; 85027; 85610; 85730; 87015; 87040; 87070; 87102; 87116; 87205; 87206; 87449; 87641; 93005; 93306; 94002; 94003; 94150; 94640; 94664; 96365; 96375; J0131; J0282; J0696; J1160; J1644; J1956; J2250; J2270; J2543; J3010; J3370; J3475; J3480; J7030; J7050